=== PATIENT | female | born 1950 | race Caucasian/White ===

== ENCOUNTER → 2019-01-12 | Outpatient (CLI) | payer MEDICARE, OTHER ==
[2019-01-12 12:20] LABS: CLARITY,URINE CLOUDY; COLOR,URINE YELLOW; GLUCOSE, URINE (UA) NEGATIVE (NEGATIVE); KETONES,URINE NEGATIVE (NEGATIVE); NITRITE,URINE POSITIVE (NEGATIVE); PH,URINE 5.5 (5-9); PROTEIN,URINE 2+ (NEGATIVE)
[2019-01-12 12:21] LABS: BACTERIA,URINE MODERATE /HPF; BILIRUBIN,URINE 1+ (NEGATIVE); LEUKOCYTE ESTERASE ,URINE 2+ (NEGATIVE); RBC,URINE 50-100 /HPF; SQUAMOUS EPITHELIAL CELL,UR 0-2 /HPF; UROBILINOGEN,URINE 0.2 MG/DL (NORMAL); WBC,URINE TNTC /HPF
== END ==
LOC: LAB FS 08:37
PROVIDERS: ATTEND Family Medicine
DX: N30.00 Acute cystitis without hematuria (principal); Z87.440 Personal history of urinary (tract) infections
CPT/HCPCS: 81000; 87077; 87088; 87184; 87186

== ENCOUNTER 2019-03-07 14:13 | Outpatient (RCR) | payer MEDICARE, OTHER ==
[2019-03-07 14:35] LABS: BILIRUBIN,URINE NEGATIVE (NEGATIVE); CLARITY,URINE CLOUDY; COLOR,URINE YELLOW; GLUCOSE, URINE (UA) NEGATIVE (NEGATIVE); KETONES,URINE 1+ (NEGATIVE); NITRITE,URINE NEGATIVE (NEGATIVE); PH,URINE 5.5 (5-9); PROTEIN,URINE TRACE (NEGATIVE)
[2019-03-07 14:36] LABS: BACTERIA,URINE MODERATE /HPF; CALCIUM OXALATE CRYSTALS,UR MODERATE /LPF; LEUKOCYTE ESTERASE ,URINE TRACE (NEGATIVE); WBC,URINE 50-100 /HPF
== END 2019-06-05 | disposition home or self-care (01) ==
LOC: LAB 14:13
PROVIDERS: ATTEND Family Medicine
DX: N39.0 Urinary tract infection, site not specified (principal)
CPT/HCPCS: 81000; 87088

== ENCOUNTER → 2019-10-14 | Outpatient (CLI) | payer MEDICARE, OTHER ==
[2019-10-14 18:30] LABS: COLOR,URINE YELLOW
[2019-10-14 18:31] LABS: BACTERIA,URINE TRACE /HPF; BILIRUBIN,URINE NEGATIVE (NEGATIVE); CLARITY,URINE CLEAR; GLUCOSE, URINE (UA) NEGATIVE (NEGATIVE); KETONES,URINE NEGATIVE (NEGATIVE); LEUKOCYTE ESTERASE ,URINE NEGATIVE (NEGATIVE); NITRITE,URINE NEGATIVE (NEGATIVE); PH,URINE 8.5 (5-9); PROTEIN,URINE NEGATIVE (NEGATIVE); RBC,URINE 0-2 /HPF; SQUAMOUS EPITHELIAL CELL,UR RARE /HPF; WBC,URINE 0-2 /HPF
== END ==
LOC: LAB FS 17:23
PROVIDERS: ATTEND Family Medicine
DX: R50.9 Fever, unspecified (principal)
CPT/HCPCS: 81000; 87804

== ENCOUNTER → 2019-12-07 | Outpatient (CLI) | payer MEDICARE, OTHER ==
[2019-12-07 10:35] LABS: POTASSIUM 3.6 MMOL/L (3.6-5.0)
[2019-12-07 10:36] LABS: BILIRUBIN,TOTAL 0.8 MG/DL (0.1-1.0); CALCIUM 9.9 MG/DL (8.5-10.1); CREATININE SERUM 1.1 MG/DL (0.60-1.30); TOTAL PROTEIN 7.3 GM/DL (6.4-8.2)
[2019-12-07 10:38] LABS: ALBUMIN 3.8 GM/DL (3.2-4.5)
[2019-12-07 15:33] LABS: FREE T4 (FREE THYROXINE) 1.09 NG/DL (0.70-1.48)
== END ==
LOC: LAB FS 08:38
PROVIDERS: ATTEND Family Medicine
DX: E03.9 Hypothyroidism, unspecified (principal); E78.5 Hyperlipidemia, unspecified
CPT/HCPCS: 36415; 80053; 80061; 84439; 84443

== ENCOUNTER → 2019-12-16 | Outpatient (CLI) | payer MEDICARE, OTHER ==
[2019-12-16 16:33] LABS: BACTERIA,URINE FEW /HPF; BILIRUBIN,URINE NEGATIVE (NEGATIVE); CLARITY,URINE CLEAR; COLOR,URINE YELLOW; GLUCOSE, URINE (UA) NEGATIVE (NEGATIVE); KETONES,URINE TRACE (NEGATIVE); LEUKOCYTE ESTERASE ,URINE NEGATIVE (NEGATIVE); NITRITE,URINE NEGATIVE (NEGATIVE); PH,URINE 6.5 (5-9); PROTEIN,URINE TRACE (NEGATIVE); RBC,URINE 0-2 /HPF
[2019-12-16 16:34] LABS: GRANULAR CASTS,URINE 0-2 /LPF
[2019-12-16 16:44] LABS: BASOPHILS # (AUTO) 0.1 10^3/uL (0.0-0.1); BASOPHILS % (AUTO) 2 % (0-10); EOSINOPHILS # (AUTO) 0.4 10^3/uL (0.0-0.3); EOSINOPHILS % (AUTO) 6 % (0-10); ERYTHROCYTE SEDIMENTATION RATE 6 MM/HR (0-30); HEMATOCRIT 38 % (35-52); LYMPHOCYTES # (AUTO) 1.7 X 10^3 (1.0-4.0); LYMPHOCYTES % (AUTO) 30 % (12-44); MEAN CORPUSCULAR HEMOGLOBIN 26 PG (25-34); MEAN CORPUSCULAR HGB CONC 32 G/DL (32-36); MEAN CORPUSCULAR VOLUME 83 FL (80-99); MEAN PLATELET VOLUME 10.7 FL (7.4-10.4); MONOCYTES # (AUTO) 0.5 X 10^3 (0.0-1.0); MONOCYTES % (AUTO) 8 % (0-12); NEUTROPHILS # (AUTO) 2.9 X 10^3 (1.8-7.8); NEUTROPHILS % (AUTO) 53 % (42-75); PLATELET COUNT 335 10^3/uL (130-400); RED CELL DISTRIBUTION WIDTH 15.6 % (10.0-14.5); WHITE BLOOD COUNT 5.5 10^3/uL (4.3-11.0)
== END ==
LOC: LAB FS 14:43
PROVIDERS: ATTEND Family Medicine
DX: R30.0 Dysuria (principal); R53.82 Chronic fatigue, unspecified; M25.541 Pain in joints of right hand
CPT/HCPCS: 36415; 81000; 82607; 85025; 85652; 86038; 86039; 86141; 87088

== ENCOUNTER → 2020-01-18 | Outpatient (CLI) | payer MEDICARE, OTHER | LOC: LAB FS 12:22 | PROVIDERS: ATTEND Family Medicine | DX: Z20.828 Contact with and (suspected) exposure to other viral communicable diseases (principal) | CPT/HCPCS: 87635 ==

== ENCOUNTER → 2020-06-07 | Outpatient (CLI) | payer MEDICARE, OTHER ==
[2020-06-07 14:12] LABS: CLARITY,URINE CLEAR; COLOR,URINE YELLOW; GLUCOSE, URINE (UA) NEGATIVE (NEGATIVE); KETONES,URINE TRACE (NEGATIVE); PROTEIN,URINE NEGATIVE (NEGATIVE)
[2020-06-07 14:13] LABS: BACTERIA,URINE NEGATIVE /HPF; BILIRUBIN,URINE NEGATIVE (NEGATIVE); LEUKOCYTE ESTERASE ,URINE NEGATIVE (NEGATIVE); NITRITE,URINE NEGATIVE (NEGATIVE); RBC,URINE 0-2 /HPF
[2020-06-07 14:15] LABS: BILIRUBIN,TOTAL 0.8 MG/DL (0.1-1.0); CALCIUM 9.8 MG/DL (8.5-10.1); CREATININE SERUM 0.98 MG/DL (0.60-1.30); POTASSIUM 3.8 MMOL/L (3.6-5.0); TOTAL PROTEIN 7.5 GM/DL (6.4-8.2)
== END ==
LOC: LAB FS 13:18
PROVIDERS: ATTEND Family Medicine
DX: I10 Essential (primary) hypertension (principal); N39.0 Urinary tract infection, site not specified; E53.8 Deficiency of other specified B group vitamins; E03.9 Hypothyroidism, unspecified
CPT/HCPCS: 36415; 80053; 80061; 81000; 82607; 84443

== ENCOUNTER → 2020-07-31 | Outpatient (CLI) | payer MEDICARE, OTHER | LOC: LAB FS 10:00 | PROVIDERS: ATTEND Family Medicine | DX: Z20.828 Contact with and (suspected) exposure to other viral communicable diseases (principal) | CPT/HCPCS: 87635 ==

== ENCOUNTER 2020-10-29 09:49 | Emergency (ER) | payer MEDICARE, OTHER ==
--- NOTE | 2020-10-29 10:03 | ED Chest Pain ---
General Chief Complaint: Chest Pain Stated Complaint: CHEST PAIN Nursing Triage Note: Mid sternal chest pain that started after walking 1 mile. Started approx 20 minutes. Is nauseous but no vomiting. Has hx of htn. Nursing Sepsis Screen: No Definite Risk History of Present Illness Date Seen by Provider: Oct 29, 2020 Time Seen by Provider: 09:50 Initial Comments 70-year-old female presents with onset of chest pain just prior to arrival. She had just walked 1 mile, a normal routine activity without any discomfort or pain and afterwards noted when she was at rest to have some central chest pain. Denies radiation to neck jaw or extremity. Denies associated nausea or vomiting. Denies recent illness, cough, shortness of air, fever or chills. Denies history of any heart problems, she has had a stress test within the last 15 years which was normal. History of gastric reflux and she takes Protonix as well as Carafate daily. Allergies and Home Medications Allergies Coded Allergies: No Known Drug Allergies (Unverified , 10/29/20) Home Medications Nitroglycerin 0.4 Mg Tab.subl, 0.4 MG SL UD PRN for CHEST PAIN Prescribed by: FARRUKH MADDEN on 10/29/20 1301 Patient Home Medication List Home Medication List Reviewed: Yes Review of Systems Review of Systems Constitutional: No dizziness, No fever, No malaise, No weakness EENTM: No Symptoms Reported Respiratory: Denies Cough, Denies Shortness of Air, Denies SOA With Exertion, Denies SOA at Rest, Denies Stridor, Denies Wheezing Cardiovascular: See HPI, Chest Pain; Denies Edema, Denies Irregular Heart Rate, Denies Lightheadedness, Denies Palpitations, Denies Syncope Gastrointestinal: Denies Abdominal Pain, Denies Constipated, Denies Diarrhea, Denies Nausea, Denies Poor Appetite, Denies Vomiting Genitourinary: No Symptoms Reported Musculoskeletal: No back pain, No joint pain Skin: No change in color, No lesions, No rash Psychiatric/Neurological: Denies Anxiety, Denies Depressed, Denies Tingling, Denies Tremors, Denies Weakness Past Qbvefoz-Pouiqi-Gbucfe Hx Past Med/Social Hx: Reviewed Nursing Past Med/Soc Hx Patient Social History Recent Infectious Disease Expo: No Physical Exam Vital Signs Vital Signs - First Documented 10/29/20 09:52 Temp 35.5 Pulse 80 Resp 16 B/P (MAP) 191/116 (141) Pulse Ox 97 Capillary Refill : Less Than 3 Seconds Height, Weight, BMI Height: '" Weight: lbs. oz. kg; BMI Method: General Appearance: No Apparent Distress, WD/WN HEENT: PERRL/EOMI, Normal ENT Inspection Neck: Full Range of Motion, Non Tender, Supple Respiratory: Chest Non Tender, Lungs Clear, Normal Breath Sounds, No Accessory Muscle Use, No Respiratory Distress Cardiovascular: Regular Rate, Rhythm, No Edema, No JVD, Normal Peripheral Pulses Gastrointestinal: Normal Bowel Sounds, No Pulsatile Mass, Non Tender, Soft Extremity: Normal Capillary Refill, Normal Inspection, Non Tender Neurologic/Psychiatric: Alert, Oriented x3, No Motor/Sensory Deficits, Normal Mood/Affect Skin: Normal Color, Warm/Dry Progress/Results/Core Measures Results/Orders Lab Results Laboratory Tests Test 10/29/20 10:05 10/29/20 12:31 Range/Units White Blood Count 6.8 4.3-11.0 10^3/uL Red Blood Count 4.64 4.35-5.85 10^6/uL Hemoglobin 11.7 11.5-16.0 G/DL Hematocrit 37 35-52 % Mean Corpuscular Volume 80 80-99 FL Mean Corpuscular Hemoglobin 25 25-34 PG Mean Corpuscular Hemoglobin Concent 32 32-36 G/DL Red Cell Distribution Width 15.0 H 10.0-14.5 % Platelet Count 366 130-400 10^3/uL Mean Platelet Volume 10.8 H 7.4-10.4 FL Immature Granulocyte % (Auto) 0 % Neutrophils (%) (Auto) 44 42-75 % Lymphocytes (%) (Auto) 44 12-44 % Monocytes (%) (Auto) 8 0-12 % Eosinophils (%) (Auto) 3 0-10 % Basophils (%) (Auto) 1 0-10 % Neutrophils # (Auto) 2.9 1.8-7.8 X 10^3 Lymphocytes # (Auto) 3.0 1.0-4.0 X 10^3 Monocytes # (Auto) 0.6 0.0-1.0 X 10^3 Eosinophils # (Auto) 0.2 0.0-0.3 10^3/uL Basophils # (Auto) 0.1 0.0-0.1 10^3/uL Immature Granulocyte # (Auto) 0.0 0.0-0.1 10^3/uL Sodium Level 139 135-145 MMOL/L Potassium Level 3.4 L 3.6-5.0 MMOL/L Chloride Level 106 98-107 MMOL/L Carbon Dioxide Level 24 21-32 MMOL/L Anion Gap 9 5-14 MMOL/L Blood Urea Nitrogen 15 7-18 MG/DL Creatinine 0.89 0.60-1.30 MG/DL Estimat Glomerular Filtration Rate > 60 BUN/Creatinine Ratio 17 Glucose Level 92 70-105 MG/DL Calcium Level 9.0 8.5-10.1 MG/DL Corrected Calcium 9.2 8.5-10.1 MG/DL Total Bilirubin 0.5 0.1-1.0 MG/DL Aspartate Amino Transf (AST/SGOT) 15 5-34 U/L Alanine Aminotransferase (ALT/SGPT) 9 0-55 U/L Alkaline Phosphatase 54 40-136 U/L Troponin I < 0.30 < 0.30 <0.30 NG/ML Total Protein 6.9 6.4-8.2 GM/DL Albumin 3.7 3.2-4.5 GM/DL My Orders Orders - ROVENSTINE,FARRUKH L DO Ed Iv/Invasive Line Start (10/29/20 10:03) Chest 1 View Ap/Pa Only (10/29/20 10:03) Ekg Tracing (10/29/20 10:03) Cbc With Automated Diff (10/29/20 10:03) Comprehensive Metabolic Panel (10/29/20 10:03) Troponin I Fs (10/29/20 10:03) Aspirin Chewable Tablet (Baby Aspirin Ch (10/29/20 10:15) Nitroglycerin 0.4 Mg Btl 25's (Nitrostat (10/29/20 10:15) Ondansetron Injection (Zofran Injectio (10/29/20 10:30) Ondansetron Injection (Zofran Injectio (10/29/20 10:18) Troponin I Fs (10/29/20 12:30) Lidocaine 2% Viscous 15 Ml (Xylocaine Vi (10/29/20 11:00) Famotidine Injection (Pepcid Injection) (10/29/20 11:00) Antacid Suspension (Mylanta Suspension (10/29/20 11:00) Medications Given in ED Current Medications Medications Dose Ordered Sig/Dwight Route Start Time Stop Time Status Last Admin Dose Admin Al Hydrox/Mg Hydrox/Simethicone 30 ml ONCE ONCE PO 10/29/20 11:00 10/29/20 11:01 DC 10/29/20 10:56 30 ML Aspirin 324 mg ONCE ONCE PO 10/29/20 10:15 10/29/20 10:16 DC 10/29/20 10:08 324 MG Famotidine 20 mg ONCE ONCE IVP 10/29/20 11:00 10/29/20 11:01 DC 10/29/20 10:56 20 MG Lidocaine HCl 5 ml ONCE ONCE PO 10/29/20 11:00 10/29/20 11:01 DC 10/29/20 10:56 5 ML Nitroglycerin 0.4 mg NEEDED PRN SL 10/29/20 10:15 10/29/20 13:36 DC 10/29/20 10:30 0.4 MG Ondansetron HCl 4 mg ONCE ONCE IVP 10/29/20 10:30 10/29/20 10:31 DC 10/29/20 10:27 4 MG Vital Signs/I&O 10/29/20 10/29/20 09:52 13:36 Temp 35.5 Pulse 80 66 Resp 16 15 B/P (MAP) 191/116 (141) 130/74 Pulse Ox 97 96 Blood Pressure Mean: 141 Progress Progress Note : Progress Note Pain not significantly resolved with nitroglycerin x2. However, it did resolved after Pepcid and a GI cocktail with no return of pain to her whole ER stay. Troponin negative x2 with second at over 3 hours. Otherwise unremarkable with normal vital signs and normal EKG without ischemic change. Patient sent home w Rx for NTG and advised to schedule OutPt stress testing w Dr Romero. Called his office to notify, he has avail appt on @ 0900. Initial ECG Impression Date: Oct 29, 2020 Initial ECG Impression Time: 10:00 Initial ECG Rate: 78 Initial ECG Rhythm: Normal Sinus Initial ECG Intervals: Normal Initial ECG Impression: Normal Initial ECG Comparisson: No Previous ECG Available Departure Impression Primary Impression: Chest pain Qualified Codes: R07.9 - Chest pain, unspecified Disposition: HOME, SELF-CARE Condition: Improved Departure-Patient Inst. Referrals: DENA GARCIA MD (PCP/Family) Primary Care Physician EMIGDIO ROMERO MD Patient Instructions: Chest Pain (DC) Add. Discharge Instructions: Call Dr Romero's office to confirm scheduling of a stress test this week All discharge instructions reviewed with patient and/or family. Voiced understanding. Scripts Nitroglycerin (Nitroglycerin) 0.4 Mg Tab.subl 0.4 MG SL UD PRN for CHEST PAIN, #20 TAB Prov: FARRUKH MADDEN DO 10/29/20 FARRUKH MADDEN DO Oct 29, 2020 10:03
[2020-10-29] MEDS: NITROGLYCERIN 0.4 MG SL TABS BTL 25'S SL PRN ×2 (10:08→10:30)
[2020-10-29] MEDS ORDERED: ASPIRIN 81 MG CHEW (CHILDREN'S ASA) PO ONE (10:15)
[2020-10-29] MEDS ORDERED: ONDANSETRON 4 MG/2 ML (SDV) Z0FRAN ONE (10:18)
[2020-10-29 10:27] LABS: BASOPHILS % (AUTO) 1 % (0-10); EOSINOPHILS # (AUTO) 0.2 10^3/uL (0.0-0.3); EOSINOPHILS % (AUTO) 3 % (0-10); HEMATOCRIT 37 % (35-52); HEMOGLOBIN 11.7 G/DL (11.5-16.0); LYMPHOCYTES % (AUTO) 44 % (12-44); MEAN CORPUSCULAR HEMOGLOBIN 25 PG (25-34); MEAN CORPUSCULAR HGB CONC 32 G/DL (32-36); MEAN CORPUSCULAR VOLUME 80 FL (80-99); MEAN PLATELET VOLUME 10.8 FL (7.4-10.4); MONOCYTES # (AUTO) 0.6 X 10^3 (0.0-1.0); MONOCYTES % (AUTO) 8 % (0-12); NEUTROPHILS # (AUTO) 2.9 X 10^3 (1.8-7.8); NEUTROPHILS % (AUTO) 44 % (42-75); PLATELET COUNT 366 10^3/uL (130-400); WHITE BLOOD COUNT 6.8 10^3/uL (4.3-11.0)
[2020-10-29 10:28] LABS: BASOPHILS # (AUTO) 0.1 10^3/uL (0.0-0.1)
[2020-10-29] MEDS ORDERED: ONDANSETRON 4 MG/2 ML (SDV) Z0FRAN IVP ONE (10:30)
[2020-10-29 10:36] LABS: BUN/CREATININE RATIO 17; CARBON DIOXIDE 24 MMOL/L (21-32); CHLORIDE 106 MMOL/L (98-107); CREATININE SERUM 0.89 MG/DL (0.60-1.30); GFR ESTIMATED > 60; GLUCOSE 92 MG/DL (70-105); POTASSIUM 3.4 MMOL/L (3.6-5.0); SODIUM 139 MMOL/L (135-145)
[2020-10-29 10:37] LABS: ALANINE AMINOTRANSFERASE 9 U/L (0-55); ALBUMIN 3.7 GM/DL (3.2-4.5); ALKALINE PHOSPHATASE 54 U/L (40-136); BILIRUBIN,TOTAL 0.5 MG/DL (0.1-1.0); TOTAL PROTEIN 6.9 GM/DL (6.4-8.2)
--- NOTE | 2020-10-29 10:51 | Diagnostic Imaging Report ---
INDICATION: Chest pain. FINDINGS: The heart size is within normal limits. No vascular congestion. The lungs are clear. No failure, effusion, or pneumothorax. IMPRESSION: No acute appearing abnormality. Dictated by: Dictated on workstation # [id number]
[2020-10-29] MEDS ORDERED: FAMOTIDINE 20MG/2ML IV (PEPCID) IVP ONE (11:00)
[2020-10-29] MEDS ORDERED: ANTACID SUSP 30 ML UDC (MYLANTA) PO ONE (11:00)
[2020-10-29] MEDS ORDERED: LIDOCAINE 2% VISCOUS 15 ML UDC PO ONE (11:00)
[2020-10-29] MEDS ORDERED: NITR0.4T39 SL (13:01)
[2020-10-29 13:36] VITALS: BP 130/74
== END 2020-10-29 13:36 | disposition home or self-care (01) ==
LOC: EDUNIT# 09:49 → ER FS 09:51
DX: R07.2 Precordial pain (principal); I10 Essential (primary) hypertension; K21.9 Gastro-esophageal reflux disease without esophagitis; Z79.899 Other long term (current) drug therapy
CPT/HCPCS: 36415; 71045; 80053; 84484; 85025; 93005

== ENCOUNTER 2020-11-01 11:58 | Outpatient (CLI) | payer MEDICARE, OTHER ==
[~2020-11-01] VITALS: Ht 160 cm; Wt 81.6 kg
[~2020-11-01 11:58] MED LIST: NITR0.4T39 SL
[2020-11-02] MEDS ORDERED: PANT40TA2 PO (10:58)
[2020-11-02] MEDS ORDERED: MAGN250T13 PO (10:58)
[2020-11-02] MEDS ORDERED: MTC10T PO (10:58)
[2020-11-02] MEDS ORDERED: SUCR1TAB36 PO (10:58)
[2020-11-02] MEDS ORDERED: DULO30CA49 PO (10:58)
[2020-11-02] MEDS ORDERED: POTA99TA21 PO (10:58)
[2020-11-02] MEDS ORDERED: LEVO50TA PO (10:58)
[2020-11-02] MEDS ORDERED: CELE-63 PO (10:58)
[2020-11-02] MEDS ORDERED: FAMO-119 PO (10:58)
[2020-11-02] MEDS ORDERED: CALC-308 PO (10:58)
[2020-11-02] MEDS ORDERED: ZOLP10TA PO (10:58)
[2020-11-02] MEDS ORDERED: CETI10CA PO (10:58)
[2020-11-02] MEDS ORDERED: LISI10TA25 PO (10:58)
== END 2020-11-01 14:39 | disposition home or self-care (01) ==
LOC: PREOP 11:58
PROVIDERS: ATTEND Surgery
DX: Z01.818 Encounter for other preprocedural examination (principal)

== ENCOUNTER 2020-11-02 10:24 | Day surgery (SDC) | payer MEDICARE, OTHER ==
[2020-11-02] VITALS (10 sets, daily range): BP systolic 143–203; BP diastolic 84–119
[~2020-11-02] VITALS: Ht 160 cm; Wt 81.6 kg
[2020-11-02] MEDS ORDERED: LACTATED RINGERS 1,000 ML IV STA (10:25)
[2020-11-02] MEDS ORDERED: NS IV 500 ML 500 ML ONE (10:27)
[2020-11-02] MEDS ORDERED: HURRICAINE EXT TUBE (BENZOCAINE) XX PRN (10:30)
[2020-11-02] MEDS ORDERED: LIDOCAINE JELLY 2% 6 ML SYRINGE MM PRN (10:30)
[2020-11-02] MEDS ORDERED: POTA99TA21 PO (10:58)
[2020-11-02] MEDS ORDERED: CETI10CA PO (10:58)
[2020-11-02] MEDS ORDERED: LISI10TA25 PO (10:58)
[2020-11-02] MEDS ORDERED: ZOLP10TA PO (10:58)
[2020-11-02] MEDS ORDERED: MAGN250T13 PO (10:58)
[2020-11-02] MEDS ORDERED: FAMO-119 PO (10:58)
[2020-11-02] MEDS ORDERED: MTC10T PO (10:58)
[2020-11-02] MEDS ORDERED: DULO30CA49 PO (10:58)
[2020-11-02] MEDS ORDERED: SUCR1TAB36 PO (10:58)
[2020-11-02] MEDS ORDERED: PANT40TA2 PO (10:58)
[2020-11-02] MEDS ORDERED: LEVO50TA PO (10:58)
[2020-11-02] MEDS ORDERED: CALC-308 PO (10:58)
[2020-11-02] MEDS ORDERED: CELE-63 PO (10:58)
--- NOTE | 2020-11-02 11:26 | Conscious Sedation/ASA ---
Conscious Sedation Pre-Proced Time 11:00 ASA Score 2 For ASA 3 and 4: Consider anesthesia and medical clearance. Also, for patients with a history of failed moderate sedation consider anesthesia. Airway Lungs Heart ASA score ASA 1: a normal healthy patient ASA 2: a patient with a mild systemic disease (mid diabetes, controlled hypertension, obesity ASA 3: a patient with a severe systemic disease that limits activity (angina, COPD, prior Myocardial infarction) ASA 4: a patient with an incapacitating disease that is a constant threat to life (CHF, renal failure) ASA 5: a moribund patient not expected to survive 24 hrs. (ruptured aneurysm) ASA 6: a declared brain- patient whose organs are being harvested. For emergent operations, add the letter E after the classification Mallampati Classification Grade 2 Sedation Plan Analgesia, Amnesia, Plan communicated to team members, Discussed options with patient/fam, Discussed risks with patient/fam The patient is an appropriate candidate to undergo the planned procedure, sedation, and anesthesia. The patient immediately re-assessed prior to indication. CONNOR TOPETE MD Nov 02, 2020 11:26
--- NOTE | 2020-11-02 11:27 | Progress Note-Pre Operative ---
Pre-Operative Progress Note H&P Reviewed The H&P was reviewed, patient examined and no changes noted. Date Seen by Provider: Nov 02, 2020 Time Seen by Provider: 11:00 Date H&P Reviewed: Nov 02, 2020 Time H&P Reviewed: 11:00 Pre-Operative Diagnosis: GERD, epigastric pain CONNOR TOPETE MD Nov 02, 2020 11:27
--- NOTE | 2020-11-02 11:28 | Discharge Inst-Surgical ---
D/C Lap Instructions-EFREM Follow Up Appt in 2-4 weeks Activity as tolerated High Fiber Diet 25g or more per day Avoid Alcohol, Caffeine, Spicy [place] and Acid foods. Drink 64 fluid oz or more of fluids per day. Symptoms to Report: Fever over 101 degree F, Nausea/Vomiting If any problems/questions: Contact your physician or go to Emergency Room CONNOR TOPETE MD Nov 02, 2020 11:28
[2020-11-02] MEDS ORDERED: HYDROcodone/APAP 5 MG/325 MG (LORTAB) TAB PO PRN (11:30)
[2020-11-02] MEDS ORDERED: ONDANSETRON 4 MG/2 ML (SDV) Z0FRAN IVP PRN (11:30)
[2020-11-02] MEDS ORDERED: morphine INJ 10 MG/ML 1ML (SYR OR VIAL) IVP PRN ×2 (11:30)
[2020-11-02] MEDS ORDERED: ACETAMINOPHEN 325 MG TABLET PO PRN (11:30)
[2020-11-02] MEDS ORDERED: LIDOCAINE JELLY 2% 6 ML SYRINGE ONE (12:33)
[2020-11-02] MEDS ORDERED: MIDAZOLAM 5 MG/5 ML (VERSED) VIAL ONE ×2 (12:33)
[2020-11-02] MEDS ORDERED: HURRICAINE EXT TUBE (BENZOCAINE) ONE (12:34)
[2020-11-02] MEDS ORDERED: fentaNYL INJ 100 MCG/2 ML AMP ONE (12:34)
[2020-11-02] MEDS ORDERED: MIDAZOLAM 5 MG/5 ML (VERSED) VIAL IV ONE (14:00)
[2020-11-02] MEDS ORDERED: fentaNYL INJ 100 MCG/2 ML AMP IVP ONE (14:00)
--- NOTE | 2020-11-02 20:50 | OPERATIVE REPORT ---
DATE OF SERVICE: 11/02/2020 ATTENDING PRIMARY CARE PHYSICIAN: Dr. Sandy Glass. PREOPERATIVE DIAGNOSES: Gastroesophageal reflux disease, chest pain. POSTOPERATIVE DIAGNOSES: Reflux esophagitis stage II, moderate size hiatal hernia approximately 4 cm in size, slightly enlarged gastric pouch likely indicating inferior band slippage. No band erosion. Mild gastritis. PROCEDURE: EGD with biopsy. SURGEON: Connor Topete MD. ANESTHESIA: Conscious sedation. ESTIMATED BLOOD LOSS: Minimal. FINDINGS: Reflux esophagitis stage II, moderate size hiatal hernia approximately 4 cm in size, slightly enlarged gastric pouch. No band erosion. Mild gastritis. DISPOSITION: The patient tolerated the procedure well. INDICATIONS: The patient is a 70-year-old female referred over to us for ongoing issues with reflux for many years. She also does has had chest pain due to this; however, are not cardiac related. 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 basis. She has had a laparoscopic adjustable gastric band for what she feels to be close to 20 years and did lose 90 pounds at her best; however, has gained approximately 45 pounds back. DESCRIPTION OF PROCEDURE: The patient was brought to the endoscopy suite, laid in the left lateral decubitus position with head slightly elevated. After adequate IV pain and sedative medications and conscious sedation anesthesia, the mouthpiece was applied. The endoscope was placed in the mouth, visualizing the pharynx and hypopharyngeal region. Vocal cords, epiglottis and vallecula identified and appeared to be normal. Endoscope was then gently intubated. The esophageal opening and esophagus insufflated. The endoscope was then advanced through the first, second and third portion of esophagus at the level of the GE junction, and reflux esophagitis stage II identified. There were no ulcers or strictures identified in this region. A biopsy was taken with forceps with visualization of good hemostasis. The endoscope was then advanced into the stomach. The gastric pouch and endoscope retroflexed, visualizing a moderate size hiatal hernia approximately 4 cm in size. The gastric pouch appeared to be slightly enlarged, which may indicate inferior slippage of the band as well. The endoscope was then easily advanced through the aperture of the adjustable gastric band and an endoscope retroflexed visualizing no band erosion. There was a mild gastritis. No formal ulcerations, polyps, or any neoplasms. A biopsy was taken of the antrum to rule out H. pylori. The endoscope was then advanced to the pylorus and the first and second portion of the duodenum, which appeared normal with no distal obstructions. The endoscope was then slowly withdrawn while taking a second look and suctioning of residual air with no additional findings. The patient tolerated the procedure well. Due to her symptomatology as well as a hiatal hernia as well as likely an inferior band slippage. We will recommend removal of the laparoscopic adjustable gastric band and allow the irritate chronic inflammation to subside over time. She then reports that she would like to proceed with further workup and evaluation for laparoscopic gastric sleeve resection; however, she would also need a simultaneous hiatal hernia repair. Job ID: [id number] DocumentID: [id number] Dictated Date: 11/02/2020 13:09:39 Generalist Date: 11/02/2020 20:49:40 Dictated By: CONNOR TOPETE MD MTDD
== END 2020-11-02 14:00 | disposition home or self-care (01) ==
LOC: ENDO 10:24
PROVIDERS: ATTEND Surgery
DX: K21.00 Gastro-esophageal reflux disease with esophagitis, without bleeding (principal); K29.50 Unspecified chronic gastritis without bleeding; K44.9 Diaphragmatic hernia without obstruction or gangrene; I10 Essential (primary) hypertension; E03.9 Hypothyroidism, unspecified; Z20.822 Contact with and (suspected) exposure to COVID-19; Z98.84 Bariatric surgery status; Z79.899 Other long term (current) drug therapy; Z79.890 Hormone replacement therapy
CPT/HCPCS: 88305

== ENCOUNTER → 2020-11-06 | Outpatient (CLI) | payer MEDICARE, OTHER ==
[~2020-11-06] VITALS: Ht 162 cm; Wt 81.0 kg
[~2020-11-06] MED LIST changes: +CALC-308 PO; +CATHETER FLUSH 10 ML SYR IV PRN; +CELE-63 PO; +CETI10CA PO; +DULO30CA49 PO; +FAMO-119 PO; +LEVO50TA PO; +LISI10TA25 PO; +MAGN250T13 PO; +MTC10T PO; +PANT40TA2 PO; +POTA99TA21 PO; +REGADENOSON 0.4 MG/5 ML SYR (LEXISCAN) IV ONE; +SUCR1TAB36 PO; +ZOLP10TA PO
[2020-11-06 16:52] VITALS: BP 142/90
--- NOTE | 2020-11-06 16:53 | Cardiology Stress Test Report ---
Stress Test Report Date of Procedure/Referring: Date of Procedure: Nov 06, 2020 PCP Emigdio Romero MD Admitting Physician Sandy Glass MD Indications: CP Baseline Heart Rate: 73 Baseline Blood Pressure: Blood Pressure Systolic: 142 Blood Pressure Diastolic: 90 Baseline EKG: Baseline EKG: NSR Summary After explaining the procedure to the patient, she signed a consent and then brought to the stress nuclear laboratory. Patient received 0.4 mg Lexiscan for stress test, ECG, heart rate and blood pressure were monitored continuously. Resting and stress dose of radio tracer were injected, imaging was acquired and reviewed in short axis, horizontal long axis and vertical long axis views. TID: 0.93 SSS: 3 SDS: 2 EF: 60 1. Patient tolerated Lexiscan well 2. No significant ischemia or infarction on SPECT images 3. Normal left ventricular size, EF 60% EMIGDIO ROMERO MD Nov 06, 2020 16:52
== END ==
LOC: CARD 11:00
PROVIDERS: ATTEND Internal Medicine Cardiovascular Disease
DX: R07.9 Chest pain, unspecified (principal)
CPT/HCPCS: 78452; 93017; A9502

== ENCOUNTER 2020-12-20 05:37 | Outpatient (CLI) | payer MEDICARE, OTHER ==
[~2020-12-20] VITALS: Ht 162.6 cm; Wt 79.5 kg
[~2020-12-20 05:37] MED LIST changes: -CATHETER FLUSH 10 ML SYR IV PRN; -REGADENOSON 0.4 MG/5 ML SYR (LEXISCAN) IV ONE
== END 2020-12-21 13:05 | disposition home or self-care (01) ==
LOC: PREOP 05:37
PROVIDERS: ATTEND Surgery
DX: Z01.818 Encounter for other preprocedural examination (principal)

== ENCOUNTER 2020-12-27 08:23 | Day surgery (SDC) | payer MEDICARE, OTHER ==
--- NOTE | 2020-12-20 07:25 | HISTORY AND PHYSICAL ---
DATE OF SERVICE: DATE OF PROCEDURE: 12/27/2020. ATTENDING PRIMARY CARE PHYSICIAN: Dr. Sandy Glass. HISTORY OF PRESENT ILLNESS: The patient is a 70-year-old female, who is known to us. She has had ongoing issues for many years with reflux and substernal chest pressure as well as burning sensation. 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 She is status post laparoscopic adjustable gastric band, 20 years ago and reports that she did lose 90 pounds at her best; however, has regained half of this weight back. She did undergo an EGD by us on 11/02/2020 and was found to have a stage II reflux esophagitis and moderate size hiatal hernia that was approximately 4 cm in size and there was a slightly enlarged gastric pouch likely indicating inferior band slippage; however, no erosions. There was also a mild gastritis identified. Biopsies were negative for H. pylori as well as negative for Jones's esophagus. She was then seen in the office and did have all the fluid removed from the lap band. It was discussed with her at that time due to her symptoms as well as findings of the band slippage that we would recommend also proceeding with removal of the lap band. PAST MEDICAL HISTORY: Morbid obesity, hypertension, hypothyroidism, and arthritis. PAST SURGICAL HISTORY: Laparoscopic cholecystectomy in 2004, laparoscopic adjustable gastric band in 1999, and removal of kidney stones in 1988. ALLERGIES: No known drug allergies. MEDICATIONS: Magnesium 250 mg, potassium 99 mg, duloxetine 30 mg, calcium 200 mg, Protonix 40 mg, Celebrex 200 mg, lisinopril 10 mg, Synthroid 50 mcg, Reglan 10 mg, Zyrtec, Pepcid, sucralfate 1 gram and zolpidem. SOCIAL HISTORY: Negative for smoke and social for alcohol. FAMILY HISTORY: Mother, hypertension and stroke. Father, myocardial infarction, DVT, and hypertension. REVIEW OF SYSTEMS: This is a well-nourished female in no acute distress. She is not experiencing any shortness of breath or difficulty breathing. She does report substernal chest pressure as well as burning sensation. No shortness of breath or difficulty breathing. No abdominal pain. She does report intermittent episodes of nausea and vomiting. No diarrhea or constipation. No red blood per rectum. No dark tarry stools. No fever or chills. No recent inadvertent weight loss. All other review of systems negative. PHYSICAL EXAMINATION: VITAL SIGNS: Stable. Current weight is 181.3 at 5 feet 3 inches. CHEST: Clear. Good breath sounds bilaterally. HEART: Regular, no murmurs. EXTREMITIES: No lower extremity edema. Negative Homans sign. HEENT: No scleral icterus. NECK: No cervical lymphadenopathy. ABDOMEN: Soft, nontender, and nondistended. SKIN: Warm, dry and pink. NEUROLOGIC: Awake, alert and oriented x3. ASSESSMENT AND PLAN: A 70-year-old female, who is status post laparoscopic adjustable gastric band and has developed persistent symptoms of chest pressure and burning sensation as well as episodes of nausea and vomiting. She did undergo an EGD recently, which did show an inferior lap band slippage. She has had all the fluid removed from the band and it was discussed with the patient that due to her continued symptoms about proceeding with removal of the adjustable gastric band. The risks and benefits of the procedure as well as the procedure and home care instructions were explained to the patient. The patient verbalized understanding of instructions and agrees to proceed as planned. At this time, she would like to proceed with laparoscopic removal of the adjustable gastric band and subcutaneous port. Job ID: [id number] DocumentID: [id number] Dictated Date: 12/10/2020 10:11:16 Shipper Receiver Date: 12/10/2020 11:10:17 Dictated By: BRAYAN LAMBERT APRN
[2020-12-27] VITALS (11 sets, daily range): BP systolic 124–179; BP diastolic 74–108
[~2020-12-27] VITALS: Ht 162.6 cm; Wt 79.5 kg
[2020-12-27] MEDS ORDERED: LIDOCAINE/EPI 1%-1:200,000 (XYLOCAINE) 30 ML VIAL ONE (08:30)
[2020-12-27] MEDS: LACTATED RINGERS 1,000 ML IV PRN ×3 (08:43→12:17)
[2020-12-27] MEDS ORDERED: ceFAZolin 2 GM IV Premixed 50 ML IV ONE (08:45)
[2020-12-27 08:56] LABS: BASOPHILS # (AUTO) 0.1 10^3/uL (0.0-0.1); BASOPHILS % (AUTO) 2 % (0-10); EOSINOPHILS # (AUTO) 0.2 10^3/uL (0.0-0.3); EOSINOPHILS % (AUTO) 4 % (0-10); HEMATOCRIT 38 % (35-52); LYMPHOCYTES # (AUTO) 1.4 10^3/uL (1.0-4.0); LYMPHOCYTES % (AUTO) 25 % (12-44); MEAN CORPUSCULAR HEMOGLOBIN 25 pg (25-34); MEAN CORPUSCULAR HGB CONC 32 g/dL (32-36); MEAN CORPUSCULAR VOLUME 79 fL (80-99); MEAN PLATELET VOLUME 11.1 fL (9.0-12.2); MONOCYTES # (AUTO) 0.4 10^3/uL (0.0-1.0); MONOCYTES % (AUTO) 7 % (0-12); NEUTROPHILS # (AUTO) 3.3 10^3/uL (1.8-7.8); NEUTROPHILS % (AUTO) 61 % (42-75); PLATELET COUNT 398 10^3/uL (130-400); WHITE BLOOD COUNT 5.5 10^3/uL (4.3-11.0)
--- NOTE | 2020-12-27 08:56 | Progress Note-Pre Operative ---
Pre-Operative Progress Note H&P Reviewed The H&P was reviewed, patient examined and no changes noted. Date Seen by Provider: Dec 27, 2020 Time Seen by Provider: 08:55 Date H&P Reviewed: Dec 27, 2020 Time H&P Reviewed: 08:50 Pre-Operative Diagnosis: Nausea, Vomiting, Reflux, Lap band slippage BRAYAN LAMBERT APRN Dec 27, 2020 08:56
[2020-12-27] MEDS ORDERED: ACHD5005 PO (08:58)
--- NOTE | 2020-12-27 08:58 | Discharge Inst-Surgical ---
D/C Lap Instructions-KIDO Reconcile Patient Problems Problems Reviewed?: Yes New, Converted, or Re-Newed RX: RX on Chart Follow Up Appt in 2 weeks Activity as tolerated No driving for 24 hours No driving while on pain medications Incentive Spirometry use every 2 hours while awake Regular Diet Symptoms to Report: Fever over 101 degree F, Nausea/Vomiting Infection Signs and Symptoms to report: Increased redness, Foul odor of wound, Increased drainage Bathing instructions: May shower Operative Area Clean/Dry; Keep incision clean/dry If any problems/questions: Contact your physician or go to Emergency Room BRAYAN LAMBERT APRN Dec 27, 2020 08:58
[2020-12-27] MEDS ORDERED: ACETAMINOPHEN 325 MG TABLET PO PRN (09:00)
[2020-12-27] MEDS ORDERED: HYDROcodone/APAP 5 MG/325 MG (LORTAB) TAB PO ONE (09:00)
[2020-12-27] MEDS ORDERED: ONDANSETRON 4 MG/2 ML (SDV) Z0FRAN IVP PRN (09:00)
[2020-12-27] MEDS ORDERED: morphine INJ 10 MG/ML 1ML (SYR OR VIAL) IVP PRN (09:00)
[2020-12-27] MEDS ORDERED: MIDAZOLAM 2 MG/2 ML (VERSED) VIAL ONE (09:36)
[2020-12-27] MEDS ORDERED: fentaNYL INJ 100 MCG/2 ML AMP ONE (09:37)
[2020-12-27] MEDS ORDERED: SEVOFLURANE (ULTANE) 15 ML INHAL SOLN ONE ×2 (10:43→11:07)
[2020-12-27] MEDS ORDERED: ONDANSETRON 4 MG/2 ML (SDV) Z0FRAN ONE (10:43)
[2020-12-27] MEDS ORDERED: ROCURONIUM 10 MG/ML 5 ML SYRINGE IV ONE (10:43)
[2020-12-27] MEDS ORDERED: ESMOLOL 100 MG/10 ML (BREVIBLOC) VIAL ONE (10:43)
[2020-12-27] MEDS ORDERED: KETOROLAC 30 MG/ML VIAL ONE (11:07)
--- NOTE | 2020-12-27 11:14 | Progress Note-Post Operative ---
Post-Operative Progess Note Surgeon (s)/Tin Assorter (s) Surgeon CONNOR TOPETE MD Tin Assorter: chandni rutledge [employer] ENGINEER Pre-Operative Diagnosis Nausea, Vomiting, Reflux, Lap band slippage Post-Operative Diagnosis same Procedure & Operative Findings Date of Procedure 12/27/20 Procedure Performed/Findings diagnostic laparoscopy, removal gastric band and subcutaneous port. Anesthesia Type get Estimated Blood Loss Estimated blood loss (mL): minimal Specimens/Packing Specimens Removed none CONNOR TOPETE MD Dec 27, 2020 11:14
[2020-12-27] MEDS: ONDANSETRON 4 MG/2 ML (SDV) Z0FRAN IVP PRN ×2 (11:39→12:40)
[2020-12-27] MEDS ORDERED: morphine INJ 10 MG/ML 1ML (SYR OR VIAL) IVP ONE (11:45)
[2020-12-27] MEDS ORDERED: HYDROmorphone 2 MG/ML VIAL (DILAUDID) IV ONE (11:45)
[2020-12-27] MEDS ORDERED: GLYCOPYRROLATE 0.2 MG/ML (ROBINUL) 2 ML VIAL ONE (12:07)
[2020-12-27] MEDS ORDERED: PROMETHAZINE INJ 25 MG/ML (PHENERGAN) AMP IVP ONE (12:15)
[2020-12-27] MEDS ORDERED: HYDROcodone/APAP 5 MG/325 MG (LORTAB) TAB ONE (13:36)
--- NOTE | 2020-12-27 15:34 | OPERATIVE REPORT ---
DATE OF SERVICE: 12/27/2020 ATTENDING PRIMARY CARE PHYSICIAN: Dr. Sandy Glass. PREOPERATIVE DIAGNOSES: Inferior band slippage and gastroesophageal reflux disease. POSTOPERATIVE DIAGNOSES: Inferior band slippage and gastroesophageal reflux disease. PROCEDURES PERFORMED: Diagnostic laparoscopy and removal of adjustable gastric band and subcutaneous port. SURGEON: Connor Topete MD. SENIOR SALES ENGINEER: Severiano Arredondo APRN. ANESTHESIA: General endotracheal. ESTIMATED BLOOD LOSS: Minimal. FINDINGS: Inferior band slippage. No ischemic changes. DISPOSITION: The patient tolerated the procedure well. INDICATIONS FOR PROCEDURE: The patient is a 70-year-old female known to us. She has had ongoing issues for gastroesophageal reflux disease as well as substernal chest pressure and burning sensation. She has been on PPI acid reducers as well as H2 antagonist and Carafate, which did help initially; however, became less effective over the time. She had a laparoscopic adjustable gastric band 20 years ago in [place] and was able to lose 90 pounds at her best; however, has regained half of her weight back. An EGD was performed on 11/02/2020 and she was found to have a stage II reflux esophagitis and moderate size hiatal hernia, 4 cm in size as well as an enlarged gastric pouch indicating an inferior band slippage and no erosions. The patient had ongoing issues with reflux and would like to have the band removed. DESCRIPTION OF PROCEDURE: The patient was brought to the operating room and laid supine on the table. After adequate IV pain and sedative medications and general endotracheal intubation, the abdomen was prepped and draped in a standard surgical fashion. A 0.5% Marcaine with epinephrine was used to anesthetize the overlying skin in the right upper abdominal quadrant and a transverse skin incision was made using a 15 blade. A 0 silk suture was applied to the medial aspect incision for retraction and a Veress needle inserted with a low opening pressure of 0 mmHg. The abdomen was then insufflated to 15 mmHg pressure. The Veress needle was removed and a 5 mm XL trocar placed followed by a 5 mm 45-degree angle laparoscope visualizing the peritoneal cavity. A four-quadrant abdominal exploration was performed. There was mild hepatomegaly. There appeared to be mild inferior slippage of the band based on the angulation from the vertebrae. There were no ischemic changes. We then proceeded to place a midabdominal left to midline 10 mm port next to the subcutaneous port under direct visualization after the skin and peritoneal lining were anesthetized using 0.5% Marcaine with epinephrine and a transverse skin incision was made using a 15 blade. In a similar manner, a right upper abdominal quadrant 5 mm port was placed. The patient was then placed in a steep reverse Trendelenburg position and the scar tissue around the buckle was then dissected using a blunt dissection as well as the Sonicision. This was Allergan 10 band and the buckle was then cut using an EndoShears. The adjustable gastric band was then pulled through around the fibrinous tract with minimal resistance and visualization of good hemostasis. The skin incision along the 10 mm port site was then extended using a 15 blade and the subcutaneous reservoir was then dissected out using electrocautery. The entire band tubing and the port was then removed intact. The fascia and peritoneum to the 10 mm port site were then closed under direct visualization using a Julio-Serenity device and 0 Vicryl suture. The abdomen was desufflated and the remaining ports removed. All skin incisions were closed using 4-0 Monocryl running subcuticular sutures. Wounds were then cleaned and covered with Dermabond. The patient tolerated the procedure well. We will start IV normal pain medication as well as a clear liquid diet. When she is tolerating clears, has good pain control with oral pain medications, and is ambulating well, we will discharge her home. She will be instructed to do no heavy lifting or exertion for the next two weeks. Job ID: [id number] DocumentID: [id number] Dictated Date: 12/27/2020 11:15:00 [employer] Home General Manager Date: 12/27/2020 15:34:06 Dictated By: CONNOR TOPETE MD
[2020-12-27] MEDS ORDERED: NEOSTIGMINE 3 MG/3 ML VIAL ONE (17:04)
--- NOTE | 2020-12-27 17:17 | Anesthesia-General Post-Op ---
General Patient Condition Mental Status/LOC: Same as Preop Cardiovascular: Satisfactory Nausea/Vomiting: Absent Respiratory: Satisfactory Pain: Controlled Complications: Absent Post Op Complications Complications None Follow Up Care/Instructions Patient Instructions None needed. Anesthesia/Patient Condition Patient Condition Patient is doing well, no complaints, stable vital signs, no apparent adverse anesthesia problems. No complications reported per nursing. ISACC SMART CRNA Dec 27, 2020 17:17
== END 2020-12-27 13:50 | disposition home or self-care (01) ==
LOC: SDC 08:23
PROVIDERS: ATTEND Surgery
DX: K95.09 Other complications of gastric band procedure (principal); K21.00 Gastro-esophageal reflux disease with esophagitis, without bleeding; I10 Essential (primary) hypertension; M19.90 Unspecified osteoarthritis, unspecified site; E03.9 Hypothyroidism, unspecified; E66.01 Morbid (severe) obesity due to excess calories; Z68.30 Body mass index [BMI] 30.0-30.9, adult; Z79.890 Hormone replacement therapy; Z79.899 Other long term (current) drug therapy; Z90.49 Acquired absence of other specified parts of digestive tract; Z82.3 Family history of stroke
CPT/HCPCS: 36415; 85025; 87081

== ENCOUNTER → 2021-05-07 | Outpatient (CLI) | payer MEDICARE, OTHER ==
[~2021-05-07] MED LIST changes: +ACHD5005 PO
[2021-05-07 09:19] LABS: BILIRUBIN,URINE NEGATIVE (NEGATIVE); CLARITY,URINE SL CLOUDY; COLOR,URINE YELLOW; GLUCOSE, URINE (UA) NEGATIVE (NEGATIVE); KETONES,URINE NEGATIVE (NEGATIVE); LEUKOCYTE ESTERASE ,URINE 2+ (NEGATIVE); NITRITE,URINE NEGATIVE (NEGATIVE); PH,URINE 5.5 (5-9); PROTEIN,URINE NEGATIVE (NEGATIVE)
[2021-05-07 09:48] LABS: BACTERIA,URINE TRACE /HPF; HYALINE CASTS, URINE >50 /LPF; SQUAMOUS EPITHELIAL CELL,UR 0-2 /HPF; WBC,URINE 25-50 /HPF
== END ==
LOC: LAB FS 09:05
PROVIDERS: ATTEND Family Medicine
DX: R30.9 Painful micturition, unspecified (principal)
CPT/HCPCS: 81000; 87077; 87088

== ENCOUNTER 2021-05-13 12:53 | Observation (INO) | payer MEDICARE, OTHER ==
[~2021-05-13] VITALS: Ht 162.6 cm; Wt 85.5 kg
[2021-05-13] VITALS (10 sets, daily range): BP systolic 107–145; BP diastolic 79–101
[2021-05-13] MEDS ORDERED: ENOXAPARIN 100 MG/1 ML (LOVENOX) SYR SC STA (13:08)
[2021-05-13] MEDS ORDERED: NS IV 1000 ML 1,000 ML IV STA (13:08)
[2021-05-13 13:20] LABS: HEMATOCRIT 38 % (35-52); HEMOGLOBIN 11.7 g/dL (11.5-16.0); MEAN CORPUSCULAR HEMOGLOBIN 24 pg (25-34); MEAN CORPUSCULAR VOLUME 77 fL (80-99); WHITE BLOOD COUNT 10.8 10^3/uL (4.3-11.0)
[2021-05-13 13:21] LABS: BASOPHILS % (AUTO) 1 % (0-10); EOSINOPHILS % (AUTO) 4 % (0-10); LYMPHOCYTES # (AUTO) 1.9 X 10^3 (1.0-4.0); LYMPHOCYTES % (AUTO) 18 % (12-44); MEAN CORPUSCULAR HGB CONC 31 g/dL (32-36); MEAN PLATELET VOLUME 10.7 fL (9.0-12.2); MONOCYTES # (AUTO) 1.1 X 10^3 (0.0-1.0); MONOCYTES % (AUTO) 11 % (0-12); NEUTROPHILS # (AUTO) 7.2 X 10^3 (1.8-7.8); NEUTROPHILS % (AUTO) 66 % (42-75); PLATELET COUNT 450 10^3/uL (130-400)
[2021-05-13 13:22] LABS: BASOPHILS # (AUTO) 0.1 10^3/uL (0.0-0.1); EOSINOPHILS # (AUTO) 0.4 10^3/uL (0.0-0.3)
--- NOTE | 2021-05-13 13:26 | Diagnostic Imaging Report ---
INDICATION: Cough, new onset atrial fibrillation Frontal chest obtained at 1:04 p.m. and compared to 10/29/2020. Heart is mildly enlarged. Mediastinal silhouette is unremarkable. There is no pneumothorax or pleural fluid or consolidation. IMPRESSION: No acute process in the chest. Heart is mildly enlarged. Dictated by: Dictated on workstation # [id number]
[2021-05-13 13:27] LABS: INR 0.9 (0.8-1.4)
[2021-05-13 13:48] LABS: BILIRUBIN,TOTAL 0.3 MG/DL (0.1-1.0); CALCIUM 9.6 MG/DL (8.5-10.1); CREATININE SERUM 0.96 MG/DL (0.60-1.30); MAGNESIUM 1.9 MG/DL (1.6-2.4); POTASSIUM 3.9 MMOL/L (3.6-5.0); TOTAL PROTEIN 8.1 GM/DL (6.4-8.2)
[2021-05-13 13:49] LABS: ALBUMIN 4.2 GM/DL (3.2-4.5)
[2021-05-13] MEDS ORDERED: dilTIAZem DRIP PRE-MIX 125 ML IV STA (13:52)
--- NOTE | 2021-05-13 13:56 | ED Cardiac General ---
History of Present Illness General Chief Complaint: Cardiac/General Problems Stated Complaint: TACHY Nursing Triage Note: Patient presents to the ED with c/o racing heart rate. She reports that she started feeling a little weird this morning after her walk; felt like her heart was beating fast. She finally told her and was brought to the ED for further evaluation. Source: patient, spouse History of Present Illness Date Seen by Provider: May 13, 2021 Time Seen by Provider: 12:55 Initial Comments 71 yo female presenting with complaint of heart racing and not feeling well. She states that this started this morning and was feeling worse after she went for a mile walk. She has had some nausea but no vomiting. She has had a mild cough over the last few weeks but it was improving. She just finished a course of Cipro for her UTI. She denies any past medical history in terms of her heart. She had a stress test with cardiac testing within the last year. She denies having any chest pain. She feels a little short of breath with her heart racing. She denies any diarrhea, fever, chills, blood in her urine, blood in her stool. Her reports that she has periodically reported some shortnes s of breath and not feeling well at times but he was never able to catch fast or irregular heart rate when she felt bad. Timing/Duration: 4-6 hours Severity: moderate Activities at Onset: other (did not feel well when got up but she did a mile walk and it was worse after that) Prior CP/Workup: no prior chest pain, stress test NTG SL INWARD TOLL OPERATOR: No ASA po INWARD TOLL OPERATOR: No Associated Systoms: No Chest Pain; Cough; No Diaphoresis, No Fever/Chills, No Headaches, No Loss of Appetite, No Malaise; Nausea/Vomiting (nausea but no vomiting); No Seizure; Shortness of Air (while heart is racing); No Syncope, No Weakness Allergies and Home Medications Allergies Coded Allergies: No Known Drug Allergies (Unverified , 10/29/20) Patient Home Medication List Home Medication List Reviewed: Yes Calcium Carbonate (Calcium) 500 Mg Tab.chew, 200 MG PO DAILY, (Reported) Entered as Reported by: REMBERTO SIFUENTES on 11/02/20 1054 Celecoxib (Celecoxib) 200 Mg Capsule, 200 MG PO DAILY, (Reported) Entered as Reported by: REMBERTO SIFUENTES on 11/02/20 1058 Cetirizine HCl (Zyrtec) 10 Mg Capsule, 10 MG PO HS, (Reported) Entered as Reported by: REMBERTO SIFUENTES on 11/02/20 105 Duloxetine HCl (Duloxetine HCl) 30 Mg Capsule.dr, 30 MG PO DAILY, (Reported) Entered as Reported by: REMBERTO SIFUENTES on 11/02/20 105 Famotidine (Pepcid) 20 Mg Tablet, 20 MG PO HS, (Reported) Entered as Reported by: REMBERTO SIFUENTES on 11/02/20 105 Hydrocodone/Acetaminophen (Hydrocodone-Acetamin 5-325 mg) 1 Each Tablet, 1-2 TAB PO Q4H PRN for PAIN-MODERATE (5-7) Prescribed by: BRAYAN LAMBERT on 12/27/20 0858 Levothyroxine Sodium (Synthroid) 50 Mcg Tablet, 50 MCG PO HS, (Reported) Entered as Reported by: REMBERTO SIFUENTES on 11/02/201057 Lisinopril (Lisinopril) 10 Mg Tablet, 10 MG PO HS, (Reported) Entered as Reported by: REMBERTO SIFUENTES on 11/02/201057 Magnesium Oxide (Magnesium) 250 Mg Tablet, 250 MG PO DAILY, (Reported) Entered as Reported by: REMBERTO SIFUENTES on 11/02/201057 Metoclopramide HCl (Metoclopramide HCl) 10 Mg Tablet, 10 MG PO BIDAC, (Reported) Entered as Reported by: REMBERTO SIFUENTES on 11/02/20 105 Pantoprazole Sodium (Protonix) 40 Mg Tablet.dr, 40 MG PO DAILY, (Reported) Entered as Reported by: REMBERTO SIFUENTES on 11/02/201057 Potassium Gluconate (Potassium) 99 Mg Tablet, 99 MG PO DAILY, (Reported) Entered as Reported by: REMBERTO SIFUENTES on 11/02/201057 Sucralfate (Carafate) 1 Gm Tablet, 1 GM PO HS, (Reported) Entered as Reported by: REMBERTO SIFUENTES on 11/02/201057 Zolpidem Tartrate (Ambien) 10 Mg Tablet, 10 MG PO HS, (Reported) Entered as Reported by: REMBERTO SIFUENTES on 11/02/201057 Review of Systems Review of Systems Constitutional: No chills; dizziness (since heart racing); No fever EENTM: No Symptoms Reported Respiratory: See HPI Cardiovascular: See HPI; Denies Chest Pain; Irregular Heart Rate, Lightheadedness, Palpitations Gastrointestinal: Nausea; Denies Vomiting Genitourinary: No Symptoms Reported Musculoskeletal: no symptoms reported Skin: no symptoms reported Psychiatric/Neurological: Denies Numbness, Denies Paresthesia Endocrine: No Symptoms Reported Hematologic/Lymphatic: Denies Blood Clots Past Oaplmoc-Tvzrke-Jknpqw Hx Patient Social History Tobacco Use?: No Use of E-Cig and/or Vaping dev: No Substance use?: No Alcohol Use?: No Pt feels they are or have been: No Immunizations Up To Date First/Initial COVID19 Vaccinat: SEPTEMBER 2020 Second COVID19 Vaccination Ra: OCTOBER 2020 Seasonal Allergies Seasonal Allergies: No Past Medical History Surgery/Hospitalization HX: Hypthyroidism, HTN, GERD, Depression. Surgeries: Yes (lap band; lithotripsy ) Gallbladder Respiratory: No Currently Using CPAP: No Currently Using BIPAP: No Cardiac: Yes Atrial Fibrillation, Hypertension Neurological: No Genitourinary: Yes Kidney Stones Gastrointestinal: Yes Gastroesophageal Reflux Musculoskeletal: No Endocrine: Yes Hypothyroidsim HEENT: No Cancer: No Psychosocial: No Integumentary: No Blood Disorders: Yes (B 12 deficiency ) Physical Exam Vital Signs Vital Signs - First Documented 05/13/21 13:05 Temp 36.2 Pulse 146 Resp 16 B/P (MAP) 143/92 (109) Pulse Ox 96 O2 Delivery Room Air Capillary Refill : Less Than 3 Seconds Height, Weight, BMI Height: '" Weight: lbs. oz. kg; 30.06 BMI Method: General Appearance: No Apparent Distress, WD/WN HEENT: PERRL/EOMI, Pharynx Normal Neck: Full Range of Motion, Normal Inspection, Non Tender, Supple Respiratory: Chest Non Tender, Lungs Clear, Normal Breath Sounds, No Accessory Muscle Use, No Respiratory Distress Cardiovascular: Normal Peripheral Pulses, Irregularly Irregular, Tachycardia Gastrointestinal: Normal Bowel Sounds, No Pulsatile Mass, Non Tender, Soft Extremity: Normal Capillary Refill, Normal Inspection, No Calf Tenderness, No Pedal Edema Neurologic/Psychiatric: Alert, Oriented x3 Skin: Normal Color, Warm/Dry Progress/Results/Core Measures Results/Orders Lab Results Laboratory Tests Test 05/13/21 13:05 Range/Units White Blood Count 10.8 4.3-11.0 10^3/uL Red Blood Count 4.93 3.80-5.11 10^6/uL Hemoglobin 11.7 11.5-16.0 g/dL Hematocrit 38 35-52 % Mean Corpuscular Volume 77 L 80-99 fL Mean Corpuscular Hemoglobin 24 L 25-34 pg Mean Corpuscular Hemoglobin Concent 31 L 32-36 g/dL Red Cell Distribution Width 16.0 H 10.0-14.5 % Platelet Count 450 H 130-400 10^3/uL Mean Platelet Volume 10.7 9.0-12.2 fL Immature Granulocyte % (Auto) 1 % Neutrophils (%) (Auto) 66 42-75 % Lymphocytes (%) (Auto) 18 12-44 % Monocytes (%) (Auto) 11 0-12 % Eosinophils (%) (Auto) 4 0-10 % Basophils (%) (Auto) 1 0-10 % Neutrophils # (Auto) 7.2 1.8-7.8 X 10^3 Lymphocytes # (Auto) 1.9 1.0-4.0 X 10^3 Monocytes # (Auto) 1.1 H 0.0-1.0 X 10^3 Eosinophils # (Auto) 0.4 H 0.0-0.3 10^3/uL Basophils # (Auto) 0.1 0.0-0.1 10^3/uL Immature Granulocyte # (Auto) 0.1 0.0-0.1 10^3/uL Prothrombin Time 13.0 12.2-14.7 SEC INR Comment 0.9 0.8-1.4 Activated Partial Thromboplast Time 28 24-35 SEC Sodium Level 139 135-145 MMOL/L Potassium Level 3.9 3.6-5.0 MMOL/L Chloride Level 102 98-107 MMOL/L Carbon Dioxide Level 23 21-32 MMOL/L Anion Gap 14 5-14 MMOL/L Blood Urea Nitrogen 16 7-18 MG/DL Creatinine 0.96 0.60-1.30 MG/DL Estimat Glomerular Filtration Rate 57 BUN/Creatinine Ratio 17 Glucose Level 126 H 70-105 MG/DL Calcium Level 9.6 8.5-10.1 MG/DL Corrected Calcium 9.4 8.5-10.1 MG/DL Magnesium Level 1.9 1.6-2.4 MG/DL Total Bilirubin 0.3 0.1-1.0 MG/DL Aspartate Amino Transf (AST/SGOT) 17 5-34 U/L Alanine Aminotransferase (ALT/SGPT) 11 0-55 U/L Alkaline Phosphatase 75 40-136 U/L Troponin I < 0.30 <0.30 NG/ML Pro-B-Type Natriuretic Peptide 549.6 H <75.0 PG/ML Total Protein 8.1 6.4-8.2 GM/DL Albumin 4.2 3.2-4.5 GM/DL Lipase 26 8-78 U/L My Orders Orders - ENYART,RILEY De Santiago MD Cbc With Automated Diff (05/13/21 13:08) Magnesium (05/13/21 13:08) Chest 1 View Ap/Pa Only (05/13/21 13:08) Ekg Tracing (05/13/21 13:08) Comprehensive Metabolic Panel (05/13/21 13:08) Protime With Inr (05/13/21 13:08) Partial Thromboplastin Time (05/13/21 13:08) O2 (05/13/21 13:08) Monitor-Rhythm Ecg Trace Only (05/13/21 13:08) Ed Iv/Invasive Line Start (05/13/21 13:08) Lipase (05/13/21 13:08) Troponin I Fs (05/13/21 13:08) Probnp Fs (05/13/21 13:08) Ns Iv 1000 Ml (Sodium Chloride 0.9%) (05/13/21 13:08) Diltiazem Injection (Cardizem Injection) (05/13/21 13:08) Enoxaparin Injection (Lovenox Injection) (05/13/21 13:08) Diltiazem Drip Pre-Mix (Cardizem Drip Pr (05/13/21 13:52) Ns Iv 1000 Ml (Sodium Chloride 0.9%) (05/13/21 14:24) Vital Signs/I&O 05/13/21 13:05 Temp 36.2 Pulse 146 Resp 16 B/P (MAP) 143/92 (109) Pulse Ox 96 O2 Delivery Room Air Blood Pressure Mean: 109 Progress Progress Note #1: Progress Note EKG and telemetry monitoring demonstrated atrial fibrillation with rapid ventricular response and heart rate at times up to the 1 5180 range. She will get a IV to establish access and check basic labs and electrolytes as well as coags. Chest x-ray to look for infiltrate or effusion or pathology to be cont ributing to her symptoms. Start IV fluids for hydration and give a 10 mg IV Cardizem bolus to try and see if that would help with her atrial fibrillation with rapid ventricular response Progress Note #2: Progress Note Labs are all stable without acute significant abnormality to account for her atrial fibrillation with rapid ventricular response. Negative troponin. Chest x-ray is clear without infiltrate or effusion. Her bolus of 10 mg of IV Cardizem did not resolve her rate. She was still in the 120s to 150s at times. Will start diltiazem as a drip at 5 mg/h and titrate by 5 mg/h every 15 minutes up to a maximum of 15 mg/h. She was given Lovenox at 1 mg per kilogram or 90 mg subcu. [address] Rodriges for the hospitalist service since the patient follows with Dr. Garcia. She will have the patient go to the ICU to titrate and monitor the Cardizem. She stated that she would talk to Dr. Arroyo herself about cardiology involvement. Initial ECG Impression Date: May 13, 2021 Initial ECG Impression Time: 12:55 Initial ECG Rate: 176 Initial ECG Rhythm: A Fib/Flutter Initial ECG Comparisson: No Previous ECG Available Comment Atrial fibrillation with rapid ventricular rates at 176 bpm. Borderline left axis deviation. QT interval 276 ms with a QTc interval 473 ms. There is no acute ST elevation. There is no prior tracing available for comparison. Diagnostic Imaging Diagonstic Imaging: Xray Plain Films/CT/US/NM/MRI: chest Comments [facility] [place], [place] NAME: ANDRES COSBY [facility] REC#: [id number] PT STATUS: REG ER : 1950 PHYSICIAN: RILEY JAMISON MD ADMIT DATE: 05/13/21/ER FS Signed Date of Exam:05/13/21 CHEST 1 VIEW AP/PA ONLY INDICATION: Cough, new onset atrial fibrillation Frontal chest obtained at 1:04 p.m. and compared to 10/29/2020. Heart is mildly enlarged. Mediastinal silhouette is unremarkable. There is no pneumothorax or pleural fluid or consolidation. IMPRESSION: No acute process in the chest. Heart is mildly enlarged. Dictated by: Dictated on workstation # [id number] Dict: 05/13/21 1324 Trans: 05/13/21 1432 CVB [id number] Interpreted by: KENYA AVILEZ MD Electronically signed by: KENYA AVILEZ MD 05/13/21 1432 Reviewed: Reviewed by Me Departure Communication (Admissions) Time/Spoke to Admitting Phy: 14:[address] Rodriges for the hospitalist service as patient follows with Dr. Garcia. She accepted the patient for admission to the ICU and will consult cardiology Impression Primary Impression: Atrial fibrillation with rapid ventricular response Disposition: 30 STILL A PATIENT Condition: Stable Admissions Decision to Admit Reason: Admit from ER (General) Decision to Admit/Date: May 13, 2021 Time/Decision to Admit Time: 14:17 Departure-Patient Inst. Referrals: DENA GARCIA MD (PCP/Family) Primary Care Physician RILEY JAMISON MD May 13, 2021 13:56
[2021-05-13] MEDS ORDERED: NS IV 1000 ML 1,000 ML ONE (14:24)
[2021-05-13] MEDS: NS IV 1000 ML 1,000 ML IV SCH ×2 (14:35→16:56)
[2021-05-13] MEDS ORDERED: NS IV 1000 ML 1,000 ML IV SCH (14:35)
[2021-05-13] MEDS ORDERED: RT-ALBUTEROL/IPRATROPIUM 3 ML (DUONEB) VIAL INH PRN (16:15)
[2021-05-13] MEDS: dilTIAZem DRIP PRE-MIX 125 ML IV SCH (16:55)
[2021-05-13] MEDS ORDERED: ENOXAPARIN 100 MG/1 ML (LOVENOX) SYR SC SCH (17:00)
[2021-05-13] MEDS ORDERED: ENOXAPARIN 80 MG/0.8 ML (LOVENOX) SYR SC SCH (17:00)
[2021-05-13 17:05] LABS: BILIRUBIN,URINE NEGATIVE (NEGATIVE); CLARITY,URINE CLEAR; COLOR,URINE YELLOW; GLUCOSE, URINE (UA) NEGATIVE (NEGATIVE); KETONES,URINE NEGATIVE (NEGATIVE); LEUKOCYTE ESTERASE ,URINE NEGATIVE (NEGATIVE); NITRITE,URINE NEGATIVE (NEGATIVE); PROTEIN,URINE TRACE (NEGATIVE)
[2021-05-13 17:12] LABS: BACTERIA,URINE NEGATIVE /HPF; RBC,URINE 0-2 /HPF; SQUAMOUS EPITHELIAL CELL,UR RARE /HPF
--- NOTE | 2021-05-13 17:43 | Consultation-Cardiology ---
HPI-Cardiology Cardiology Consultation: Date of Consultation 05/13/2021 Date of Admission 05/13/2021 Attending Physician Molly Rodriges MD Admitting Physician Sandy Glass MD Consulting Physician OSMEL BERNAL JR, MD HPI: Time Seen by a Provider: 17:37 Chief Complaint: Reason for consultation: Atrial fibrillation. I had the pleasure of seeing Kajal in the intensive care unit at [facility] in [place], [place] this evening. She has no previous history of atrial fibrillation. She does have a history of hypertension but denies a history of diabetes, coronary artery disease, heart failure, or previous stroke. Today she went for her usual 1 mile walk. After returning home she started feeling li ghtheaded and weak. She denies any palpitations. She may have felt slightly short of breath. She tried to relax and wait for this to pass but then alerted her who checked her blood pressure and pulse and noted that she had an irregular tachycardia. He then brought her to [place] emergency room for further evaluation. She was found to be in atrial fibrillation with a rapid ventricular rate. She was started on intravenous diltiazem and transferred to our hospital for further treatment and evaluation. She is now feeling somewhat better. She denies any syncope. She denies chest pain, dyspnea, paroxysmal nocturnal dyspnea, orthopnea, or lower extremity edema. Because of the atrial fibrillation, a cardiology consultation was requested. Certain portions of this document may have been dictated utilizing voice recognition technology. Inherent to this technology, typographical and grammatical errors may exist. As much as I am diligent to identify and correct these mistakes, some errors may remain in the document. Review of Systems-Cardiology Review of Systems Other comments Review of 10 organ systems is as per the history of present illness, otherwise negative. TMB-Sivmlu-Gsagmo Hx Patient Social History Marrital Status: 2nd Hand Smoke Exposure: No Have you traveled recently?: No Alcohol Use?: No Pt feels they are or have been: No Immunizations Up To Date Date of Pneumonia Vaccine: Nov 02, 2019 Date of Influenza Vaccine: May 03, 2020 Past Medical History PMH As described under Assessment. Family Medical History Family Medical History: The patient does not know of any family history of premature coronary artery disease. Allergies and Home Medications Allergies Coded Allergies: No Known Drug Allergies (Unverified , 10/29/20) Patient Home Medication List Home Medication List Reviewed: Yes Calcium Carbonate (Calcium) 500 Mg Tab.chew, 200 MG PO DAILY, (Reported) Entered as Reported by: REMBERTO SIFUENTES on 11/02/20 105 Celecoxib (Celecoxib) 200 Mg Capsule, 200 MG PO DAILY, (Reported) Entered as Reported by: REMBERTO SIFUENETS on 11/02/20 105 Cetirizine HCl (Zyrtec) 10 Mg Capsule, 10 MG PO HS, (Reported) Entered as Reported by: REMBERTO SIFUENTES on 11/02/20 105 Duloxetine HCl (Duloxetine HCl) 30 Mg Capsule.dr, 30 MG PO DAILY, (Reported) Entered as Reported by: REMBERTO SIFUENTES on 11/02/20 105 Famotidine (Pepcid) 20 Mg Tablet, 20 MG PO HS, (Reported) Entered as Reported by: REMBERTO SIFUENTES on 11/02/20 105 Hydrocodone/Acetaminophen (Hydrocodone-Acetamin 5-325 mg) 1 Each Tablet, 1-2 TAB PO Q4H PRN for PAIN-MODERATE (5-7) Prescribed by: BRAYAN LAMBERT on 12/27/20 0858 Levothyroxine Sodium (Synthroid) 50 Mcg Tablet, 50 MCG PO HS, (Reported) Entered as Reported by: REMBERTO SIFUENTES on 11/02/20 105 Lisinopril (Lisinopril) 10 Mg Tablet, 10 MG PO HS, (Reported) Entered as Reported by: REMBERTO SIFUENTES on 11/02/20 105 Magnesium Oxide (Magnesium) 250 Mg Tablet, 250 MG PO DAILY, (Reported) Entered as Reported by: REMBERTO SIFUENTES on 11/02/20 105 Metoclopramide HCl (Metoclopramide HCl) 10 Mg Tablet, 10 MG PO BIDAC, (Reported) Entered as Reported by: REMBERTO SIFUENTES on 11/02/20 105 Pantoprazole Sodium (Protonix) 40 Mg Tablet.dr, 40 MG PO DAILY, (Reported) Entered as Reported by: REMBERTO SIFUENTES on 11/02/20 105 Potassium Gluconate (Potassium) 99 Mg Tablet, 99 MG PO DAILY, (Reported) Entered as Reported by: REMBERTO SIFUENTES on 11/02/20 105 Sucralfate (Carafate) 1 Gm Tablet, 1 GM PO HS, (Reported) Entered as Reported by: REMBERTOCHARO SIFUENTES on 11/02/20 1058 Zolpidem Tartrate (Ambien) 10 Mg Tablet, 10 MG PO HS, (Reported) Entered as Reported by: REMBERTO Menchaca MARIA on 11/02/20 1058 Exam Vital Signs Vital Signs Date Time Temp Pulse Resp B/P (MAP) Pulse Ox O2 Delivery O2 Flow Rate FiO2 05/13/21 17:07 36.2 142 97 05/13/21 16:00 16 140/101 (114) Room Air Physical Exam General: Alert. No acute distress. Well nourished and appears stated age. She is obese. Eye: Extraocular movements are intact. Conjunctivae are clear. There are no xanthelasma. HENT: Normocephalic. Atraumatic. Carotid pulsations 2/2 without bruits. Neck: Jugular venous pressure does not appear elevated. No thyromegaly appreciated. Respiratory: Lungs are clear to auscultation. Respirations are non-labored. Breath sounds are equal. Symmetrical chest wall expansion. Cardiovascular: Slight tachycardia with irregular rhythm. No murmur. No gallop. Point of maximal impulse is not appear displaced. Good pulses equal in all extremities. No edema. Gastrointestinal: Soft. Normal bowel sounds. Skin: Skin turgor is normal. There is no pallor. Musculoskeletal: No kyphosis or scoliosis appreciated. Neurologic: Alert and oriented to person, place, time. Cranial nerves 3-12 appear grossly intact. The patient has good motor tone strength in the upper and lower extremities bilaterally. Psychiatric: Cooperative. Appropriate mood & affect. Labs Laboratory Tests Test 05/13/21 13:05 05/13/21 16:35 Range/Units White Blood Count 10.8 4.3-11.0 10^3/uL Red Blood Count 4.93 3.80-5.11 10^6/uL Hemoglobin 11.7 11.5-16.0 g/dL Hematocrit 38 35-52 % Mean Corpuscular Volume 77 L 80-99 fL Mean Corpuscular Hemoglobin 24 L 25-34 pg Mean Corpuscular Hemoglobin Concent 31 L 32-36 g/dL Red Cell Distribution Width 16.0 H 10.0-14.5 % Platelet Count 450 H 130-400 10^3/uL Mean Platelet Volume 10.7 9.0-12.2 fL Immature Granulocyte % (Auto) 1 % Neutrophils (%) (Auto) 66 42-75 % Lymphocytes (%) (Auto) 18 12-44 % Monocytes (%) (Auto) 11 0-12 % Eosinophils (%) (Auto) 4 0-10 % Basophils (%) (Auto) 1 0-10 % Neutrophils # (Auto) 7.2 1.8-7.8 X 10^3 Lymphocytes # (Auto) 1.9 1.0-4.0 X 10^3 Monocytes # (Auto) 1.1 H 0.0-1.0 X 10^3 Eosinophils # (Auto) 0.4 H 0.0-0.3 10^3/uL Basophils # (Auto) 0.1 0.0-0.1 10^3/uL Immature Granulocyte # (Auto) 0.1 0.0-0.1 10^3/uL Prothrombin Time 13.0 12.2-14.7 SEC INR Comment 0.9 0.8-1.4 Activated Partial Thromboplast Time 28 24-35 SEC Sodium Level 139 135-145 MMOL/L Potassium Level 3.9 3.6-5.0 MMOL/L Chloride Level 102 98-107 MMOL/L Carbon Dioxide Level 23 21-32 MMOL/L Anion Gap 14 5-14 MMOL/L Blood Urea Nitrogen 16 7-18 MG/DL Creatinine 0.96 0.60-1.30 MG/DL Estimat Glomerular Filtration Rate 57 BUN/Creatinine Ratio 17 Glucose Level 126 H 70-105 MG/DL Calcium Level 9.6 8.5-10.1 MG/DL Corrected Calcium 9.4 8.5-10.1 MG/DL Magnesium Level 1.9 1.6-2.4 MG/DL Total Bilirubin 0.3 0.1-1.0 MG/DL Aspartate Amino Transf (AST/SGOT) 17 5-34 U/L Alanine Aminotransferase (ALT/SGPT) 11 0-55 U/L Alkaline Phosphatase 75 40-136 U/L Troponin I < 0.30 <0.30 NG/ML Pro-B-Type Natriuretic Peptide 549.6 H <75.0 PG/ML Total Protein 8.1 6.4-8.2 GM/DL Albumin 4.2 3.2-4.5 GM/DL Lipase 26 8-78 U/L Urine Color YELLOW Urine Clarity CLEAR Urine pH 7.0 5-9 Urine Specific Holden 1.020 1.016-1.022 Urine Protein TRACE H NEGATIVE Urine Glucose (UA) NEGATIVE NEGATIVE Urine Ketones NEGATIVE NEGATIVE Urine Nitrite NEGATIVE NEGATIVE Urine Bilirubin NEGATIVE NEGATIVE Urine Urobilinogen 0.2 < = 1.0 MG/DL Urine Leukocyte Esterase NEGATIVE NEGATIVE Urine RBC (Auto) 1+ H NEGATIVE Urine RBC 0-2 /HPF Urine WBC NONE /HPF Urine Squamous Epithelial Cells RARE /HPF Urine Crystals NONE /LPF Urine Bacteria NEGATIVE /HPF Urine Casts NONE /LPF Urine Mucus NEGATIVE /LPF Urine Culture Indicated NO ECG Impression ECG Comment Atrial fibrillation with a rapid ventricular rate at 176 bpm with borderline left axis deviation at -[address] changes. Diagnosis/Problems Diagnosis/Problems (1) Paroxysmal atrial fibrillation Assessment & Plan: She appears to have new onset atrial fibrillation. From her description, I suspect this may have started today. However, since she does not have palpitations I cannot be 100% confident that the atrial fibrillation started today. Her heart rates are improving with intravenous diltiazem. Her [id number] score is 3. I will change her enoxaparin over to rivaroxaban for stroke prophylaxis. I will start her on oral diltiazem. If we can get her heart rates controlled on the diltiazem and she does not convert to sinus rhythm, then I would consider discharging her to home tomorrow. If she does not convert to sinus rhythm overnight and she still has tachycardia, then we may need to consider transesophageal echocardiogram and cardioversion prior to discharge. Unfortunately, I do not perform transesophageal echocardiograms in both my partners who do this procedure are out of town. One of them will be ret urning on Thursday. I will plan on a transthoracic echocardiogram tomorrow. I will also check a TSH level. (2) Primary hypertension Assessment & Plan: I will start her on oral diltiazem for the atrial fibrilla tion and hypertension. For the time being, I would hold off on restarting her lisinopril so that we will have more blood pressure to work with to increase the diltiazem if needed. (3) Acquired hypothyroidism Assessment & Plan: Unclear whether or not this may have contributed to the atrial fibrillation. I will obtain TSH level in the morning. (4) Obesity Assessment & Plan: She had a previous lap band procedure which was later reversed. She has recently gained weight. She needs to again work on weight loss. There is good data that shows 20 pounds weight loss will help reduce risk of recurrent atrial fibrillation. OSMEL BERNAL JR, MD May 13, 2021 17:43
[2021-05-13] MEDS ORDERED: RIVAROXABAN 20 MG TABLET (XARELTO) PO ONE (17:45)
[2021-05-13] MEDS ORDERED: FLU QUAD HIGH DOSE 240 MCG/0.7 ML 2021-22 (FLUZONE) IM ONE (18:45)
[2021-05-13] MEDS ORDERED: PREVAGEN PO (18:54)
[2021-05-13] MEDS ORDERED: MELA3CAP2 PO (18:54)
[2021-05-13] MEDS ORDERED: OMEP40CA6 PO (18:54)
[2021-05-13] MEDS ORDERED: DIPH25CA79 PO (18:54)
[2021-05-13] MEDS ORDERED: MTC10T PO (18:54)
--- NOTE | 2021-05-13 18:56 | Pulmonary Progress Note ---
SUKH VAZQUEZ MED STUDENT 05/13/216: Subjective Date Seen by a Provider: May 13, 2021 Time Seen by a Provider: 17:00 Subjective/Events-last exam Pt presents with her to ICU for Afib w/ RVR. She was seen in [place] ER after she felt palpitations/chest pain/lightheaded/nauseous/SOB during a walk this morning. She has no history of similar events. She received a bolus of Cardizem at [place] without successful conversion, so she was transferred here to be placed on a Cardizem drip. On arrival she felt better without complaints of chest pain/SOB/palpitations. Review of Systems General: No Chills, No Fatigue HEENT: No Head Aches, No Visual Changes, No Eye Pain Pulmonary: Dyspnea; No Cough Cardiovascular: Chest Pain, Palpitations, Lt Headedness; No: Edema Gastrointestinal: Nausea; No: Vomiting, Abdominal Pain, Diarrhea, Constipation Genitourinary: No Dysuria, No Incontinence, No Hematuria Musculoskeletal: No: neck pain, shoulder pain, arm pain, back pain Neurological: No: Weakness, Numbness Sepsis Event Evaluation Sepsis Stage: Ruled Out Reason for ruling out sepsis: 1/4 SIRS, no suspicion of infection Height, Weight, BMI Height: '" Weight: lbs. oz. kg; 32.33 BMI Method: Focused Exam Sepsis Stage: Ruled Out Reason for ruling out sepsis: 1/4 SIRS(HR), no suspicion of infection Time of Focused Exam: 17:00 Respiratory: Chest Non Tender, Lungs Clear, Normal Breath Sounds, No Accessory Muscle Use, No Respiratory Distress Cardiovascular: No Edema, No Gallop, No JVD, No Murmur, Normal Peripheral Pulses, Irregularly Irregular, Tachycardia (110-120) Capillary Refill: Less Than 3 Seconds Peripheral Pulses: 2+ Dorsalis Pedis (R), 2+ Left Dors-Pedis (L), 2+ Radial Pulses (R), 2+ Radial Pulses (L) Skin: normal color, warm/dry Exam Exam Patient acknowledged, consented, and participated in this virtual visit which was conducted using real time audio/video Vital Signs Date Time Temp Pulse Resp B/P (MAP) Pulse Ox O2 Delivery O2 Flow Rate FiO2 05/13/21 18:00 93 28 108/96 (100) 95 Room Air 05/13/21 17:07 36.2 142 97 05/13/21 17:00 107 13 110/84 (93) 98 Room Air 05/13/21 16:09 36.2 142 97 05/13/21 16:00 122 16 140/101 (114) 98 Room Air 05/13/21 15:50 Room Air 05/13/21 15:44 158 05/13/21 14:45 36.2 142 16 145/95 97 Room Air 05/13/21 13:05 36.2 146 16 143/92 (109) 96 Room Air Height & Weight Height: '" Weight: lbs. oz. kg; 32.33 BMI Method: General Appearance: No Apparent Distress, WD/WN HEENT: PERRL/EOMI, Normal ENT Inspection, Pharynx Normal Neck: Full Range of Motion, Normal Inspection, Non Tender, Supple Respiratory: Chest Non Tender, Lungs Clear, Normal Breath Sounds, No Accessory Muscle Use, No Respiratory Distress Cardiovascular: No Edema, No JVD, No Murmur, Normal Peripheral Pulses, Irregularly Irregular, Tachycardia Capillary Refill: Less Than 3 Seconds Peripheral Pulses: 2+ Dorsalis Pedis (R), 2+ Left Dors-Pedis (L), 2+ Radial Pulses (R), 2+ Radial Pulses (L) Gastrointestinal: normal bowel sounds, non tender, soft Extremity: Normal Capillary Refill, Normal Inspection, No Calf Tenderness, No Pedal Edema Neurologic/Psychiatric: Alert, Oriented x3, No Motor/Sensory Deficits, Normal Mood/Affect Skin: Normal Color, Warm/Dry Lymphatic: No Adenopathy Results Lab Laboratory Tests 05/13/21 13:05 Assessment/Plan Assessment/Plan Afib w/ RVR Cardiology following; continue Cardizem drip with plan for d/c if she converts. TTE tomorrow. Lisinopril held. Enoxaparin changed to Rivaroxaban for stroke prophylaxis. HTN Hold Lisinopril, Cardizem for BP/HR GERD Hypothyroidism Continue home regimen GERALDINE SCHUSTER DO 05/14/21 0610: Supervisory-Addendum Brief Verification & Attestation Participated in pt care: history, MDM, physical Personally performed: exam, history, MDM, supervision of care Care discussed with: Medical Student Procedures: n/a Results interpretation: Verified all documentation Verification and Attestation of Medical Student E/M Service A medical student performed and documented this service in my presence. I reviewed and verified all information documented by the medical student and made modifications to such information, when appropriate. I personally performed the physical exam and medical decision making. Geraldine Schuster, May 14, 2021,06:10 SUKH VAZQUEZ MED STUDENT May 13, 2021 18:56 GERALDINE SCHUSTER DO May 14, 2021 06:10
[2021-05-13] MEDS ORDERED: ZOLPIDEM 5 MG (AMBIEN) TAB PO SCH (22:00)
[2021-05-14] VITALS (24 sets, daily range): BP systolic 97–143; BP diastolic 67–95
[2021-05-14] MEDS: dilTIAZem DRIP PRE-MIX 125 ML IV SCH (00:11)
[2021-05-14] MEDS ORDERED: ENOXAPARIN 100 MG/1 ML (LOVENOX) SYR SC SCH (01:00)
[2021-05-14] MEDS: NS IV 1000 ML 1,000 ML IV SCH (02:21)
[2021-05-14 04:57] LABS: BASOPHILS # (AUTO) 0.1 10^3/uL (0.0-0.1); BASOPHILS % (AUTO) 1 % (0-10); EOSINOPHILS # (AUTO) 0.4 10^3/uL (0.0-0.3); EOSINOPHILS % (AUTO) 4 % (0-10); HEMATOCRIT 35 % (35-52); HEMOGLOBIN 10.5 g/dL (11.5-16.0); LYMPHOCYTES # (AUTO) 1.9 10^3/uL (1.0-4.0); LYMPHOCYTES % (AUTO) 22 % (12-44); MEAN CORPUSCULAR HEMOGLOBIN 24 pg (25-34); MEAN CORPUSCULAR HGB CONC 30 g/dL (32-36); MEAN CORPUSCULAR VOLUME 77 fL (80-99); MONOCYTES # (AUTO) 0.7 10^3/uL (0.0-1.0); MONOCYTES % (AUTO) 9 % (0-12); NEUTROPHILS # (AUTO) 5.5 10^3/uL (1.8-7.8); NEUTROPHILS % (AUTO) 64 % (42-75); PLATELET COUNT 419 10^3/uL (130-400); WHITE BLOOD COUNT 8.6 10^3/uL (4.3-11.0)
[2021-05-14 05:16] LABS: POTASSIUM 3.5 MMOL/L (3.6-5.0)
[2021-05-14 05:17] LABS: CALCIUM 8.9 MG/DL (8.5-10.1)
[2021-05-14 05:21] LABS: PHOSPHORUS 2.7 MG/DL (2.3-4.7)
[2021-05-14 05:22] LABS: CREATININE SERUM 0.74 MG/DL (0.60-1.30)
[2021-05-14 05:24] LABS: MAGNESIUM 1.4 MG/DL (1.6-2.4)
[2021-05-14] MEDS: MAGNESIUM 1 GM/100 ML IVPB 100 ML IV SCH ×2 (06:29→06:30)
[2021-05-14] MEDS ORDERED: LEVOTHYROXINE 50 MCG (LEVOTHROID) TAB PO SCH (06:30)
[2021-05-14] MEDS ORDERED: KCL 20 MEQ TAB (K-DUR) PO ONE (08:00)
[2021-05-14] MEDS ORDERED: PANTOPRAZOLE 40 MG (PROTONIX) TAB PO SCH (09:00)
[2021-05-14] MEDS ORDERED: DULoxetine 30 MG (CYMBALTA) CAP PO SCH (09:00)
--- NOTE | 2021-05-14 09:32 | History & Physical-Hospitalist ---
History of Present Illness HPI/Chief Complaint Pt is a 71-year-old female with past medical history of hypothyroidism, hypertension, LAP-BAND and secondary reversal who presented to the emergency department due to palpitations. She states she goes for a walk of roughly 1 mile every day and normally has no problems with this but yesterday became short of breath and had palpitations following this. She attempted to rest without improvement so alerted her . When he checked her heart rate he noticed her to be quite tachycardic in the 140s and 150s and brought her to the emergency department for evaluation. In the emergency room EKG revealed A. fib with RVR. She was given a diltiazem bolus without much improvement and thus was started on a Cardizem drip. Last night she converted to sinus rhythm and has been doing well since. She denies any further chest pain palpitations shortness of breath nausea vomiting fever cough. Source: patient Date Seen 05/14/21 Time Seen by a Provider: 09:26 Attending Physician Rebeca Rodriges MD PCP Sandy Glass MD Referring Physician Date of Admission May 13, 2021 at 15:25 Home Medications & Allergies Home Medications Reviewed patient Home Medication Reconciliation performed by pharmacy medication reconciliations fire control technician and/or nursing. Patients Allergies have been reviewed. Allergies Allergies Coded Allergies No Known Drug Allergies (Unverified10/29/20) Past Yguzsdo-Hsxdmo-Uldzzg Hx Patient Social History Marrital Status: Tobacco Use?: No Use of E-Cig and/or Vaping dev: No Substance use?: No Alcohol Use?: No Pt feels they are or have been: No Immunizations Up To Date Date of Influenza Vaccine: May 03, 2020 First/Initial COVID19 Vaccinat: SEPTEMBER 2020 Second COVID19 Vaccination Ra: OCTOBER 2020 Date of Pneumonia Vaccine: Nov 02, 2019 Seasonal Allergies Seasonal Allergies: No Current Status Advance Directives: No Primary Language: Niuean Preferred Spoken Language: Niuean Past Medical History Surgeries: Gallbladder Currently Using CPAP: No Currently Using BIPAP: No Atrial Fibrillation, Hypertension Kidney Stones Gastroesophageal Reflux Hypothyroidsim Blood Disorders: Yes (B 12 deficiency ) Family Medical History Reviewed Nursing Family Hx Heart Disease Review of Systems Constitutional: No chills, No fever EENTM: no symptoms reported, nose congestion Respiratory: see HPI Cardiovascular: see HPI Gastrointestinal: No abdominal pain, No constipation, No diarrhea Genitourinary: no symptoms reported Musculoskeletal: no symptoms reported Skin: no symptoms reported Psychiatric/Neurological: No Symptoms Reported Physical Exam Physical Exam Vital Signs Vital Signs - First Documented 05/13/21 13:05 Temp 36.2 Pulse 146 Resp 16 B/P (MAP) 143/92 (109) Pulse Ox 96 O2 Delivery Room Air Capillary Refill : Less Than 3 Seconds Height, Weight, BMI Height: '" Weight: lbs. oz. kg; 32.33 BMI Method: General Appearance: No Apparent Distress, WD/WN HEENT: PERRL/EOMI, Moist Mucous Membranes Neck: Normal Inspection, Supple Respiratory: Lungs Clear, No Accessory Muscle Use, No Respiratory Distress Cardiovascular: Regular Rate, Rhythm, No JVD, No Murmur Gastrointestinal: Normal Bowel Sounds, Non Tender, Soft Extremity: Normal Capillary Refill, No Calf Tenderness, No Pedal Edema Neurologic/Psychiatric: Alert, Oriented x3, Normal Mood/Affect Skin: Normal Color, Warm/Dry Results Results/Procedures Labs Laboratory Tests 05/13/21 13:05 05/14/21 04:10 Patient resulted labs reviewed. Imaging: Reviewed Imaging Report Imaging [facility] [place], [place] NAME: ANDRES COSBY [facility] REC#: [id number] PT STATUS: REG ER : 1950 PHYSICIAN: RILEY JAMISON MD ADMIT DATE: 05/13/21/ER FS Signed Date of Exam:05/13/21 CHEST 1 VIEW AP/PA ONLY INDICATION: Cough, new onset atrial fibrillation Frontal chest obtained at 1:04 p.m. and compared to 10/29/2020. Heart is mildly enlarged. Mediastinal silhouette is unremarkable. There is no pneumothorax or pleural fluid or consolidation. IMPRESSION: No acute process in the chest. Heart is mildly enlarged. Dictated by: Dictated on workstation # [id number] Dict: 05/13/21 1324 Trans: 05/13/21 1432 CV [id number] Interpreted by: KENYA AVILEZ MD Electronically signed by: KENYA AVILEZ MD 05/13/21 1433 Assessment/Plan Admission Diagnosis A-fib RVR Admission Status: Observation Assessment and Plan a-fib with RVR new onset Converted to sinus rhythm overnight Continue oral diltiazem Xarelto for stroke ppx- anticoagulation education given Echo techs at bedside to do echo Cardiology consulted, appreciate recs Plan to DC home today Clinical Quality Measures AMI/AHF: ASA po Prior to arrival: REBECA Santiago MD May 14, 2021 09:32
--- NOTE | 2021-05-14 09:46 | Discharge Inst-Simple/Standard ---
Discharge Inst-Standard Patient Instructions/Follow Up Plan of Care/Instructions/FU: Please continue to take your medications as written. Please follow up with your primary care doctor to follow up this hospital stay. Activity as Tolerated: Yes Discharge Diet: No Restrictions Return to The Hospital For: Chest pain, heart racing, shortness of breath, if you feel you are getting worse. REBECA GUZMAN MD May 14, 2021 09:46
[2021-05-14] MEDS ORDERED: DILT180C85 PO ×2 (09:47→10:02)
[2021-05-14] MEDS ORDERED: RIVA20TA2 PO ×2 (09:47→10:03)
--- NOTE | 2021-05-14 12:42 | Cardiology Progress Note ---
Progress Note-Cardiology Events since last exam Date Seen by Provider: May 14, 2021 Time Seen by Provider: 12:41 Events since last exam I am seeing her due to atrial fibrillation. Last evening she converted to sinus rhythm. This morning the intravenous diltiazem was discontinued. The uneasy feeling she had yesterday when she was in atrial fibrillation has resolved. However, she did not have any palpitations, lightheadedness, chest pain or dyspnea when she was in atrial fibrillation. Today she denies chest discomfort, dyspnea, palpitations, syncope, or ankle edema. Certain portions of this document may have been dictated utilizing voice recognition technology. Inherent to this technology, typographical and grammatical errors may exist. As much as I am diligent to identify and correct these mistakes, some errors may remain in the document. Vitals Last set of Vitals Signs Vital Signs 05/14/21 05/14/21 05/14/21 10:39 11:00 12:02 Temp 36.6 Pulse 80 Resp 9 B/P (MAP) 106/95 (99) Pulse Ox 97 O2 Delivery Room Air Labs Labs Laboratory Tests 05/14/21 04:10 Exam Vital Signs Vital Signs Date Time Temp Pulse Resp B/P (MAP) Pulse Ox O2 Delivery O2 Flow Rate FiO2 05/14/21 12:02 Room Air 05/14/21 12:00 05/14/21 11:00 80 9 97 05/14/21 10:39 36.6 Physical Exam General: Alert. No acute distress. She is obese. Eye: No xanthelasma. HENT: Normocephalic. Neck: Jugular venous pressure does not appear elevated. Respiratory: Lungs are clear to auscultation. Respirations are non-labored. Breath sounds are equal. Symmetrical chest wall expansion. Cardiovascular: Normal rate. Regular rhythm. No murmur. No gallop. No edema. Gastrointestinal: Soft. Normal bowel sounds. Skin: Warm. Dry. Neurologic: Alert and oriented to person, place, time. Cranial nerves 3-11 grossly intact. Psychiatric: Cooperative. Appropriate mood & affect. Labs Laboratory Tests Test 05/14/21 04:10 05/14/21 09:00 Range/Units White Blood Count 8.6 4.3-11.0 10^3/uL Red Blood Count 4.47 3.80-5.11 10^6/uL Hemoglobin 10.5 L 11.5-16.0 g/dL Hematocrit 35 35-52 % Mean Corpuscular Volume 77 L 80-99 fL Mean Corpuscular Hemoglobin 24 L 25-34 pg Mean Corpuscular Hemoglobin Concent 30 L 32-36 g/dL Red Cell Distribution Width 16.0 H 10.0-14.5 % Platelet Count 419 H 130-400 10^3/uL Mean Platelet Volume 11.0 9.0-12.2 fL Immature Granulocyte % (Auto) 0 % Neutrophils (%) (Auto) 64 42-75 % Lymphocytes (%) (Auto) 22 12-44 % Monocytes (%) (Auto) 9 0-12 % Eosinophils (%) (Auto) 4 0-10 % Basophils (%) (Auto) 1 0-10 % Neutrophils # (Auto) 5.5 1.8-7.8 10^3/uL Lymphocytes # (Auto) 1.9 1.0-4.0 10^3/uL Monocytes # (Auto) 0.7 0.0-1.0 10^3/uL Eosinophils # (Auto) 0.4 H 0.0-0.3 10^3/uL Basophils # (Auto) 0.1 0.0-0.1 10^3/uL Immature Granulocyte # (Auto) 0.0 0.0-0.1 10^3/uL Sodium Level 138 135-145 MMOL/L Potassium Level 3.5 L 3.6-5.0 MMOL/L Chloride Level 107 98-107 MMOL/L Carbon Dioxide Level 20 L 21-32 MMOL/L Anion Gap 11 5-14 MMOL/L Blood Urea Nitrogen 10 7-18 MG/DL Creatinine 0.74 0.60-1.30 MG/DL Estimat Glomerular Filtration Rate 77 BUN/Creatinine Ratio 14 Glucose Level 93 70-105 MG/DL Calcium Level 8.9 8.5-10.1 MG/DL Phosphorus Level 2.7 2.3-4.7 MG/DL Magnesium Level 1.4 L 1.6-2.4 MG/DL Triglycerides Level 73 <150 MG/DL Cholesterol Level 155 < 200 MG/DL LDL Cholesterol Direct 99 1-129 MG/DL VLDL Cholesterol 15 5-40 MG/DL HDL Cholesterol 57 40-60 MG/DL Thyroid Stimulating Hormone (TSH) 2.18 0.35-4.94 UIU/ML SARS-CoV-2 RNA (RT-PCR) Not Detected Not Detecte Diagnosis/Problems Diagnosis/Problems (1) Paroxysmal atrial fibrillation Assessment & Plan: She appears to have new onset atrial fibrillation. From her description, I suspect this may have started on the day of admission. However, since she does not have palpitations I cannot be 100% confident that the atrial fibrillation started today. She converted to sinus rhythm on intravenous diltiazem overnight. I started her on oral diltiazem last evening. She already received a dose this morning. I started her on rivaroxaban for stroke prophylaxis yesterday. She does have biatrial dilatation which suggests that the atrial fibrillation may have been going on for longer than just yesterday. Nonetheless, since she is now and sinus rhythm, she can be discharged home on the oral diltiazem and rivaroxaban. We will get her scheduled to be seen in our office within the next couple of weeks. (2) Primary hypertension Assessment & Plan: I started her on long-acting diltiazem on the day of admission. I held off on restarting lisinopril which she was taking at home in the event that we need a higher dose of diltiazem. (3) Acquired hypothyroidism Assessment & Plan: Her TSH level was normal. As such, this condition was most likely not contributing to the atrial fibrillation. (4) Obesity Assessment & Plan: She had a previous lap band procedure which was later reve rsed. She has recently gained weight. She needs to again work on weight loss. There is good data that shows 20 pounds weight loss will help reduce risk of recurrent atrial fibrillation. OSMEL BERNAL JR, MD May 14, 2021 12:42
[2021-05-14] MEDS ORDERED: RIVAROXABAN 20 MG TABLET (XARELTO) PO SCH (17:00)
--- NOTE | 2021-05-16 12:54 | Physician Query-Final Dx ---
PAOLA WALTER 05/16/21 1254: Final Diagnosis Give Final Diagnosis Please give Final Diagnosis REBECA GUZMAN MD 05/16/21 1506: Final Diagnosis Give Final Diagnosis a fib with RVR PAOLA WALTER May 16, 2021 12:54 REBECA GUZMAN MD May 16, 2021 15:06
== END 2021-05-14 13:00 | disposition home or self-care (01) ==
LOC: EDUNIT# 12:53 → ER FS 12:54 → INTOOBSV 15:25 → ICU 15:25
PROVIDERS: ADMIT Family Medicine; ATTEND Family Medicine
DX: I48.20 Chronic atrial fibrillation, unspecified (principal); I48.0 Paroxysmal atrial fibrillation; E03.9 Hypothyroidism, unspecified; K21.9 Gastro-esophageal reflux disease without esophagitis; F32.A Depression, unspecified; E66.9 Obesity, unspecified; I11.9 Hypertensive heart disease without heart failure; Z68.32 Body mass index [BMI] 32.0-32.9, adult; Z79.1 Long term (current) use of non-steroidal anti-inflammatories (NSAID); Z79.899 Other long term (current) drug therapy; Z79.891 Long term (current) use of opiate analgesic; Z79.890 Hormone replacement therapy
CPT/HCPCS: 36415; 71045; 80048; 80053; 80061; 81000; 83690; 83735; 83880; 84100; 84443; 84484; 85025; 85610; 85730; 87081; 87636; 93005; 93041; 93306; 96372; 96374

== ENCOUNTER 2021-05-22 10:30 | Day surgery (SDC) | payer MEDICARE, OTHER ==
[~2021-05-22] VITALS: Ht 160 cm; Wt 83.0 kg
[~2021-05-22 10:30] MED LIST changes: +DILT180C85 PO; +DIPH25CA79 PO; +LIDOCAINE 1% INJ 20 ML 20 ML VIAL ONE; +MELA3CAP2 PO; +OMEP40CA6 PO; +PREVAGEN PO; +RIVA20TA2 PO
[2021-05-22 10:34] VITALS: BP 140/77
--- NOTE | 2021-05-22 11:10 | Implantation of Loop Monitor ---
Implant of Loop Monitior IMPLANTATION OF LOOP MONITOR REPORT DATE OF PROCEDURE: 05/22/21 PREOP DIAGNOSIS: Paroxysmal atrial fibrillation POSTOP DIAGNOSIS: Paroxysmal atrial fibrillation PROCEDURE DETAILS: The patient is a 71 female with history of paroxysmal atrial fibrillation requiring long-term surveillance. Therefore implantable loop recorder was discussed and agreed with the patient. Informed consent was taken. All risks and complications were discussed at length. The patient was draped and prepped in the usual sterile fashion. Local anesthesia was lidocaine, which was given in the substernal area close to the 4th intercostal space. Loop monitor [employer] with serial number [id number] was implanted according to the protocol. Steri- Strips were placed at the end of the procedure. There were no complications and the patient tolerated the procedure well. ANESTHESIA: Local anesthesia with lidocaine. COMPLICATIONS: None CONTRAST/FLUOROSCOPY: None CONCLUSION: Successful implantation of loop monitor with no complication FINAL DIAGNOSIS: Paroxysmal atrial fibrillation Palpitation EMIGDIO LORD MD May 22, 2021 11:09
[2021-05-22] MEDS ORDERED: LIDOCAINE 1% INJ 20 ML 20 ML VIAL INJ ONE (13:00)
== END 2021-05-22 11:30 ==
LOC: CATH 10:30
PROVIDERS: ATTEND Internal Medicine Cardiovascular Disease
DX: I48.0 Paroxysmal atrial fibrillation (principal); E03.9 Hypothyroidism, unspecified; E78.2 Mixed hyperlipidemia; K21.9 Gastro-esophageal reflux disease without esophagitis; R07.9 Chest pain, unspecified; I10 Essential (primary) hypertension; F32.9 Major depressive disorder, single episode, unspecified; Z79.890 Hormone replacement therapy; Z79.899 Other long term (current) drug therapy
CPT/HCPCS: 33285; C1764

== ENCOUNTER 2021-06-03 23:33 | Emergency (ER) | payer MEDICARE, OTHER ==
[~2021-06-03] VITALS: Ht 160 cm; Wt 87.4 kg
[~2021-06-03 23:33] MED LIST changes: -LIDOCAINE 1% INJ 20 ML 20 ML VIAL ONE
--- NOTE | 2021-06-03 23:49 | ED Cardiac General ---
History of Present Illness General Stated Complaint: SOB;AFIB;TACHY History of Present Illness Date Seen by Provider: Jun 03, 2021 Time Seen by Provider: 23:44 Initial Comments 71-year-old female presents with fast heart rate, some mild shortness of breath. She was recently diagnosed with A. fib and started on flecainide and Xarelto. Patient had a little bit of chest pain this morning but does not have any at this time. Her symptoms continued throughout the day and did not resolve by tonight so she came to the ER. Patient's not having any chest pain at this time. She denies any cough, fever, chills. She was recently tested negative f or Covid and has been fully vaccinated. Allergies and Home Medications Allergies Coded Allergies: No Known Drug Allergies (Unverified , 10/29/20) Patient Home Medication List Home Medication List Reviewed: Yes Calcium Carbonate (Calcium) 500 Mg Tab.chew, 200 MG PO DAILY, (Reported) Entered as Reported by: REMBERTO SIFUENTES on 11/02/20 1058 Celecoxib (Celecoxib) 200 Mg Capsule, 200 MG PO DAILY, (Reported) Entered as Reported by: REMBERTO ISFUENTES on 11/02/20 1058 Cetirizine HCl (Zyrtec) 10 Mg Capsule, 10 MG PO HS, (Reported) Entered as Reported by: REMBERTO SIFUENTES on 11/02/20 1058 Diltiazem HCl (Diltiazem 24Hr ER) 180 Mg Cap.er.24h, 180 MG PO DAILY Prescribed by: REBECA GUZMAN on 05/14/21 1002 Diphenhydramine HCl (Benadryl) 25 Mg Capsule, 25 MG PO HS Prescribed by: HUGO BOWEN on 05/13/21 1854 Duloxetine HCl (Duloxetine HCl) 30 Mg Capsule.dr, 30 MG PO DAILY, (Reported) Entered as Reported by: REMBERTO SIFUENTES on 11/02/20 1058 Levothyroxine Sodium (Synthroid) 50 Mcg Tablet, 50 MCG PO HS, (Reported) Entered as Reported by: REMBERTO SIFUENTES on 11/02/20 1058 Magnesium Oxide (Magnesium) 250 Mg Tablet, 250 MG PO DAILY, (Reported) Entered as Reported by: REMBERTO SIFUENTES on 11/02/20 1058 Melatonin (Melatonin) 3 Mg Capsule, 3 MG PO HS Prescribed by: HUGO BOWEN on 05/13/211853 Metoclopramide HCl (Metoclopramide HCl) 10 Mg Tablet, 10 MG PO HS Prescribed by: HUGO BOWEN on 05/13/211853 Omeprazole (Omeprazole) 40 Mg Capsule.dr, 40 MG PO HS Prescribed by: HUGO BOWEN on 05/13/211853 Pantoprazole Sodium (Protonix) 40 Mg Tablet.dr, 40 MG PO DAILY, (Reported) Entered as Reported by: REMBERTO SIFUENTES on 11/02/20 105 Potassium Gluconate (Potassium) 99 Mg Tablet, 99 MG PO DAILY, (Reported) Entered as Reported by: REMBERTO SIFUENTES on 11/02/20 105 Rivaroxaban (Xarelto Tablet) 20 Mg Tablet, 20 MG PO DAILY@1700 Prescribed by: REBECA GUZMAN on 05/14/21 100 Zolpidem Tartrate (Ambien) 10 Mg Tablet, 10 MG PO HS, (Reported) Entered as Reported by: REMBERTO SIFUENTES on 11/02/20 1058 [Prevagen] , 1 TAB PO DAILY Prescribed by: HUGO BOWEN on 05/13/211853 Review of Systems Review of Systems Constitutional: No chills, No fever; malaise Respiratory: Denies Cough; SOA With Exertion Cardiovascular: See HPI Gastrointestinal: Denies Abdominal Pain, Denies Nausea, Denies Vomiting Musculoskeletal: no symptoms reported Skin: no symptoms reported Psychiatric/Neurological: No Symptoms Reported Endocrine: No Symptoms Reported Past Zpoqcvd-Rbeypt-Ywigou Hx Immunizations Up To Date First/Initial COVID19 Vaccinat: SEPTEMBER 2020 Second COVID19 Vaccination Ra: OCTOBER 2020 Seasonal Allergies Seasonal Allergies: No Past Medical History Surgery/Hospitalization HX: Hypthyroidism, HTN, GERD, Depression. Surgeries: Yes (lap band; lithotripsy ) Gallbladder Respiratory: No Currently Using CPAP: No Currently Using BIPAP: No Cardiac: Yes Atrial Fibrillation, Hypertension Neurological: No Genitourinary: Yes Kidney Stones Gastrointestinal: Yes Gastroesophageal Reflux Musculoskeletal: No Endocrine: Yes Hypothyroidsim HEENT: No Cancer: No Psychosocial: No Integumentary: No Blood Disorders: Yes (B 12 deficiency ) Family Medical History Heart Disease Physical Exam Vital Signs Vital Signs - First Documented 06/03/21 23:38 Temp 36.7 Pulse 114 Resp 34 B/P (MAP) 148/106 (120) Pulse Ox 95 O2 Delivery Room Air Capillary Refill : Height, Weight, BMI Height: '" Weight: lbs. oz. kg; 32.42 BMI Method: General Appearance: No Apparent Distress, WD/WN Respiratory: No Accessory Muscle Use, No Respiratory Distress, Other (Mild tachypnea) Cardiovascular: Normal Peripheral Pulses, Tachycardia Extremity: Normal Capillary Refill, Normal Range of Motion, No Calf Tenderness Neurologic/Psychiatric: Alert, Oriented x3, No Motor/Sensory Deficits, Normal Mood/Affect, apple picker II-XII Norm as Tested Skin: Normal Color, Warm/Dry Focused Exam Lactate Level 06/03/21 23:57: Lactic Acid Level 0.61 Lactic Acid Level Laboratory Tests Test 06/03/21 23:57 Lactic Acid Level 0.61 MMOL/L (0.50-2.00) Progress/Results/Core Measures Results/Orders Lab Results Laboratory Tests Test 06/03/21 23:46 06/03/21 23:57 Range/Units White Blood Count 9.6 4.3-11.0 10^3/uL Red Blood Count 3.99 3.80-5.11 10^6/uL Hemoglobin 9.4 L 11.5-16.0 g/dL Hematocrit 31 L 35-52 % Mean Corpuscular Volume 77 L 80-99 fL Mean Corpuscular Hemoglobin 24 L 25-34 pg Mean Corpuscular Hemoglobin Concent 31 L 32-36 g/dL Red Cell Distribution Width 16.6 H 10.0-14.5 % Platelet Count 597 H 130-400 10^3/uL Mean Platelet Volume 9.6 9.0-12.2 fL Immature Granulocyte % (Auto) 1 % Neutrophils (%) (Auto) 66 42-75 % Lymphocytes (%) (Auto) 20 12-44 % Monocytes (%) (Auto) 11 0-12 % Eosinophils (%) (Auto) 3 0-10 % Basophils (%) (Auto) 1 0-10 % Neutrophils # (Auto) 6.3 1.8-7.8 X 10^3 Lymphocytes # (Auto) 1.9 1.0-4.0 X 10^3 Monocytes # (Auto) 1.0 0.0-1.0 X 10^3 Eosinophils # (Auto) 0.3 0.0-0.3 10^3/uL Basophils # (Auto) 0.1 0.0-0.1 10^3/uL Immature Granulocyte # (Auto) 0.1 0.0-0.1 10^3/uL D-Dimer 5.35 H 0.00-0.49 UG/ML Sodium Level 136 135-145 MMOL/L Potassium Level 3.8 3.6-5.0 MMOL/L Chloride Level 101 98-107 MMOL/L Carbon Dioxide Level 24 21-32 MMOL/L Anion Gap 11 5-14 MMOL/L Blood Urea Nitrogen 23 H 7-18 MG/DL Creatinine 0.90 0.60-1.30 MG/DL Estimat Glomerular Filtration Rate 62 BUN/Creatinine Ratio 26 Glucose Level 104 70-105 MG/DL Calcium Level 9.1 8.5-10.1 MG/DL Corrected Calcium 9.5 8.5-10.1 MG/DL Magnesium Level 1.7 1.6-2.4 MG/DL Total Bilirubin 0.2 0.1-1.0 MG/DL Aspartate Amino Transf (AST/SGOT) 14 5-34 U/L Alanine Aminotransferase (ALT/SGPT) 12 0-55 U/L Alkaline Phosphatase 88 40-136 U/L Troponin I < 0.30 <0.30 NG/ML Total Protein 7.6 6.4-8.2 GM/DL Albumin 3.5 3.2-4.5 GM/DL Lactic Acid Level 0.61 0.50-2.00 MMOL/L My Orders Orders - FOX,KYLE L DO Cbc With Automated Diff (06/03/21 23:53) Comprehensive Metabolic Panel (06/03/21 23:53) Fibrin Degradation Products (06/03/21 23:53) Lactic Acid Analyzer (06/03/21 23:53) Magnesium (06/03/21 23:53) Troponin I Fs (06/03/21 23:53) Chest 1 View Ap/Pa Only (06/03/21 23:53) Ct Angio Chest W (06/04/21 00:31) Iohexol Injection (Omnipaque 350 Mg/Ml 1 (06/04/21 00:45) Received Contrast (Hold Metformin- Contr (06/04/21 00:45) Ns (Ivpb) (Sodium Chloride 0.9% Ivpb Bag (06/04/21 00:45) Medications Given in ED Current Medications Medications Dose Ordered Sig/Dwight Route Start Time Stop Time Status Last Admin Dose Admin Iohexol 125 ml ONCE ONCE IV 06/04/21 00:45 06/04/21 00:46 DC 06/04/21 00:45 125 ML Sodium Chloride 100 ml ONCE ONCE IV 06/04/21 00:45 06/04/21 00:46 DC 06/04/21 00:45 100 ML Vital Signs/I&O 06/03/21 06/04/21 23:38 04:35 Temp 36.7 Pulse 114 101 Resp 34 24 B/P (MAP) 148/106 (120) 155/76 Pulse Ox 95 93 O2 Delivery Room Air Room Air Progress Progress Note : Progress Note Patient with large pericardial effusion measuring 3.3 cm. Patient is mildly tachypneic and tachycardic with slightly low oxygen level. Patient to be transferred to [facility] for further care since they have both cardiothoracic surgeon and cardiology for further management. Patient was accepted by Dr. Taylor Initial ECG Impression Date: Jun 04, 2021 Initial ECG Impression Time: 23:35 Initial ECG Rate: 114 Initial ECG Rhythm: S.Tach Initial ECG Intervals: Normal Initial ECG Impression: Normal Diagnostic Imaging Diagonstic Imaging: CT Comments large 3.3 cm pericardial effusion Reviewed: Reviewed [place] Study Departure Impression Primary Impression: Pericardial effusion, acute Disposition: XFER SHT-TRM HOSP Condition: Critical Transfer Transfer Reason: Exceeds level of care Time Spoke to Accepting Phy: 03:20 Transfer Progress Notes Patient with large pericardial effusion with need for cardiothoracic surgery. Patient accepted by Dr. Taylor. Transfer Facility: [facility] [place] Method of Transfer: EMS Departure-Patient Inst. Referrals: DENA GARCIA MD (PCP/Family) Primary Care Physician YKLE FOX DO Jun 03, 2021 23:49
[2021-06-04 00:13] LABS: BASOPHILS % (AUTO) 1 % (0-10); EOSINOPHILS % (AUTO) 3 % (0-10); HEMATOCRIT 31 % (35-52); HEMOGLOBIN 9.4 g/dL (11.5-16.0); LYMPHOCYTES % (AUTO) 20 % (12-44); MEAN CORPUSCULAR HEMOGLOBIN 24 pg (25-34); MEAN CORPUSCULAR HGB CONC 31 g/dL (32-36); MEAN CORPUSCULAR VOLUME 77 fL (80-99); MEAN PLATELET VOLUME 9.6 fL (9.0-12.2); MONOCYTES % (AUTO) 11 % (0-12); NEUTROPHILS % (AUTO) 66 % (42-75); PLATELET COUNT 597 10^3/uL (130-400); WHITE BLOOD COUNT 9.6 10^3/uL (4.3-11.0)
[2021-06-04 00:14] LABS: BASOPHILS # (AUTO) 0.1 10^3/uL (0.0-0.1); EOSINOPHILS # (AUTO) 0.3 10^3/uL (0.0-0.3); LYMPHOCYTES # (AUTO) 1.9 X 10^3 (1.0-4.0); NEUTROPHILS # (AUTO) 6.3 X 10^3 (1.8-7.8)
[2021-06-04 00:21] LABS: BUN/CREATININE RATIO 26; CALCIUM 9.1 MG/DL (8.5-10.1); CARBON DIOXIDE 24 MMOL/L (21-32); CHLORIDE 101 MMOL/L (98-107); GFR ESTIMATED 62; GLUCOSE 104 MG/DL (70-105); POTASSIUM 3.8 MMOL/L (3.6-5.0); SODIUM 136 MMOL/L (135-145)
[2021-06-04 00:22] LABS: ALANINE AMINOTRANSFERASE 12 U/L (0-55); ALBUMIN 3.5 GM/DL (3.2-4.5); ALKALINE PHOSPHATASE 88 U/L (40-136); BILIRUBIN,TOTAL 0.2 MG/DL (0.1-1.0); MAGNESIUM 1.7 MG/DL (1.6-2.4); TOTAL PROTEIN 7.6 GM/DL (6.4-8.2)
[2021-06-04] MEDS ORDERED: IOHEXOL 350 MG/ML 150 ML (OMNIPAQUE 350) VIAL IV ONE (00:45)
[2021-06-04] MEDS ORDERED: HOLD METFORMIN - RECEIVED CONTRAST 20 ML VIAL IV SCH (00:45)
[2021-06-04] MEDS ORDERED: NS 100 ML (IVPB) BAG IV ONE (00:45)
[2021-06-04 04:35] VITALS: BP 155/76
--- NOTE | 2021-06-04 06:48 | Diagnostic Imaging Report ---
PROCEDURE: CT angiography of the chest with contrast. TECHNIQUE: Multiple contiguous axial images were obtained through the chest after uneventful bolus administration of intravenous contrast. 3D reconstructed CTA MIP acquisitions were also performed. Auto Exposure Controls were utilized during the CT exam to meet ALARA standards for radiation dose reduction. DATE: June 04, 2021. COMPARISON: Chest radiograph June 03, 2021. INDICATION: 71-year-old female, shortness of breath. FINDINGS: There is no identified pulmonary nodule or lung mass. There is a trace right pleural effusion/pleural thickening. There is a small left pleural effusion with mild adjacent compressive atelectasis in the left lower lobe. There is no additional focal airspace consolidation. There is no pneumothorax. There is a large pericardial effusion. There is no identified pulmonary embolus. The main pulmonary artery diameter is within normal limits. There are atherosclerotic calcifications. There is no identified abnormally enlarged mediastinal, hilar, or axillary lymph node meeting CT size criteria for adenopathy. The patient is status post cholecystectomy. There is a small hiatal hernia. There is a small fat-containing anterior abdominal wall hernia. There are multilevel degenerative changes of the spine. There is a fat containing lesion anterior to the left scapula most consistent with lipoma in axial image 45 and adjacent sequential images. IMPRESSION: CT CHEST. 1. No identified pulmonary embolus. 2. Large pericardial effusion. 3. Small left pleural effusion and trace right pleural effusion. Agree with the provided preliminary report. Dictated by: Dictated on workstation # [id number]
--- NOTE | 2021-06-04 07:05 | Diagnostic Imaging Report ---
INDICATION: Shortness of air, tachycardia, chest discomfort. TECHNIQUE: Single view chest 11:57 AM. CORRELATION STUDY: 05/13/2021 FINDINGS: Cardiac enlargement, adversely changed. Presumed electronic device over the central superior heart. Vasculature slightly prominent. Probable small left pleural effusion. May be minimal atelectasis left lung base. No definitive consolidating infiltrate. IMPRESSION: 1. Rather prominent cardiac enlargement, appears changed from prior. Borderline vasculature. Nonspecific but could be attributed to perhaps developing cardiomyopathy versus pericardial effusion. 2. Trace left pleural effusion. Dictated by: Dictated on workstation # [id number]
== END 2021-06-04 04:35 | disposition short-term general hospital (02) ==
LOC: EDUNIT# 23:33 → ER FS 23:35
DX: I31.3 Pericardial effusion (noninflammatory) (principal); R00.0 Tachycardia, unspecified; I10 Essential (primary) hypertension; E03.9 Hypothyroidism, unspecified; I48.91 Unspecified atrial fibrillation; K21.9 Gastro-esophageal reflux disease without esophagitis; F32.9 Major depressive disorder, single episode, unspecified; Z79.890 Hormone replacement therapy; Z79.01 Long term (current) use of anticoagulants; Z79.899 Other long term (current) drug therapy
CPT/HCPCS: 36415; 71045; 71275; 80053; 83605; 83735; 84484; 85025; 85379; 93005

== ENCOUNTER → 2021-06-10 | Outpatient (CLI) | payer MEDICARE, OTHER | LOC: CARD 14:00 | PROVIDERS: ATTEND Internal Medicine Cardiovascular Disease | DX: I35.1 Nonrheumatic aortic (valve) insufficiency (principal); I51.7 Cardiomegaly; I31.3 Pericardial effusion (noninflammatory) | CPT/HCPCS: 93306 ==

== ENCOUNTER → 2021-06-18 | Outpatient (CLI) | payer MEDICARE, OTHER ==
[~2021-06-18] MED LIST changes: +CATHETER FLUSH 10 ML SYR IV PRN; +HOLD METFORMIN - RECEIVED CONTRAST 20 ML VIAL IV SCH; +IOHEXOL 350 MG/ML 100 ML (OMNIPAQUE 350) VIAL IV ONE; +NS 100 ML (IVPB) BAG IV ONE; -POTA99TA21 PO; +POTA99TA26 PO
--- NOTE | 2021-06-18 13:50 | Diagnostic Imaging Report ---
EXAMINATION: CT CHEST. TECHNIQUE: Multiple contiguous axial images were obtained through the chest with the use of intravenous contrast. All CT scans use one or more of the following dose optimizing techniques: automated exposure control, MA and/or KvP adjustment based on a patient size and exam type, or iterative reconstruction. INDICATION: Dyspnea, recent pericardial effusion drainage. COMPARISON: 06/04/2021. FINDINGS: Lungs and airway: No endoluminal nodule within the trachea. No pneumonia or edema. Left lower lobe subsegmental atelectasis is present. There is improved aeration of the left lung since the prior examination as the pleural effusion has diminished. Pleura: No pleural effusion or pneumothorax. Heart and mediastinum: A small pericardial effusion is present measuring 9 mm in thickness at the right ventricular base. There is no compression of the right heart to suggest cardiac tamponade. Additionally, no reflux of contrast material into the IVC. Normal caliber thoracic aorta. There are a few small mediastinal lymph nodes that are stable and likely reactive in nature. No supraclavicular or axillary lymphadenopathy has developed. A moderate-sized hiatal hernia is present. Upper abdomen: Cholecystectomy. No acute abnormality in the upper abdomen. Musculoskeletal: No worrisome focal osseous lesions. IMPRESSION: 1. Small residual pericardial effusion measuring 9 mm in maximal thickness. There are no imaging features to suggest cardiac tamponade. 2. No acute pulmonary pathology. 3. Moderate sized hiatal hernia. 4. The report was called to Dr. Glass by Dr. Lyon at 1:40 PM on 06/18/2021. Dictated by: Dictated on workstation # [id number]
== END ==
LOC: RAD FS 12:01
PROVIDERS: ATTEND Family Medicine
DX: I31.3 Pericardial effusion (noninflammatory) (principal); K44.9 Diaphragmatic hernia without obstruction or gangrene
CPT/HCPCS: 71260

== ENCOUNTER → 2021-06-19 | Outpatient (CLI) | payer MEDICARE, OTHER ==
[~2021-06-19] MED LIST changes: -CATHETER FLUSH 10 ML SYR IV PRN; -HOLD METFORMIN - RECEIVED CONTRAST 20 ML VIAL IV SCH; -IOHEXOL 350 MG/ML 100 ML (OMNIPAQUE 350) VIAL IV ONE; -NS 100 ML (IVPB) BAG IV ONE
[2021-06-19 11:31] VITALS: BP 111/61
--- NOTE | 2021-06-19 12:28 | Cardiology Stress Test Report ---
Stress Test Report Date of Procedure/Referring: Date of Procedure: Jun 19, 2021 PCP Emigdio Romero MD Admitting Physician Sandy Glass MD Indications: Dyspnea Baseline Heart Rate: 85 Baseline Blood Pressure: Blood Pressure Systolic: 111 Blood Pressure Diastolic: 61 Baseline EKG: Baseline EKG: NSR Summary/Conclusion: Summary: In summary, the patient started exercising with a baseline heart rate, blood pressure and EKG mentioned above Patient was able to exercise for a total of 3 minutes on Philip protocol, METs 4.6 Maximum heart rate 153 Maximum blood pressure 156/77 Oxygen saturation during test continue to be 98% Stress EKG, Minimal nondiagnostic changes Recovery EKG , Return to baseline Conclusion: 1. Faie exercise tolerance for a total of 3 minutes on Philip protocol, 4.6 METs, achieving 100 percent of maximum expected heart rate 2. Minimal nondiagnostic EKG changes with exercise returned to baseline during recovery 3. No arrhythmia was noted 4. Oxygen saturation was monitored throughout the test and patient continued to have oxygen saturation around 98% EMIGDIO ROMERO MD Jun 19, 2021 12:28
== END ==
LOC: CARD 09:30
PROVIDERS: ATTEND Internal Medicine Cardiovascular Disease
DX: I11.9 Hypertensive heart disease without heart failure (principal); I25.10 Atherosclerotic heart disease of native coronary artery without angina pectoris; I31.3 Pericardial effusion (noninflammatory); I35.1 Nonrheumatic aortic (valve) insufficiency
CPT/HCPCS: 93017; 93306

== ENCOUNTER 2021-06-28 10:29 | Outpatient (CLI) | payer MEDICARE, OTHER | END 2021-06-28 10:50 | LOC: SLEEP 10:29 | PROVIDERS: ATTEND Internal Medicine Cardiovascular Disease | DX: G47.33 Obstructive sleep apnea (adult) (pediatric) (principal) | CPT/HCPCS: G0399 ==

== ENCOUNTER → 2021-07-04 | Outpatient (CLI) | payer MEDICARE, OTHER | LOC: CARD 11:00 | PROVIDERS: ATTEND Physician Assistant | DX: I11.9 Hypertensive heart disease without heart failure (principal); I08.0 Rheumatic disorders of both mitral and aortic valves; I25.10 Atherosclerotic heart disease of native coronary artery without angina pectoris | CPT/HCPCS: 93306 ==

== ENCOUNTER → 2022-05-23 | Outpatient (CLI) | payer MEDICARE, OTHER ==
--- NOTE | 2022-05-23 18:45 | Diagnostic Imaging Report ---
INDICATION: Shortness of breath. EXAMINATION: Two view chest, 05/23/2022. COMPARISON: 06/03/2021. FINDINGS: 2 views of the chest. The heart is unremarkable. Pulmonary vasculature normal. Recorder device noted on the left. Lungs clear. No infiltrate, effusion or pneumothorax. IMPRESSION: No acute cardiopulmonary process. Dictated by: Dictated on workstation # [id number]
== END ==
LOC: RAD FS 14:09
PROVIDERS: ATTEND Internal Medicine Cardiovascular Disease
DX: R06.02 Shortness of breath (principal)
CPT/HCPCS: 71046

== ENCOUNTER → 2022-08-14 | Outpatient (CLI) | payer MEDICARE, OTHER ==
[~2022-08-14] VITALS: Ht 157 cm; Wt 104.0 kg
[~2022-08-14] MED LIST changes: +APIX5TAB PO; +ATOR10TA66 PO; +CARV6.25 PO; +FEXO1TAB43 PO; +FLEC50TA PO; +HYDR25TA4 PO; +IRON1TAB95 PO; +LOSA100T57 PO
== END | disposition home or self-care (01) ==
LOC: PREOP 05:30
PROVIDERS: ATTEND Surgery
DX: Z01.818 Encounter for other preprocedural examination (principal)

== ENCOUNTER 2022-08-21 11:30 | Inpatient (IN) | payer MEDICARE, OTHER ==
--- NOTE | 2022-08-14 07:44 | HISTORY AND PHYSICAL ---
ATTENDING PRIMARY CARE PHYSICIAN: Dr. Sandy Glass. HISTORY OF PRESENT ILLNESS: The patient is a 72-year-old female known to us. She has had a longstanding history of gastroesophageal reflux disease that progressed to substernal chest pressure and burning sensation. She had been on a multitude of different acid reducers including PPIs as well as H2 antagonist and Carafate and somewhat however, over time become less effective. She is status post laparoscopic adjustable gastric band placement over 20 years ago and states that she was able to lose 90 pounds at her best; however, did regain half of that weight back. Her symptoms of heartburn worsened and we proceeded with an EGD on 11/02/2020 and she was found to have reflux esophagitis [place] grade B, moderate size hiatal hernia, 4 cm in size, slightly enlarged gastric pouch as well as likely inferior band slippage however, no band erosion. Remainder of the stomach showed mild gastritis. Biopsies were negative for H. pylori as well as negative for Jones's esophagus. We continued to try medical management; however, the patient continued to have symptoms due to the band inferior slippage. On 12/27/2020, she underwent diagnostic laparoscopy and removal of the adjustable gastric band and the subcutaneous adjustment port. She did well after the surgery and attempted to proceed with medical management for weight maintenance and loss including continued high protein diet with lean meat protein sources as well as low carbohydrates, low sugar and high-fiber foods. She states that despite trying to do this, she continued to regain some of her weight back. She also tried exercise regimen including walking as well as stationary bike and was unable to lose any weight. The patient is now in our surgical weight loss program for the gastric sleeve resection and does meet the medical criteria for bariatric surgery. Her current weight is 224.6 pounds at 5 feet 3 inches and a body mass index of 39.78. Again, she has tried a number of diet and exercise regimens with no success. She has undergone the necessary evaluations and testing including nutrition and psychology evaluation as well as previous EGD. PAST MEDICAL HISTORY: Gastroesophageal reflux disease, hypertension, hypothyroid. PAST SURGICAL HISTORY: Laparoscopic cholecystectomy 2004, laparoscopic adjustable gastric band placement 1999, laparoscopic removal of adjustable gastric band 12/27/2020. ALLERGIES: NO KNOWN DRUG ALLERGIES. MEDICATIONS: Magnesium, potassium, duloxetine 30 mg daily, Protonix 40 mg daily, lisinopril 10 mg daily, Synthroid 50 mcg daily, Reglan 10 mg b.i.d., Zyrtec daily, Pepcid, sucralfate p.r.n. SOCIAL HISTORY: Negative smoke. Social alcohol. FAMILY HISTORY: Mother, history of stroke. VITAL SIGNS: Stable. Blood pressure 136/86, current weight 224.6 pounds at 5 feet 3 inches and a body mass index of 39.78. REVIEW OF SYSTEMS: This is a well-nourished female, currently in no acute distress. She is not experiencing shortness of breath or difficulty breathing. No chest pain, palpitations, diaphoresis. No nausea or vomiting. No hematemesis, no coffee-ground emesis. No diarrhea or constipation. No red blood per rectum or dark tarry stools. No fever or chills. No recent inadvertent weight loss. All other review of systems negative. PHYSICAL EXAMINATION: CHEST: Clear, good breath sounds bilaterally. HEART: Regular, no murmurs. EXTREMITIES: No lower extremity edema. Negative Homans sign. HEENT: No scleral icterus. No cervical lymphadenopathy. ABDOMEN: Soft, nontender, nondistended. No hernias. SKIN: Warm, dry. ASSESSMENT AND PLAN: A 72-year-old female with morbid obesity, medical comorbidities related to her obesity including gastroesophageal reflux disease and hypertension as well as a significant size hiatal hernia. She is in her surgical weight loss program for the gastric sleeve resection and she has undergone all the necessary tests and evaluations. We will now schedule her for the laparoscopic gastric sleeve resection as well as laparoscopic hiatal hernia repair. All information on her diet postprocedure as well as exercise regimens were also explained in depth to the patient. Job ID: [id number] DocumentID: [id number] Dictated Date: 08/07/2022 19:13:14 Corporate General Manager Date: 08/07/2022 19:50:00 Dictated By: CONNOR TOPETE MD
[2022-08-21] VITALS (11 sets, daily range): BP systolic 102–189; BP diastolic 69–112
[~2022-08-21] VITALS: Ht 154.9 cm; Wt 99.3 kg
--- OUTSIDE RECORDS SUMMARY | 2022-08-21 11:58 | XMS REPORT | Encounter Summary ---
Author Author [facility] Organization [facility] Address Unknown Phone Unavailable Care Team Providers Care Costume Draper Name Role Phone Sandy Glass MD PCP Reason for Visit * Reason Onset Date Comments Cardiac Clearance 08/08/2022 Encounter Details Care Team Description Date Type Department Kinsey Astudillo RN Cardiac Clearance 08/08/2022 Telephone Cardiology: [facility], [id number] [place] [address] [address] [place] [address] Social History Date Tobacco Use Types Packs/Day Years Used Smoking Tobacco: Never Smokeless Tobacco: Never Comments Alcohol Use Standard Drinks/Week Yes 0 (1 standard drink = 0.6 o z pure alcohol) Sex Assigned at Date Recorded Female 09/13/2021 8:59 AM CHANGE MANAGEMENT DIRECTOR Date Recorded COVID-19 Exposure Response 08/06/2022 10:22 AM CHANGE MANAGEMENT DIRECTOR In the last 10 days, have you been in contact with N o / Unsure someone who was confirmed or suspected to have Coronavirus/COVID-19? documented as of this encounter Miscellaneous Notes * Telephone Encounter - Kinsey Astudillo RN - 08/08/2022 1:59 PM CST 08/08/2022 2:00 PM Clearance letter faxed at this time to number below. ----- Message from Steve Joshi MD sent at 08/08/2022 1:42 PM CHANGE MANAGEMENT DIRECTOR ----- Can someone fax over the clearance letter I dictated on Ms. Carbone to Dr. Trent after is transcribed. The fax number is [phone]. SWB GE MANAGEMENT DIRECTOR documented in this encounter Plan of Treatment Not on filedocumented as of this encounter Visit Diagnoses Not on filedocumented in this encounter Additional Health Concerns Noted Time Assessment 08/06/2022 12:43 PM CHANGE MANAGEMENT DIRECTOR A fall risk assessment has been complet ed for the patient 08/06/2022 12:42 PM CHANGE MANAGEMENT DIRECTOR PHQ-2 Depression Total Score: 0 documented as of this encounter Care Teams Start Date End Date Costume Draper Relationship Specialty 07/10/21 Sandy Glass MD PCP - General [address] [address] documented as of this encounter
--- OUTSIDE RECORDS SUMMARY | 2022-08-21 11:58 | XMS REPORT | Encounter Summary ---
Author Author [facility] Organization [facility] Address Unknown Phone Unavailable Care Team Providers Care Baker Biscuit Name Role Phone Sandy Glass MD PCP Reason for Visit * Reason Onset Date Comments Test/procedure 08/07/2022 Encounter Details Care Team Description Date Type Department Lois Cook RN Test/procedure 08/07/2022 Telephone Cardiology: [facility], [address] [place] [address]. [address] [place] [address] Social History Date Tobacco Use Types Packs/Day Years Used Smoking Tobacco: Never Smokeless Tobacco: Never Comments Alcohol Use Standard Drinks/Week Yes 0 (1 standard drink = 0.6 o z pure alcohol) Sex Assigned at Date Recorded Female 09/13/2021 8:59 AM NETWORK SUPPORT TECHNICIAN Date Recorded COVID-19 Exposure Response 08/06/2022 10:22 AM NETWORK SUPPORT TECHNICIAN In the last 10 days, have you been in contact with N o / Unsure someone who was confirmed or suspected to have Coronavirus/COVID-19? documented as of this encounter Miscellaneous Notes * Telephone Encounter - Kristi Cook RN - 08/12/2022 7:57 AM NETWORK SUPPORT TECHNICIAN Images from the original note were not included. 08/12/2022 7:57 AM Pt active in Bio; sent [employer] with SWB recs below. Asked that pt let us know if she'd like stress test ordered, or to hold off on testing at this time. 08/12/2022 12:23 PM rec'd message below from pt's spouse requesting to hold off on further testing a t this time. Kajal Carbone Courtney, RN Thank you very much for the detailed response. The work up has been detailed a nd thorough so will hold off on further testing. Kajal is planning bariatric phong kely and we are hopeful this will significantly improve her exercise tolerance a nd SOB. Thanks again, Zac Carbone MD ORK SUPPORT TECHNICIAN * Telephone Encounter - Lois Cook RN - 08/08/2022 8:50 AM NETWORK SUPPORT TECHNICIAN LVMICB to discuss results of CXR and PFTs reviewed by SWB. ORK SUPPORT TECHNICIAN * Telephone Encounter - Lois Cook RN - 08/07/2022 1:26 PM NETWORK SUPPORT TECHNICIAN ----- Message from Steve Joshi MD sent at 08/07/2022 7:06 AM NETWORK SUPPORT TECHNICIAN ----- Can you let Dr. Tona Rdz know I reviewed her chest x-ray and pulmonary func tion studies. Her chest x-ray did not show any significant pulmonary abnormalities. There is no evidence of heart failure or pneumonia. Her PFTs are reassuring as well. There is no evidence of an obstructive defect. There was normal diffusion, suggesting the lungs were absorbing oxygen normall y. If Dr. Carbone would like the specifics, the FVC was 2.58 which was 101% of pred icted, the FEV1 was 1.94 which is 98% of predicted, the ratio was 75%. The resi dual volume was 1.98 which is 94% of predicted, the total lung capacity is 4.56 which was 97% of predicted. Her DLCO was 19.14 which was 99% of predicted. Overall I did not see a definite pulmonary abnormality as a cause of her shortne ss of breath. I think we have a couple options here. One option would be to continue to monit or and slowly increase exercise tolerance. Another option would be to do a cardiopulmonary stress test. This would calcula te her amount of oxygen used, as well as see if we see a more prominent pulmonar y or cardiac cause. We certainly do not have to do that at this point, we could just continue to monitor. Sometimes when its not clear the exact cause of the shortness of breath, this can lead you in one direction or the other. Otherwise I will plan to continue her current medical therapy. JESSE ----- Message ----- From: Steve Pritchett In Radiant Results Sent: 08/06/2022 1:14 PM NETWORK SUPPORT TECHNICIAN To: Steve Joshi MD ORK SUPPORT TECHNICIAN documented in this encounter Plan of Treatment Not on filedocumented as of this encounter Visit Diagnoses Not on filedocumented in this encounter Additional Health Concerns Noted Time Assessment 08/06/2022 12:43 PM NETWORK SUPPORT TECHNICIAN A fall risk assessment has been complet ed for the patient 08/06/2022 12:42 PM NETWORK SUPPORT TECHNICIAN PHQ-2 Depression Total Score: 0 documented as of this encounter Care Teams Start Date End Date Baker Biscuit Relationship Specialty 07/10/21 Sandy Glass MD PCP - [address] [address] documented as of this encounter
--- OUTSIDE RECORDS SUMMARY | 2022-08-21 11:58 | XMS REPORT | Encounter Summary ---
Author Author [facility] Organization [facility] Address Unknown Phone Unavailable Care Team Providers Care Central Supply Assistant Name Role Phone Sandy Glass MD PCP Encounter Details Care Team Description Date Type Department [facility] Nunez [facility] [address] [facility] [address] [place] [address] 08/06/2022 Hospital Pulmonary Function Lab: Encounter [facility] [address] [facility] [place] [address] Social History Date Tobacco Use Types Packs/Day Years Used Smoking Tobacco: Never Smokeless Tobacco: Never Comments Alcohol Use Standard Drinks/Week Yes 0 (1 standard drink = 0.6 o z pure alcohol) Sex Assigned at Date Recorded Female 09/13/2021 8:59 AM STAMP ANALYST Date Recorded COVID-19 Exposure Response 08/06/2022 10:22 AM STAMP ANALYST In the last 10 days, have you been in contact with N o / Unsure someone who was confirmed or suspected to have Coronavirus/COVID-19? documented as of this encounter Medications at Time of Discharge Start Date End Date Medication Sig Dispensed Refills 05/21/2022 atorvastatin (LIPITOR) 20 Take one 90 tablet 1 mg tabletIndications: tablet by Mixed hyperlipidemia mouth daily. CALCIUM CARBONATE PO Take 1 tablet 0 by mouth daily. 10/04/2021 carvediloL (COREG) 6.25 Take one 180 tablet 3 mg tabletIndications: tablet by Primary hypertension, mouth twice Atherosclerosis of [place] daily with coronary artery of [place] meals. Take heart without angina with food. pectoris 07/03/2021 celecoxib (CELEBREX) 200 Take 200 mg 0 mg capsule by mouth daily. cyanocobalamin (VITAMIN Take 500 mcg 0 B-12) 500 mcg tablet by mouth daily. diphenhydrAMINE hcl Take 25 mg by 0 (BENADRYL ALLERGY) 25 mg mouth every 6 tablet hours as needed. 08/28/2021 duloxetine (CYMBALTA) Take 30 mg by 0 30 mg capsule mouth daily. 07/07/2022 ELIQUIS 5 mg TAKE 1 TABLET 180 tablet 3 tabletIndications: PAF BY MOUTH (paroxysmal atrial TWICE DAILY fibrillation) (HCC), Atherosclerosis of [place] coronary artery of [place] heart without angina pectoris ferrous sulfate (FEOSOL) Take 325 mg 0 325 mg (65 mg iron) by mouth tablet daily. Take on an empty stomach at least 1 hour before or 2 hours after food. 08/28/2021 flecainide (TAMBOCOR) 50 Take 50 mg by 0 mg tablet mouth every 12 hours. 05/21/2022 hydroCHLOROthiazide Take one 90 tablet 2 (HYDRODIURIL) 25 mg tablet by tabletIndications: mouth every Primary hypertension morning. 02/27/2022 levothyroxine (SYNTHROID) Take 100 mcg 0 100 mcg tablet by mouth daily. loratadine (CLARITIN) 10 Take 10 mg by 0 mg tablet mouth every morning. 11/21/2021 losartan (COZAAR) 100 mg Take one 90 tablet 3 tabletIndications: tablet by Primary hypertension mouth daily. Magnesium 250 mg tab Take 1 tablet 0 by mouth daily. 09/01/2017 metoclopramide HCL Take 1 tablet 0 (REGLAN) 10 mg tablet by mouth at bedtime daily. 07/02/2022 omeprazole (PRILOSEC) TAKE 1 0 20 mg capsule CAPSULE BY MOUTH EVERY DAY DIRECTED Potassium 99 mg tab Take 1 tablet 0 by mouth daily. 07/03/2021 zolpidem (AMBIEN) 10 mg Take 10 mg by 0 tablet mouth daily. documented as of this encounter Discharge Disposition Code Departure Means Destination Disposition Home Home or Self Care documented in this encounter Plan of Treatment Not on filedocumented as of this encounter Procedures Comments Procedure Name Priority Date/Time Associated Diag nosis PF LAB COMPLETE PULM Routine 08/06/2022 Shortness of breath FUNCTION 10:45 AM STAMP ANALYST documented in this encounter Results * PF LAB COMPLETE PULM FUNCTION (08/06/2022 10:45 AM STAMP ANALYST) Pathologist Signature Component Value Ref Test Method Analysis Performed A t Range Time FVC-Pre 2.58 L [facility] FVC-%Pred-pre 101 % [facility] FEV1-Pre 1.94 L [facility] FEV1-%Pred-Pre 98 % [facility] FEV1/FVC-Pre 75 % [facility] [id number] 65 % [facility] [id number] 1.34 L/sec [facility] [id number]-%Pred-Pre 78 % [facility] RVPleth-Pre 1.98 L [facility] RVPleth-%Pred-Pre 94 % [facility] TLCPleth-Pre 4.56 L [facility] TLCPleth-%Pred-Pre 97 % [facility] DLCOunc-Pre 19.14 ml/min/m [facility] mHg DLCOunc-%Pred-Pre 99 % [facility] DLCOunc-#SD -0.038 ml/min/m [facility] mHg DLVA-Pred 4.37 ml/min/m [facility] mHg/L DLVA-Pre 4.22 ml/min/m [facility] mHg/L DLVA-%Pred-Pre 96 % [facility] DLVA-SD 0.80 ml/min/m [facility] mHg/L DLVA-LLN 2.77 ml/min/m [facility] mHg/L DLVA-ULN 5.97 ml/min/m [facility] mHg/L DLVA-#SD -0.184 ml/min/m [facility] mHg/L [id number] 72 % [facility] Anatomical Location / Laterality Collection Method / Volume Refugio ection Time Received Time Specimen (Source) 08/06/2022 10:45 AM STAMP ANALYST Joe Nunez MD PULMONARY FUNCTION ORDERABL ES City/State/ZIP Code Phone Number Performing [place] [address] [facility] [address] documented in this encounter Visit Diagnoses Diagnosis Shortness of breath documented in this encounter Additional Health Concerns Noted Time Assessment 08/06/2022 12:43 PM STAMP ANALYST A fall risk assessment has been complet ed for the patient 08/06/2022 12:42 PM STAMP ANALYST PHQ-2 Depression Total Score: 0 documented as of this encounter Care Teams Start Date End Date Central Supply Assistant Relationship Specialty 07/10/21 Sandy Glass MD PCP - [address] [address] documented as of this encounter
--- OUTSIDE RECORDS SUMMARY | 2022-08-21 11:58 | XMS REPORT | Encounter Summary ---
Author Author [facility] Organization [facility] Address Unknown Phone Unavailable Care Team Providers Care Mobile Lounge Driver Name Role Phone Sandy Glass MD PCP Encounter Details Care Team Description Date Type Department 08/06/2022 Travel Social History Date Tobacco Use Types Packs/Day Years Used Smoking Tobacco: Never Smokeless Tobacco: Never Comments Alcohol Use Standard Drinks/Week Yes 0 (1 standard drink = 0.6 o z pure alcohol) Sex Assigned at Date Recorded Female 09/13/2021 8:59 AM MILLWRIGHT INSTRUCTOR Date Recorded COVID-19 Exposure Response 08/06/2022 10:22 AM MILLWRIGHT INSTRUCTOR In the last 10 days, have you been in contact with N o / Unsure someone who was confirmed or suspected to have Coronavirus/COVID-19? documented as of this encounter Plan of Treatment Not on filedocumented as of this encounter Visit Diagnoses Not on filedocumented in this encounter Additional Health Concerns Noted Time Assessment 08/06/2022 12:43 PM MILLWRIGHT INSTRUCTOR A fall risk assessment has been complet ed for the patient 08/06/2022 12:42 PM MILLWRIGHT INSTRUCTOR PHQ-2 Depression Total Score: 0 documented as of this encounter Care Teams Start Date End Date Mobile Lounge Driver Relationship Specialty 07/10/21 Sandy Glass MD PCP - General [address] [phone] documented as of this encounter
--- OUTSIDE RECORDS SUMMARY | 2022-08-21 11:58 | XMS REPORT | Encounter Summary ---
Author Author [facility] Organization [facility] Address Unknown Phone Unavailable Care Team Providers Care Derrick Hand Name Role Phone Sandy Glass MD PCP Reason for Referral * Radiology Services (Routine) - Authorized Diagnoses / Procedures Referred By Contact Referred To Conta ct Specialty Diagnoses SOB (shortness of breath) Procedures [place] [address] [facility] [address] [place] [address] Radiology Referral ID Status Reason Start Date Expiration Visits Vi sits Date Requested Authorized [id number] Authorized 05/21/2022 05/21/2023 1 1 NG GUIDE Reason for Visit * Radiology Services (Routine) - Authorized Diagnoses / Procedures Referred By Contact Referred To Conta ct Specialty Diagnoses SOB (shortness of breath) Procedures [place] [address] [facility] [address] [place] [address] Radiology Referral ID Status Reason Start Date Expiration Visits Vi sits Date Requested Authorized [id number] Authorized 05/21/2022 05/21/2023 1 1 Encounter Details Care Team Description [place] [address] [facility] [address] [place] [address] 08/06/2022 Hospital Imaging: [facility] [place], Encounter [facility] [address] [place] [address] Social History Date Tobacco Use Types Packs/Day Years Used Smoking Tobacco: Never Smokeless Tobacco: Never Comments Alcohol Use Standard Drinks/Week Yes 0 (1 standard drink = 0.6 o z pure alcohol) Sex Assigned at Date Recorded Female 09/13/2021 8:59 AM CAVING GUIDE Date Recorded COVID-19 Exposure Response 08/06/2022 10:22 AM CAVING GUIDE In the last 10 days, have you [...] by Primary hypertension, mouth twice Atherosclerosis of [place] daily with coronary artery of [place] meals. Take heart without angina with food. pectoris 07/03/2021 celecoxib (CELEBREX) 200 Take 200 mg 0 mg capsule by mouth daily. cyanocobalamin (VITAMIN Take 500 mcg 0 B-12) 500 mcg tablet by mouth daily. diphenhydrAMINE hcl Take 25 mg by 0 (BENADRYL ALLERGY) 25 mg mouth every 6 tablet hours as needed. 08/28/[address] (CYMBALTA) Take 30 mg by 0 30 mg capsule mouth daily. 07/07/2022 ELIQUIS 5 mg TAKE 1 TABLET 180 tablet 3 tabletIndications: PAF BY MOUTH (paroxysmal atrial TWICE DAILY fibrillation) (HCC), Atherosclerosis of [place] coronary artery of [place] heart without angina pectoris ferrous sulfate (FEOSOL) [...] by mouth at bedtime daily. 07/02/[address] (PRILOSEC) TAKE 1 0 20 mg capsule CAPSULE BY MOUTH EVERY DAY DIRECTED pantoprazole DR pantoprazole 0 (PROTONIX) 40 mg tablet 40 mg tablet,delaye d release TAKE 1 TABLET BY MOUTH DAILY Potassium 99 mg tab Take 1 tablet [...] Procedure Name Priority Date/Time Associated Diag nosis CHEST 2 VIEWS Routine 08/06/2022 SOB (shortness of breath) 11:39 AM CAVING GUIDE documented in this encounter Results * CHEST 2 VIEWS (08/06/2022 11:39 AM CAVING GUIDE) Modality Anatomical Region Laterality Computed Radiography CHEST Anatomical Location / Laterality Collection Method / Volume Refugio ection Time Received Time Specimen (Source) 08/06/2022 1:10 PM CAVING GUIDE Impressions 08/06/2022 1:11 PM CAVING GUIDE Mild cardiomegaly without focal consolidation. Finalized by Huang Andrews MD on 08/06/2022 1:11 PM. Dictated by Huang Andrews MD on 08/06/2022 1:10 PM. Narrative 08/06/2022 1:11 PM CAVING GUIDE CHEST 2 VIEWS INDICATION: increased SOB. COMPARISON STUDY: None. FINDINGS: Lungs/Pleura: The lung volume is normal. Focal consolidation. No pleural effusion or pneumothorax. Heart and Mediastinum: Mildly enlarged cardiac silhouette. Tortuous aorta indicates that this was. Skeletal Structures and Soft Tissues: Degenerative changes of the spine. Implantable loop recorder in the anterior chest wall. Clips in the right upper quadrant of the abdomen. Procedure Note Huang Andrews MD - 08/06/2022 CHEST 2 VIEWS INDICATION: increased SOB. COMPARISON STUDY: None. FINDINGS: Lungs/Pleura: The lung volume is normal. Focal consolidation. No pleural effusion or pneumothorax. Heart and Mediastinum: Mildly enlarged cardiac silhouette. Tortuous aorta indicates that this was. Skeletal Structures and Soft Tissues: Degenerative changes of the spine. Implantable loop recorder in the anterior chest wall. Clips in the right upper quadrant of the abdomen. IMPRESSION Mild cardiomegaly without focal consolidation. Finalized by Huang Andrews MD on 08/06/2022 1:11 PM. Dictated by Huang Andrews MD on 08/06/2022 1:10 PM. Steve Joshi MD DIAGNOSTIC IMAGING ORDERABL ES documented in this encounter Visit Diagnoses Diagnosis SOB (shortness of breath) Shortness of breath documented in this encounter Additional Health Concerns Noted Time Assessment 08/06/2022 12:43 PM CAVING GUIDE A fall risk assessment has been complet ed for the patient 08/06/2022 12:42 PM CAVING GUIDE PHQ-2 Depression Total Score: 0 documented as of this encounter Care Teams Start Date End Date Derrick Hand Relationship Specialty 07/10/21 Sandy Glass MD PCP - [address] [id number] documented as of this encounter
--- OUTSIDE RECORDS SUMMARY | 2022-08-21 11:58 | XMS REPORT | Clinical Summary ---
Author Author [facility] Organization [facility] Address Unknown Phone Unavailable Care Team Providers Care Change Manager Name Role Phone Sandy Glass MD PCP Source Comments Some departments are not documenting in the electronic medical record. If you d o not see the information that you expected, contact Release of Information in [facility] [employer] Information Management department at [phone] for further assistan ce in locating additional records.[facility] Allergies Comments Active Allergy Reactions Severity Noted Date "couldn't open eyes but knew what was going on" "couldn't open eyes but knew what was going on" Diazepam SEE COMMENTS, Low 05/28/2016 UNKNOWN Pericardial effusion Rivaroxaban SEE COMMENTS High 10/04/2021 Medications End Date Status Medication Sig Dispensed Refills Start Date Active flecainide (TAMBOCOR) 50 Take 50 mg by 0 08/28 mg tablet mouth every 2 12 hours. Active Potassium 99 mg tab Take 1 tablet 0 by mouth daily. Active duloxetine DR (CYMBALTA) Take 30 mg by 0 08/28 30 mg capsule mouth daily. 2 Active celecoxib (CELEBREX) 200 Take 200 mg 0 07/03 mg capsule by mouth 1 daily. Active metoclopramide HCL Take 1 tablet 0 (REGLAN) 10 mg tablet by mouth at 8 bedtime daily. Active zolpidem (AMBIEN) 10 mg Take 10 mg by 0 tablet mouth daily. 1 Active Magnesium 250 mg tab Take 1 tablet 0 by mouth daily. Active CALCIUM CARBONATE PO Take 1 tablet 0 by mouth daily. Active cyanocobalamin (VITAMIN Take 500 mcg 0 B-12) 500 mcg tablet by mouth daily. Active loratadine (CLARITIN) 10 Take 10 mg by 0 mg tablet mouth every morning. Active ferrous sulfate (FEOSOL) Take 325 mg 0 325 mg (65 mg iron) by mouth tablet daily. Take on an empty stomach at least 1 hour before or 2 hours after food. Active carvediloL (COREG) 6.25 Take one 180 tablet 3 mg tabletIndications: tablet by 2 Primary hypertension, mouth twice Atherosclerosis of [place] daily with coronary artery of [place] meals. Take heart without angina with food. pectoris Active diphenhydrAMINE hcl Take 25 mg by 0 (BENADRYL ALLERGY) 25 mg mouth every 6 tablet hours as needed. Active losartan (COZAAR) 100 mg Take one 90 tablet 3 0 tabletIndications: tablet by 2 Primary hypertension mouth daily. Active levothyroxine (SYNTHROID) Take 100 mcg 0 100 mcg tablet by mouth 2 daily. Active hydroCHLOROthiazide Take one 90 tablet 2 (HYDRODIURIL) 25 mg tablet by 2 tabletIndications: mouth every Primary hypertension morning. Active atorvastatin (LIPITOR) 20 Take one 90 tablet 1 mg tabletIndications: tablet by 2 Mixed hyperlipidemia mouth daily. Active ELIQUIS 5 mg TAKE 1 TABLET 180 tablet 3 tabletIndications: PAF BY MOUTH 2 (paroxysmal atrial TWICE DAILY fibrillation) (HCC), Atherosclerosis of [place] coronary artery of [place] heart without angina pectoris Active omeprazole DR (PRILOSEC) TAKE 1 0 07/02 20 mg capsule CAPSULE BY 2 MOUTH EVERY DAY DIRECTED Active pantoprazole pantoprazole 0 (PROTONIX) 40 mg tablet 40 mg tablet,delaye d release TAKE 1 TABLET BY MOUTH DAILY 08/06/2022 Discontinued famotidine (PEPCID) 20 mg Take 20 mg by 0 tablet mouth twice daily. Active Problems Problem Noted Date Primary hypertension 10/02/2021 Actinic keratosis 09/11/2021 Atherosclerosis of [place] coronary artery of [place] h eart without angina 09/11/2021 pectoris Deficiency of other specified B group vitamins 09/11 Depression, unspecified 09/11/2021 Diaphragmatic hernia without obstruction 09/11/2021 Elevated erythrocyte sedimentation rate 09/11/2021 Family history of stroke 09/11/2021 Gastroesophageal reflux disease with esophagitis with out hemorrhage 09/11/2021 Overview: A. 11/02/2020 EGD showed reflux esopha gitis stage II, moderate size hiatal hernia approximately 4 cm in size, slig htly enlarged gastric pouch likely indicating inferior band slippage, no b and erosion, mild gastritis. Hormone replacement therapy 09/11/2021 Mixed hyperlipidemia 09/11/2021 Acquired hypothyroidism 09/11/2021 Iron deficiency anemia secondary to inadequate dietar y iron intake 09/11/2021 Obstructive sleep apnea (adult) (pediatric) 09/11/19 22 Overview: A. 06/30/2021 Sleep study showed she h ad a total of 15 apneas and 35 hypopneas, her lowest O2 sat was 80% to van time less than 89% was 3 minutes, overall was felt to show mild obstructive sleep apnea. Dyspnea on exertion 09/11/2021 Overview: A. 12/25/2011 myocardial perfusion stud y with Myoview showed an EF of 65%, there is no evidence of ischemia. B. 08/07/2017 treadmill MPI EF 64%, end -diastolic volume 55 mL, she exercised a total of 2 minutes 57 secon ds, achieving a heart rate of 150, which is 100% of her maximum predicted heart rate, there is no evidence of ischemia. C. 11/06/2020 MPI showed EF of 60%, the TID ratio was 0.93, summed stress score was 3, there is no evidence of is chemia. D. 05/14/2021 Echo EF 60 to 65%, left a trium mildly dilated, right atrium mildly dilated, trivial AI, peak pulmon kimber pressure was unable to be calculated. E. 06/04/2021 CTA no PE, large pericard ial effusion measuring up to 3.3 cm in thickness, moderate left and mild ri ght pleural effusion. E. 06/04/2021 Echo EF 55 to 60%, mild di astolic dysfunction, RV function normal, trace MR, trace TR, moderate to large sized pericardial effusion, RA diastolic collapse is noted, unable to calculate peak pulmonary pressure. F. 06/05/2021 successful pericardiocent esis. There is a bloody pericardial effusion. The echocardiogram in [facility] at that time showed a large pericardial effusion, after pericardioc entesis it was trivial in size. G. 06/06/2021 Echo EF 60 to 65%, small residual pericardial effusion. H. 06/10/2021 Echo EF 65 to 70%, mild d iastolic dysfunction, RV size and function normal, mild AI, trace TR, sma ll residual pericardial effusion. I. 06/18/2021 CTA chest showed small re sidual pericardial effusion, no acute pulmonary pathology, moderate siz e hiatal hernia. J.. 06/19/2021 Echo EF 55 to 60%, RV si ze and function normal, mild AI, trace TR, small pericardial effusion wa s noted, peak pulmonary pressures 30 mmHg. K. 07/04/2021 Echo EF 55 to 65%, RV siz e and function normal, mild AI, mild to moderate MR, TR not reported, aortic root mildly dilated, peak pulmonary pressure 25 to 30 mmHg, no pericardial effusion. L. 10/02/2021 LHC/LHC/simultaneous tra cings RA was 2, RV was 35/2, PA was 35/10/18, wedge was 10 with a V wave of 12-13, transpulmonary gradient was 8, PVR was 1.27, her LVEDP was 12. Her left main was normal, her LAD had 10 to 20% stenosis, her left circumflex was dominant and normal, the RCA was nondominant with a 50 to 60% stenos is. Simultaneous LV and RV tracing did not show evidence of constriction. Neurological symptoms 09/11/2021 Overview: A. 01/29/2017 MRI of the brain showed n o acute cerebral infarct or intracranial fluid collection, chronic lacunar infarcts and mild encephalomalacia of the left cerebellar hemisphere, moderate periventricular white matter disease. B. 03/19/2017 carotid Doppler showed mi nimal erythematous disease in the bilateral carotid systems anterograde f low was noted in bilateral vertebrals. C. 08/07/2017 carotid Doppler showed no hemodynamically significant stenosis. Encounter for screening for cardiovascular disorders 09/11/2021 Overview: A. 08/07/2017 aortic ultrasound showed no AAA or stenosis in the iliac arteries. B. 08/07/2017 right CARLITO was 1.3, left A BI was 1.2. PAF (paroxysmal atrial fibrillation) 09/11/2021 Overview: A. 05/13/2021 PAF started on diltiazem drip, spontaneously converted to normal sinus rhythm. She was started on Xarelto. She eventually was started on flecainide for antiarrhythmic therap y. B. 05/22/2021 placement of a [employer] looping event recorder. C. 06/04/2021 anticoagulation with Xare lto was discontinued after findings of large bloody pericardial effusion. Pericardial effusion 09/11/2021 Overview: Formatting of this note is di fferent from the original. A. 06/04/2021 presented with extreme d yspnea. CTA chest showed large pericardial effusion. She was transfer red to [facility] for further evaluation. B. 06/05/2021 successful pericardiocen tesis. There is a bloody pericardial effusion. The echocardiogram in the [facility] at that time showed a large pericardial effusion, after pericardioc entesis it was trivial in size. C. 06/05/2021 pericardial fluid was bl oody, RBCs 1,380,000, WBCs 3475, 38% neutrophils, 56% lymphocytes, 2% monocy claude, 3% eosinophils, 1% basophils, protein 5.7. Cytology was negative. D. 06/05/2021 labs showed sed rate 51, CRP 6.1, D-dimer 851. RA less than 10, DEBBIE positive and speckled with a ti ter of 1-80, antibody centromere less than 1-40, SCL-70 less than 20, do uble-stranded DNA less than 8, anti-ELECTORATE OFFICER less than 20, anti-SM antibody less than 20, Sjogren's SSA and SSB less than 20, C3 207, C4 26, Encounters Care Team Description Date Type Specialty Kinsey Astudillo RN Cardiac Clearance 08/08/2022 Telephone Cardiology Lois Cook RN Test/procedure 08/07/2022 Telephone Cardiology Royer Latif MD Dyspnea on exertion (Primary Dx); Physical deconditioning; JOHN (obstructive sleep apnea); Morbid obesity (HCC) 08/06/2022 Office Visit Pulmonology Steve Joshi MD 08/06/2022 Hospital Radiology Encounter Joe Nunez MD 08/06/2022 Hospital Encounter 08/06/2022 Travel Steve Joshi MD Medication Refill 07/06/2022 Refill Cardiology Meera Hahn RN Appointment Request 06/12/2022 Telephone Cardiology Tameka Alfonso Patient Reminder Call 06/10/2022 Telephone Cardiology Joe Nunez MD Shortness of breath (Primary Dx) 05/29/2022 Orders Only Pulmonology Steve Joshi MD CAD (Follow up/); Cholesterol 05/21/2022 Office Visit Cardiology 05/21/2022 Travel from Last 3 Months Medical History Medical History Date Comments Primary hypertension 10/02/2021 Family History Medical History Relation Name Comments Coronary Artery Disease Father Hypertension Father Sudden Cardiac Father Atrial Fibrillation Mother Hypertension Mother Relation Name Status Comments Father Mother Social History Date Tobacco Use Types Packs/Day Years Used Smoking Tobacco: Never Smokeless Tobacco: Never Tobacco Cessation: Counseling Given: No Comments Alcohol Use Standard Drinks/Week Yes 0 (1 standard drink = 0.6 o z pure alcohol) Sex Assigned at Date Recorded Female 09/13/2021 8:59 AM QUARRYING SPECIALIST Date Recorded COVID-19 Exposure Response 08/06/2022 10:22 AM QUARRYING SPECIALIST In the last 10 days, have you been in contact with N o / Unsure someone who was confirmed or suspected to have Coronavirus/COVID-19? Obstetrics History Last Filed Vital Signs Reading Time Taken Comments Vital Sign 132/78 08/06/2022 12:44 PM QUARRYING SPECIALIST Blood Pressure 84 08/06/2022 12:44 PM QUARRYING SPECIALIST Pulse 36.6 C (97.8 F) 10/02/2021 8:00 PM QUARRYING SPECIALIST Temperature 16 08/06/2022 12:44 PM QUARRYING SPECIALIST Respiratory Rate 98% 08/06/2022 12:44 PM QUARRYING SPECIALIST Oxygen Saturation - - Inhaled Oxygen Concentration 104.3 kg (230 lb) 08/06/2022 12:44 PM QUARRYING SPECIALIST Weight 156.2 cm (5' 1.5") 08/06/2022 12:44 PM QUARRYING SPECIALIST Height 42.75 08/06/2022 12:44 PM QUARRYING SPECIALIST Body Mass Index Plan of Treatment Health Maintenance Due Date Last Done Comments MEDICARE ANNUAL WELLNESS 1950 VISIT HEPATITIS C SCREENING 1968 PHYSICAL (COMPREHENSIVE) 1968 EXAM BREAST CANCER SCREENING 1990 COLORECTAL CANCER 1995 SCREENING OSTEOPOROSIS 2015 SCREENING/MONITORING PNEUMOCOCCAL VACCINE (2 - 05/13/2017 05/13/2016 PCV) DTAP/TDAP VACCINES (2 - 02/05/2021 02/05/2011 Td or Tdap) ADVANCED CARE PLANNING 07/27/2022 DISCUSSION AND DOCUMENTATION SHINGLES RECOMBINANT Completed 04/22/2019, VACCINE 12/17/2018, 03/13/2017 COVID-19 VACCINE Completed 04/24/2022, 02/05/2022, 06/15/2021, Additional history exists INFLUENZA VACCINE Completed 04/24/2022, 05/21/2021, 05/07/2020, Additional history exists Medical Devices Device Identifier Shelf Expiration Date Model / Serial / L ot Implanted Type Area Manufactur er Loop Recorder Loop Recorder Procedures Comments Procedure Name Priority Date/Time Associated Diag nosis CHEST 2 VIEWS Routine 08/06/2022 SOB (shortness of breath) 11:39 AM QUARRYING SPECIALIST PF LAB COMPLETE PULM Routine 08/06/2022 Shortness of breath FUNCTION 10:45 AM QUARRYING SPECIALIST from Last 3 Months Results * CHEST 2 VIEWS (08/06/2022 11:39 AM QUARRYING SPECIALIST) Modality Anatomical Region Laterality Computed Radiography CHEST Anatomical Location / Laterality Collection Method / Volume Refugio ection Time Received Time Specimen (Source) 08/06/2022 1:10 PM QUARRYING SPECIALIST Impressions 08/06/2022 1:11 PM QUARRYING SPECIALIST Mild cardiomegaly without focal consolidation. Finalized by Huang Andrews MD on 08/06/2022 1:11 PM. Dictated by Huang Andrews MD on 08/06/2022 1:10 PM. Narrative 08/06/2022 1:11 PM QUARRYING SPECIALIST CHEST 2 VIEWS INDICATION: increased SOB. COMPARISON [...] Steve Joshi MD DIAGNOSTIC IMAGING ORDERABL ES * PF LAB COMPLETE PULM FUNCTION (08/06/2022 10:45 AM QUARRYING SPECIALIST) Pathologist Signature Component Value Ref Test Method Analysis Performed A t Range Time FVC-Pre 2.58 L [facility] FVC-%Pred-pre 101 % [facility] FEV1-Pre 1.94 L [facility] FEV1-%Pred-Pre 98 % [facility] FEV1/FVC-Pre 75 % [facility] [id number] 65 % [facility] [id number] 1.34 L/sec [facility] [id number]-%Pred-Pre 78 % [facility] RVPleth-Pre 1.98 [...] DLVA-#SD -0.184 ml/min/m [facility] mHg/L [id number] 72 % [facility] Anatomical Location / Laterality Collection Method / Volume Refugio ection Time Received Time Specimen (Source) 08/06/2022 10:45 AM QUARRYING SPECIALIST Joe Nunez MD PULMONARY FUNCTION ORDERABL ES City/State/ZIP Code Phone Number Performing [place] [address] [facility] [address] from Last 3 Months Insurance Type Payer Benefit Subscriber ID Effective Phone Address Plan / Dates Group Medicare MEDICARE MEDICARE [id number] 2015-P [phone] [address] [place] [address] Medicare CIGNA CIGNA [id number] 2017-P [phone] [address] MEDICARE resent [id number] [place] [id number] 1 Advance Directives Date Inactivated Comments Code Status Date Activated 10/02/2021 11:25 PM Full Code 10/02/2021 12:29 PM Provider has discussed Code Status No, discussion no t w/Patient or Family? necessary based on Dx Care Teams Start Date End Date Change Manager Relationship Specialty 07/10/21 Sandy Glass MD PCP - General Family [facility] [place] [address]
--- NOTE | 2022-08-21 11:59 | Progress Note-Pre Operative ---
Pre-Operative Progress Note Date H&P Reviewed: Aug 21, 2022 Time H&P Reviewed: 11:59 History & Physical: H&P Reviewed, Patient Examed, No changes noted Pre-Operative Diagnosis: Morbid obesity, GERD, HTN, Hiatal hernia BRAYAN LAMBERT APRN Aug 21, 2022 11:59
--- OUTSIDE RECORDS SUMMARY | 2022-08-21 11:59 | XMS REPORT | Encounter Summary ---
Author Author [facility] Organization [facility] Address Unknown Phone Unavailable Care Team Providers Care Automotive Glass Mechanic Name Role Phone Sandy Glass MD PCP Reason for Visit * Reason Comments Medication Refill Encounter Details Care Team Description [place] [id number] [facility] [place] [address] [place] [address] Medication Refill 07/06/2022 Refill Cardiology: [facility] [place], [address] [place] [address] Social History Date Tobacco Use Types Packs/Day Years Used Smoking Tobacco: Never Smokeless Tobacco: Never Comments Alcohol Use Standard Drinks/Week Yes 0 (1 standard drink = 0.6 o z pure alcohol) Sex Assigned at Date Recorded Female 09/13/2021 8:59 AM MARKETING TECHNOLOGY COORDINATOR documented as of this encounter Ordered Prescriptions Start Date End Date Prescription Sig Dispensed Refills 07/07/2022 ELIQUIS 5 mg TAKE 1 TABLET 180 tablet 3 tabletIndications: PAF BY MOUTH (paroxysmal atrial TWICE DAILY fibrillation) (HCC), Atherosclerosis of [place] coronary artery of [place] heart without angina pectoris documented in this encounter Plan of Treatment Not on filedocumented as of this encounter Visit Diagnoses Diagnosis PAF (paroxysmal atrial fibrillation) (H CC) Atrial fibrillation Atherosclerosis of [place] coronary barbi ry of [place] heart without angina pectoris documented in this encounter Discontinued Medications Start Date End Date Medication Sig Discontinue Reason 10/04/2021 07/07/2022 apixaban (ELIQUIS) 5 mg Take one tabletIndications: PAF tablet by (paroxysmal atrial mouth twice fibrillation) (HCC), daily. Atherosclerosis of [place] coronary artery of [place] heart without angina pectoris documented as of this encounter Additional Health Concerns Noted Time Assessment 10/02/2021 12:56 PM MARKETING TECHNOLOGY COORDINATOR A fall risk assessment has been complet ed for the patient documented as of this encounter Care Teams Start Date End Date Automotive Glass Mechanic Relationship Specialty 07/10/21 Sandy Glass MD PCP - [address] [id number] documented as of this encounter
--- OUTSIDE RECORDS SUMMARY | 2022-08-21 11:59 | XMS REPORT | Encounter Summary ---
Author Author [facility] Organization [facility] Address Unknown Phone Unavailable Care Team Providers Care Social Media Assistant Name Role Phone Sandy Glass MD PCP Reason for Visit * Reason Comments Shortness of Breath * Consult, Test & Treat (Routine) - Authorized Diagnoses / Procedures Referred By Contact Referred To Conta ct Specialty Diagnoses SOB (shortness [place] [id number] [facility] [place] [address] [place] [address] Joe Nunez MD [address] [facility] [address] [place] [id number] Pulmonology Referral ID Status Reason Start Date Expiration Visits Vi sits Date Requested Authorized [id number] Authorized Specialty Services 05/21/2022 05/21/2023 1 1 Required Encounter Details Care Team Description Date Type Department Royer Latif MD [address] [place] [address] Dyspnea on exertion (Primary Dx); Physical deconditioning; JOHN (obstructive sleep apnea); Morbid obesity (HCC) 08/06/2022 Office Visit Pulmonology: [facility]ine [facility]ren[facility], [facility] [address], [address] [address] Social History Date Tobacco Use Types Packs/Day Years Used Smoking Tobacco: Never Smokeless Tobacco: Never Tobacco Cessation: Counseling Given: No Comments Alcohol Use Standard Drinks/Week Yes 0 (1 standard drink = 0.6 o z pure alcohol) Sex Assigned at Date Recorded Female 09/13/2021 8:59 AM RESIDENTIAL YOUTH COUNSELOR Date Recorded COVID-19 Exposure Response 08/06/2022 10:22 AM RESIDENTIAL YOUTH COUNSELOR In the last 10 days, have you been in contact with N o / Unsure someone who was confirmed or suspected to have Coronavirus/COVID-19? documented as of this encounter Last Filed Vital Signs Reading Time Taken Comments Vital Sign 132/78 08/06/2022 12:44 PM RESIDENTIAL YOUTH COUNSELOR Blood Pressure 84 08/06/2022 12:44 PM RESIDENTIAL YOUTH COUNSELOR Pulse - - Temperature 16 08/06/2022 12:44 PM RESIDENTIAL YOUTH COUNSELOR Respiratory Rate 98% 08/06/2022 12:44 PM RESIDENTIAL YOUTH COUNSELOR Oxygen Saturation - - Inhaled Oxygen Concentration 104.3 kg (230 lb) 08/06/2022 12:44 PM RESIDENTIAL YOUTH COUNSELOR Weight 156.2 cm (5' 1.5") 08/06/2022 12:44 PM RESIDENTIAL YOUTH COUNSELOR Height 42.75 08/06/2022 12:44 PM RESIDENTIAL YOUTH COUNSELOR Body Mass Index documented in this encounter Progress Notes * Royer Latif MD - 08/06/2022 2:45 PM CST Date of Service: 08/06/2022 CC: shortness of breath Subjective HPI: Kajal Carbone is a 72 y.o. female with pmhx of atrial fibrillation (on Flecain mina and Eliquis), h/o pericardial effusion of unclear etiology, HTN, HLD, hiatia l hernia and h/o reflux esophagitis, prior lab band s/p reversal, mild JOHN on CP AP who presents for evaluation of shortness of breath with exertion. She is accompanied by her who is a retired Family Physician. Together th ey share that Pulmonary evaluation was recommended due to dyspnea on exertion, w hich she believes began about 2 years ago. She denies prior pulmonary issues as a child or throughout her adult life. She shares that she is followed closely by Cardiology and thorough cardiac work-up has not revealed an etiology of her THOMAS; in addition, she is planning to undergo a gastric sleeve operation with repair of her hiatal hernia and wanted to ensure that there are not any pulmonary issu es that would preclude her from having this done. She cannot recall anything specific that occurred near the time her symptoms sta rted. She shares that her shortness of breath is only present with exertion and not at rest. Climbing one flight of stairs or walking 1-2 blocks makes her short of breath. She has no associated palpitations, chest pain, lower extremity samm a, orthopnea. She has noticed 80 lb weight gain during this time period and feels that this co uld be the cause; she notices that she has not had nearly as much activity as pr eviously. She reports shortness of breath when clmining stairs. She denies shortness of br eath at rest. Denies palpitations, chest pain, lower extremity edema, fever, chi lls. Past Medical History: Medical History: Diagnosis Date Primary hypertension 10/02/2021 Past Surgical History: Surgical History: Procedure Laterality Date ANGIOGRAPHY CORONARY ARTERY WITH RIGHT AND LEFT HEART CATHETERIZATION N/A 10/02/2021 Performed by Rahul Mccallum MD at [facility] POSSIBLE PERCUTANEOUS CORONARY STENT PLACEMENT WITH ANGIOPLASTY N/A 10/02/2021 Performed by Rahul Mccallum MD at [facility] Family History: Family History Problem Relation Age of Onset Hypertension Mother Atrial Fibrillation Mother Hypertension Father Coronary Artery Disease Father Sudden Cardiac Father Social History: Social History Socioeconomic History Marital status: Tobacco Use Smoking status: Never Smokeless tobacco: Never Vaping Use Vaping Use: Never used Substance and Sexual Activity Alcohol use: Yes Drug use: Never Medications: atorvastatin (LIPITOR) 20 mg tablet Take one tablet by mouth daily. CALCIUM CARBONATE PO Take 1 tablet by mouth daily. carvediloL (COREG) 6.25 mg tablet Take one tablet by mouth twice daily with meals. Take with food. celecoxib (CELEBREX) 200 mg capsule Take 200 mg by mouth daily. cyanocobalamin (VITAMIN B-12) 500 mcg tablet Take 500 mcg by mouth daily. diphenhydrAMINE hcl (BENADRYL ALLERGY) 25 mg tablet Take 25 mg by mouth ever y 6 hours as needed. duloxetine DR (CYMBALTA) 30 mg capsule Take 30 mg by mouth daily. ELIQUIS 5 mg tablet TAKE 1 TABLET BY MOUTH TWICE DAILY ferrous sulfate (FEOSOL) 325 mg (65 mg iron) tablet Take 325 mg by mouth herb ly. Take on an empty stomach at least 1 hour before or 2 hours after food. flecainide (TAMBOCOR) 50 mg tablet Take 50 mg by mouth every 12 hours. hydroCHLOROthiazide (HYDRODIURIL) 25 mg tablet Take one tablet by mouth ever y morning. levothyroxine (SYNTHROID) 100 mcg tablet Take 100 mcg by mouth daily. loratadine (CLARITIN) 10 mg tablet Take 10 mg by mouth every morning. losartan (COZAAR) 100 mg tablet Take one tablet by mouth daily. Magnesium 250 mg tab Take 1 tablet by mouth daily. metoclopramide HCL (REGLAN) 10 mg tablet Take 1 tablet by mouth at bedtime d aily. omeprazole DR (PRILOSEC) 20 mg capsule TAKE 1 CAPSULE BY MOUTH EVERY DAY DIRECTED pantoprazole DR (PROTONIX) 40 mg tablet pantoprazole 40 mg tablet,delayed re lease TAKE 1 TABLET BY MOUTH DAILY Potassium 99 mg tab Take 1 tablet by mouth daily. zolpidem (AMBIEN) 10 mg tablet Take 10 mg by mouth daily. Allergies: Allergies Allergen Reactions Xarelto [Rivaroxaban] SEE COMMENTS Pericardial effusion Diazepam SEE COMMENTS and UNKNOWN "couldn't open eyes but knew what was going on" "couldn't open eyes but knew what was going on" ROS: Review of Systems Constitutional: Positive for activity change and unexpected weight change. Negat tiana for fever. Respiratory: Positive for shortness of breath. Negative for apnea, cough, chokin g and chest tightness. Cardiovascular: Negative for chest pain, palpitations and leg swelling. Gastrointestinal: +acid reflux All other systems reviewed and are negative. Vitals & Physical Exam: Vitals: 08/06/22 1244 BP: 132/78 BP Source: Arm, Right Upper Pulse: 84 Resp: 16 SpO2: 98% PainSc: Two Weight: 104.3 kg (230 lb) Height: 156.2 cm (5' 1.5") Body mass index is 42.75 kg/m. Physical Exam Vitals reviewed. Constitutional: General: She is not in acute distress. Appearance: Normal appearance. She is not toxic-appearing. HENT: Head: Normocephalic. Nose: Nose normal. No congestion. Mouth/Throat: Mouth: Mucous membranes are moist. Pharynx: No oropharyngeal exudate. Eyes: Extraocular Movements: Extraocular movements intact. Cardiovascular: Rate and Rhythm: Normal rate and regular rhythm. Pulses: Normal pulses. Pulmonary: Effort: Pulmonary effort is normal. No respiratory distress. Breath sounds: Normal breath sounds. No wheezing or rales. Musculoskeletal: Cervical back: Normal range of motion. Lymphadenopathy: Cervical: No cervical adenopathy. Skin: General: Skin is warm and dry. Neurological: Mental Status: She is alert. Labs: Reviewed limited labs in O2 Imaging: CXR 08/06/2022: personally reviewed today's CXR which is normal MPI 11/06/2020: EF of 60%, no evidence of ischemia TTE 07/04/21: EF 55-65%, normal RV size and function, mild AI, mild to mod MR, PA SP 25 mmhg and no pericardial effusion L/RHC 10/02/21: RA 2, RV 35/2, PA35/10/18, PCWP 10 with a V wave of 12-13 transpulmonary gradient 8 PVR 1.27 LVEDP was 12 Her left main was normal, her LAD had 10 to 20% stenosis, her left circumflex wa s dominant and normal, the RCA was nondominant with a 50 to 60% stenosis. Simu ltaneous LV and RV tracing did not show evidence of constriction. PFTs: 08/06/22 FVC 2.58L, 101% FEV1 1.94L, 98% Ratio 75% RV 1.98L, 94% TLC 4.56L, 97% DLCO 99% Personally reviewed today's PFTs which are consistent with normal spirometry and lung volumes as well as diffusion capacity. Bronchodilator testing was not perf ormed as pt declined. Assessment : Kajal Carbone is a 72 y.o. female with pmhx of atrial fibrillation (on Flecain mina and Eliquis), h/o pericardial effusion of unclear etiology, HTN, HLD, hiatia l hernia and h/o reflux esophagitis, prior lab band s/p reversal, mild JOHN on CP AP who presents for evaluation of shortness of breath with exertion which has be en present, but stable for two years. I reviewed her complete pulmonary function tests performed today which reveal no rmal spirometry, lung volumes and diffusion capacity. We also reviewed her CXR t ogether which reveals no parenchymal abnormalities or clear pulmonary etiology f or shortness of breath. Ms. Carbone did note that her shortness of breath began around the time her lap band "failed" and she had an associated 80 lb weight gai n. Her exercise tolerance has decreased readily since then and she feels decondi tioned related to this. I reassured her that our testing reveals no pulmonary ab normalities and she should have no limitations as she pursues a gastric sleeve a nd starts an exercise program following this. I also reassured her that based on our testing today, there are no contraindications, from a pulmonary perspective , to completing her gastric sleeve procedure. Plan: - proceed with gastric sleeve as planned - if shortness of breath does not improve/resolve with weight loss, can re-evalu ate and consider CPET RTC PRN. Dicsussed & evaluated with Dr. Zeng. Royer Latif MD, PGY5 Pulmonary & Critical Care Fellow PULMONARY STAFF ATTESTATION I personally performed the flanagan portions of the E/M visit, discussed the case wit h the fellow and concur with fellow documentation of history, physical exam, ass essment, and treatment plan unless otherwise noted. 72 year old female who presents for evaluation of dyspnea. PFTs normal, CXR norm al. Suspect related to deconditioning in the setting of significant weight gain. Agree with plan as outlined above. Aubrey Zeng MD Pulmonary and Critical Care DENTIAL YOUTH COUNSELOR documented in this encounter Miscellaneous Notes * Patient Instructions - Royer Latif MD - 08/06/2022 2:45 PM RESIDENTIAL YOUTH COUNSELOR Thank you for coming in today! I am happy to share that your lung function tests and your chest x-ray are normal and do not indicate any underlying lung issues. I wish you the best with your gastric sleeve. Please do not hesitate to reach o ut should your symptoms not resolve with the weight loss you are hoping to achie ve! My nurse is Joelle Calzada RN. She can be reached at [phone]. Please contact my nurse with any signs and symptoms of worsening productive coug h with thick secretions, blood in sputum, chest tightness/pain, shortness of abbi ath, fever, chills, night sweats, or any questions or concerns. For refills on medications, please have your pharmacy fax a refill authorization request form to our office at [phone]. Please allow at least 3 business da ys for refill requests. For urgent issues after business hours/weekends/holidays call [phone] and charli nunez for the contract mail carrier to be paged. DENTIAL YOUTH COUNSELOR documented in this encounter Plan of Treatment Not on filedocumented as of this encounter Visit Diagnoses Diagnosis Dyspnea on exertion - Primary Other dyspnea and respiratory abnormali ty Physical deconditioning Debility, unspecified JOHN (obstructive sleep apnea) Obstructive sleep apnea (adult) (pediat yudy) Morbid obesity (HCC) Morbid obesity documented in this encounter Discontinued Medications Start Date End Date Medication Sig Discontinue Reason 08/06/2022 famotidine (PEPCID) 20 mg Take 20 mg tablet by mouth twice daily. documented as of this encounter Historical Medications * This list may reflect changes made after this encounter. Start Date End Date Medication Sig Dispensed Refills pantoprazole pantoprazole 0 (PROTONIX) 40 mg tablet 40 mg tablet,delaye d release TAKE 1 TABLET BY MOUTH DAILY 07/02/2022 omeprazole (PRILOSEC) TAKE 1 0 20 mg capsule CAPSULE BY MOUTH EVERY DAY DIRECTED added in this encounter Additional Health Concerns Noted Time Assessment 08/06/2022 12:43 PM RESIDENTIAL YOUTH COUNSELOR A fall risk assessment has been complet ed for the patient 08/06/2022 12:42 PM RESIDENTIAL YOUTH COUNSELOR PHQ-2 Depression Total Score: 0 documented as of this encounter Care Teams Start Date End Date Social Media Assistant Relationship Specialty 07/10/21 Sandy Glass MD PCP - General [address] [address] documented as of this encounter
[2022-08-21] MEDS ORDERED: BUP/EPI 0.5% 1:200,000 (SENSORCAINE) 30 ML VIAL ONE (12:13)
[2022-08-21] MEDS ORDERED: NS (IVPB) 50 ML ONE (12:22)
[2022-08-21] MEDS ORDERED: ceFAZolin INJECTION 2,000 MG ONE (12:22)
[2022-08-21] MEDS ORDERED: ONDANSETRON 4 MG/2 ML (SDV) Z0FRAN ONE ×3 (12:42→17:01)
[2022-08-21] MEDS ORDERED: ROCURONIUM 50 MG/5 ML (ZEMURON) VIAL IV ONE ×2 (12:42→15:42)
[2022-08-21] MEDS ORDERED: proPOfol 200 MG/20 ML (DIPRIVAN) VIAL IV ONE (12:42)
[2022-08-21] MEDS ORDERED: fentaNYL INJ 100 MCG/2 ML AMP ONE ×2 (12:42→16:08)
[2022-08-21] MEDS ORDERED: GLYCOPYRROLATE 0.2 MG/ML (ROBINUL) 2 ML VIAL ONE (12:42)
[2022-08-21] MEDS ORDERED: LIDOCAINE PF 2% 5 ML (XYLOCAINE) VIAL ONE (12:42)
[2022-08-21] MEDS ORDERED: NEOSTIGMINE (BLOXIVERZ ) 1 MG/1ML 10 ML VIAL ONE (12:43)
[2022-08-21] MEDS ORDERED: diphenhydrAMINE 50 MG/ML INJ (BENADRYL) IVP PRN (12:45)
[2022-08-21] MEDS ORDERED: diphenhydrAMINE 50 MG/ML INJ (BENADRYL) IV PRN (12:45)
[2022-08-21] MEDS ORDERED: FAMOTIDINE 20MG/2ML IV (PEPCID) IV ONE (12:45)
[2022-08-21] MEDS ORDERED: NALOXONE 0.4 MG/ML 1 ML (NARCAN) VIAL IV PRN (12:45)
[2022-08-21] MEDS ORDERED: LACTATED RINGERS 1,000 ML IV PRN (12:45)
[2022-08-21] MEDS ORDERED: ONDANSETRON 4 MG/2 ML (SDV) Z0FRAN IV ONE (12:45)
[2022-08-21] MEDS ORDERED: METOCLOPRAMIDE INJ 10 MG/2 ML (REGLAN) IV PRN (12:45)
[2022-08-21] MEDS ORDERED: NS IV 1000 ML 1,000 ML IV SCH (12:45)
[2022-08-21] MEDS ORDERED: ONDANSETRON 4 MG/2 ML (SDV) Z0FRAN IV PRN (12:45)
[2022-08-21] MEDS ORDERED: fentaNYL INJ 1,000 MCG in NS (IVPB) 80 ML IV PRN (12:45)
[2022-08-21] MEDS: ceFAZolin INJECTION 2,000 MG in NS (IVPB) 50 ML IV SCH ×2 (13:36→21:21)
[2022-08-21] MEDS ORDERED: BUP/EPI 0.5% 1:200,000 (SENSORCAINE) 30 ML VIAL INJ ONE (14:11)
[2022-08-21] MEDS ORDERED: PHENYLEPHRINE 100 MCG/ML 10 ML (ANESTHESIA) SYR ONE (15:15)
--- NOTE | 2022-08-21 16:55 | Progress Note-Post Operative ---
Post-Operative Progess Note Surgeon (s)/Condominium Manager (s) Surgeon CONNOR TOPETE MD Condominium Manager: chandni rutledge MAID SUPERVISOR Pre-Operative Diagnosis Morbid obesity, GERD, HTN, Hiatal hernia Post-Operative Diagnosis same Procedure & Operative Findings Date of Procedure 08/21/22 Procedure Performed/Findings laparoscopic hiatal hernia repair and gastric sleeve resection. Anesthesia Type get Estimated Blood Loss Estimated blood loss (mL): minimal Specimens/Packing Specimens Removed stomach CONNOR TOPETE MD Aug 21, 2022 16:55
[2022-08-21] MEDS ORDERED: PROMETHAZINE INJ 25 MG/ML (PHENERGAN) AMP ONE (17:04)
[2022-08-21] MEDS ORDERED: morphine INJ 10 MG/ML 1ML (SYR OR VIAL) IVP ONE (17:15)
[2022-08-21] MEDS ORDERED: PROMETHAZINE INJ 25 MG/ML (PHENERGAN) AMP IVP ONE (17:15)
[2022-08-21] MEDS ORDERED: HYDROmorphone 2 MG/ML VIAL (DILAUDID) IV ONE (17:15)
[2022-08-21] MEDS ORDERED: ONDANSETRON 4 MG/2 ML (SDV) Z0FRAN IVP PRN (17:15)
[2022-08-21] MEDS ORDERED: fentaNYL PCA 1,000 MCG/100 ML IV PRN (18:00)
[2022-08-21] MEDS: METOCLOPRAMIDE INJ 10 MG/2 ML (REGLAN) IVP SCH (18:04)
[2022-08-21] MEDS: ONDANSETRON 4 MG/2 ML (SDV) Z0FRAN IVP SCH (18:05)
[2022-08-21] MEDS: RT-ALBUTEROL SULF 2.5 MG/3 ML PRE-MIX VIAL INH SCH ×2 (18:31→22:27)
[2022-08-21] MEDS: 1/2 NS W/KCL 20 MEQ/L 1,000 ML IV SCH (18:33)
[2022-08-21] MEDS: metroNIDAZOLE 500MG/100ML IVPB 100 ML IV SCH (19:01)
[2022-08-21] MEDS: ENOXAPARIN INJECTION 30 MG/0.3 ML SYR SC SCH (20:42)
[2022-08-21] MEDS ORDERED: PROMETHAZINE INJ 25 MG/ML (PHENERGAN) AMP IVP PRN (20:45)
[2022-08-21] MEDS ORDERED: meTOprolol 5 MG/5 ML (LOPRESSOR) VIAL IV PRN (23:30)
[2022-08-22] MEDS: METOCLOPRAMIDE INJ 10 MG/2 ML (REGLAN) IVP SCH ×2 (00:09→06:14)
[2022-08-22] MEDS: ONDANSETRON 4 MG/2 ML (SDV) Z0FRAN IVP SCH ×3 (00:09→12:15)
--- NOTE | 2022-08-22 00:53 | OPERATIVE REPORT ---
DATE OF SERVICE: 08/21/2022 ATTENDING PRIMARY CARE PHYSICIAN: Dr. Sandy Glass. PREOPERATIVE DIAGNOSES: Morbid obesity, hypertension, gastroesophageal reflux disease. POSTOPERATIVE DIAGNOSES: Morbid obesity, hypertension, gastroesophageal reflux disease. PROCEDURE: Laparoscopic hiatal hernia repair and a gastric sleeve resection. SURGEON: Connor Trent MD SAP CRM DEVELOPER: Severiano Arredondo APRN ANESTHESIA: General endotracheal. ESTIMATED BLOOD LOSS: Minimal. FINDINGS: Some scar tissue at the angle of His due to a previous laparoscopic adjustable gastric band placement and removal. DISPOSITION: The patient tolerated the procedure well. INDICATIONS: The patient is a 72-year-old female known to us. She has a longstanding history of gastroesophageal reflux disease and this progressed to a substernal chest pressure and burning sensation. She had a laparoscopic adjustable gastric band placed over 20 years ago in [place] and states that she was able to lose approximately 90 pounds at her best; however, she did regain approximately half of her weight back. We had done an EGD on 11/02/2020 and she was found to have reflux esophagitis, Park grade B and a moderate-sized hiatal hernia approximately 4 cm in size was identified. Biopsies were negative for H. pylori as well as negative Jones's esophagus. We tried to continue with medical management; however, the patient continued to have symptoms due to an inferior band slippage and on 12/27/2020, she underwent a diagnostic laparoscopy and removal of adjustable gastric band. She did well after surgery and attempted to proceed with medical management for weight maintenance and loss including continued high protein diet with lean meat protein sources as well as low carbohydrate, low sugar and high-fiber foods. She states that despite trying to do this, she continued to gain some of her weight back. She has also tried exercise regimens including walking and stationary bike; however, again was unable to lose weight. The patient is now in our surgical weight loss program for the gastric sleeve resection and does meet medical criteria for bariatric surgery. Her weight was 224.6 pounds at 5 feet 3 inches and a body mass index of 39.78. She has undergone all the necessary evaluation and testing including a nutrition and psychology evaluation as well as previous EGD. DESCRIPTION OF PROCEDURE: The patient was brought to the operating room, laid supine on the table. After adequate IV pain and sedative medications and general endotracheal intubation, the abdomen was prepped and draped in standard surgical fashion. A 0.5% Marcaine with epinephrine was used to anesthetize the overlying skin in the left upper abdominal quadrant and a transverse skin incision made using a #15 blade. An 0 silk suture was applied to the medial aspect of the incision for retraction. A Veress needle inserted with low opening pressure of 0 mmHg and the abdomen was then insufflated to 15 mmHg pressure. The Veress needle was removed and a 5 mm XL trocar placed followed by a 5 mm 45-degree angle laparoscope visualized in the peritoneal cavity. A 4-quadrant abdominal exploration was performed. There was an adhesion tissue at the fundus and angle of His due to a previous laparoscopic adjustable gastric band placement and removal. There was also mild liver steatosis. Under direct visualization, we then proceeded to place a mid abdominal left of midline 10 mm port after the skin and peritoneal lining were anesthetized using 0.5% Marcaine with epinephrine and the transverse skin incision made using a #15 blade. In a similar manner, a mid abdominal right of midline 15 mm port was placed followed by a right upper abdominal quadrant 5 mm port. The epigastric region was then anesthetized using 0.5% Marcaine with epinephrine and a transverse skin incision made using a #15 blade. A tract was then created using a trocar to a 5 mm port and through this opening, a medium size Aria liver retractor was placed and the left lobe of the liver retracted anteriorly and superiorly. The patient was then placed in steep reverse Trendelenburg position. We then measured 6 cm from the pylorus along the greater curvature and marked this area with a marking pen. We then proceeded with opening of the pars flaccida using a Sonicision and proceeding with circumferential dissection of the hiatal hernia sac and reduction of the sac using a Sonicision as well as blunt dissection. We proceeded with the inferior dissection until the right and left grabiel of the diaphragm were also identified. Good hemostasis was observed. We then proceeded to place a 36-Dominican ViSiGi as a bougie and then proceeded to approximate the left and right grabiel of the diaphragm until the grabiel was loosely around the bougie. This was done using a 2-0 Surgidac suture on EndoStitch device. Good hemostasis was observed. We then proceeded to pexy the gastroesophageal junction to the esophageal hiatus bilaterally using a 2-0 Surgidac interrupted sutures. We then proceeded with opening of the gastrocolic ligament next to the stomach, entering the lesser sac. We then proceeded with inferior dissection until we were approximately 2 cm below our marking. We then proceeded cephalad taking the short gastric vessels as well as all of the scar tissue around the fundus and the angle of His connective tissue fibers using blunt dissection as well as the Sonicision with visualization with good hemostasis. We then proceeded with our gastric sleeve resection starting with a 45 mm polyglycolic acid coated black load. We then proceeded with 4 more black loads using the BCG as a staple line guide and completing gastric sleeve resection with a 60 mm purple load, leaving approximately 2 cm next to the gastroesophageal junction with visualization of good hemostasis. The staple line corners were then clipped with 5 mm clips. We then proceeded with a leak test and the patient was flattened and saline placed and the stomach was insufflated with air to 35 mmHg pressure with no leak identified. The staple line was then covered with fibrin glue and the omentum placed over the staple line. The stomach was removed through the 15 mm port site. The fascia and peritoneum to the 10 and 15 mm port sites were then closed under direct visualization using a Julio-Serenity device and 0 Vicryl suture. The abdomen was desufflated and the remaining ports were removed. All skin incisions were closed using 4-0 Monocryl running subcuticular sutures. Wounds were then cleaned and covered with Dermabond. The patient tolerated the procedure well. We will start pain control with a DELINQUENCY PREVENTION OFFICER pump and also DVT prophylaxis with early ambulation calf SCDs as well as Lovenox injections. Tomorrow morning, we will start a phase 1 clear liquid diet and then start with 30 mL every 30 minutes and up and if she tolerates this double it to 60 mL every 30 minutes and once she is able to tolerate this, has adequate pain control with oral pain medication and is ambulating well, we will discharge her home where she will be instructed to continue with a phase 1 clear liquid diet for the next 2 weeks as well as to do no heavy lifting or exertion for the same timeframe. Job ID: [id number] DocumentID: [id number] Dictated Date: 08/21/2022 17:10:47 Locker Plant Attendant Date: 08/22/2022 00:52:00 Dictated By: CONNOR TRENT MD
[2022-08-22] MEDS: metroNIDAZOLE 500MG/100ML IVPB 100 ML IV SCH ×2 (01:04→10:06)
[2022-08-22] MEDS: 1/2 NS W/KCL 20 MEQ/L 1,000 ML IV SCH ×2 (02:47→10:03)
[2022-08-22 03:42] VITALS: BP 119/79
[2022-08-22 04:54] LABS: HEMATOCRIT 43 % (35-52); MEAN CORPUSCULAR HEMOGLOBIN 33 pg (25-34); MEAN CORPUSCULAR HGB CONC 35 g/dL (32-36); MEAN CORPUSCULAR VOLUME 94 fL (80-99); MEAN PLATELET VOLUME 11.1 fL (9.0-12.2); PLATELET COUNT 262 10^3/uL (130-400); WHITE BLOOD COUNT 12.8 10^3/uL (4.3-11.0)
[2022-08-22 05:35] LABS: POTASSIUM 3.6 MMOL/L (3.6-5.0)
[2022-08-22 05:36] LABS: CALCIUM 8.5 MG/DL (8.5-10.1)
[2022-08-22 05:41] LABS: CREATININE SERUM 1.71 MG/DL (0.60-1.30)
[2022-08-22] MEDS: ceFAZolin INJECTION 2,000 MG in NS (IVPB) 50 ML IV SCH (06:15)
[2022-08-22] MEDS: RT-ALBUTEROL SULF 2.5 MG/3 ML PRE-MIX VIAL INH SCH (06:57)
[2022-08-22] MEDS ORDERED: METOCLOPRAMIDE INJ 10 MG/2 ML (REGLAN) IVP PRN ×2 (08:00→12:45)
[2022-08-22 08:33] VITALS: BP 160/70
[2022-08-22] MEDS ORDERED: PANTOPRAZOLE 40 MG (PROTONIX) TAB PO SCH (09:00)
[2022-08-22] MEDS ORDERED: SENNA W/DOCUSATE (SENOKOT S) TABLET PO SCH (09:00)
[2022-08-22] MEDS ORDERED: PANTOPRAZOLE 40 MG (PROTONIX) VIAL IV SCH (09:00)
[2022-08-22] MEDS: ENOXAPARIN INJECTION 30 MG/0.3 ML SYR SC SCH (10:06)
--- NOTE | 2022-08-22 10:16 | Anesthesia-General Post-Op ---
General Patient Condition Mental Status/LOC: Same as Preop Cardiovascular: Satisfactory Nausea/Vomiting: Absent Respiratory: Satisfactory Pain: Controlled Complications: Absent Post Op Complications Complications None Follow Up Care/Instructions Patient Instructions None needed. Anesthesia/Patient Condition Patient Condition Patient is doing well, no complaints, stable vital signs, no apparent adverse anesthesia problems. No complications reported per nursing. BLAIR ZULUAGA CRNA Aug 22, 2022 10:16
--- NOTE | 2022-08-22 10:45 | Progress Note ---
Subjective Date Seen by a Provider: Aug 22, 2022 Time Seen by a Provider: 10:30 Subjective/Events-last exam doing well. tolerating clears. no nausea/vomiting. no fever/chills. ambulating ok. pain controlled. Objective Exam Vital Signs Date Time Temp Pulse Resp B/P (MAP) Pulse Ox O2 Delivery O2 Flow Rate FiO2 08/22/22 08:33 36.8 91 17 160/70 (100) 95 Room Air 08/22/22 06:58 Room Air 93 08/22/22 03:42 36.5 94 18 119/79 (92) 92 Room Air 0.00 0.00 08/21/22 23:36 36.8 88 18 159/93 (115) 96 Nasal Cannula 1.00 1.00 08/21/22 22:28 Nasal Cannula 1.00 08/21/22 22:20 189/111 (137) 08/21/22 22:13 173/111 (131) 08/21/22 20:45 96 Nasal Cannula 1.00 08/21/22 20:04 36.5 72 18 183/102 (129) 98 Nasal Cannula 3.00 08/21/22 17:35 Room Air 08/21/22 17:30 36.4 12 180/111 (134) 93 Room Air 08/21/22 17:20 OxyMask 4.00 08/21/22 17:20 18 167/101 (123) 99 OxyMask 2.00 08/21/22 17:10 20 185/103 (130) 98 OxyMask 4.00 08/21/22 17:05 OxyMask 4.00 08/21/22 17:00 20 182/112 (135) 98 OxyMask 4.00 08/21/22 16:50 20 149/96 (113) 95 OxyMask 4.00 08/21/22 16:50 OxyMask 4.00 08/21/22 16:40 20 123/79 (94) 95 OxyMask 8 08/21/22 16:35 36.5 16 102/69 (80) 94 OxyMask 8 08/21/22 16:35 OxyMask 8 I & O 08/22/22 07:00 Intake Total 50 ml Output Total 2800 ml Balance -2750 ml Capillary Refill : General Appearance: No Apparent Distress HEENT: PERRL/EOMI Neck: Full Range of Motion Respiratory: Chest Non Tender, Lungs Clear, Normal Breath Sounds Cardiovascular: Regular Rate, Rhythm Gastrointestinal: normal bowel sounds, soft, tenderness Extremity: Normal Capillary Refill Neurologic/Psychiatric: Alert, Oriented x3 Skin: Normal Color Lymphatic: No Adenopathy Results Lab Laboratory Tests 08/22/22 04:42: White Blood Count 12.8H, Red Blood Count 4.61, Hemoglobin 15.0, Hematocrit 43, Mean Corpuscular Volume 94, Mean Corpuscular Hemoglobin 33, Mean Corpuscular Hemoglobin Concent 35, Red Cell Distribution Width 12.6, Platelet Count 262, Mean Platelet Volume 11.1 08/22/22 05:00: Sodium Level 136, Potassium Level 3.6, Chloride Level 100, Carbon Dioxide Level 22, Anion Gap 14, Blood Urea Nitrogen 16, Creatinine 1.71H, Estimat Glomerular Filtration Rate 31, BUN/Creatinine Ratio 9, Glucose Level 114H, Calcium Level 8.5 Assessment/Plan Assessment/Plan Assess & Plan/Chief Complaint 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 increase ambulation. continue phase 1 clear liquids for next 2 weeks. CONNOR TOPETE MD Aug 22, 2022 10:45
[2022-08-22] MEDS ORDERED: HYDROcodone/APAP 7.5MG-325 MG/15 ML (LORTAB) UDC PO PRN (11:30)
[2022-08-22] MEDS ORDERED: METOCLOPRAMIDE INJ 10 MG/2 ML (REGLAN) IVP SCH (12:00)
[2022-08-22 12:22] VITALS: BP 152/75
[2022-08-22] MEDS ORDERED: ONDANSETRON 4 MG/2 ML (SDV) Z0FRAN IVP PRN (12:45)
== END 2022-08-22 12:58 | disposition home or self-care (01) | DRG 621 ==
LOC: 4TH 11:54 → SURG 11:55 → 4TH 17:55
PROVIDERS: ADMIT Surgery; ATTEND Surgery
PROC: 0BQT4ZZ Repair Diaphragm, Percutaneous Endoscopic Approach (ICD-10-PCS; 2022-08-21)
PROC: 0DB64Z3 Excision of Stomach, Percutaneous Endoscopic Approach, Vertical (ICD-10-PCS; principal; 2022-08-21 13:57)
DX: E66.01 Morbid (severe) obesity due to excess calories (principal); Z68.41 Body mass index [BMI] 40.0-44.9, adult; K21.9 Gastro-esophageal reflux disease without esophagitis; I10 Essential (primary) hypertension; E03.9 Hypothyroidism, unspecified; K44.9 Diaphragmatic hernia without obstruction or gangrene
CPT/HCPCS: 36415; 80048; 85027; 94640; 94664

== ENCOUNTER 2022-09-10 14:32 | Outpatient (CLI) | payer MEDICARE, OTHER ==
[~2022-09-10] VITALS: Wt 99.3 kg
[2022-09-10] MEDS ORDERED: NS IV 1000 ML 1,000 ML ONE (14:45)
[2022-09-10 14:50] VITALS: BP 128/83
[2022-09-10] MEDS ORDERED: NS IV 1000 ML 1,000 ML IV SCH (15:00)
== END 2022-09-10 16:00 ==
LOC: SDC 14:32
PROVIDERS: ATTEND Nurse Practitioner Family
DX: E86.0 Dehydration (principal); R53.83 Other fatigue; Z98.84 Bariatric surgery status
CPT/HCPCS: 96360; 96361